=== PATIENT | female | born 2005 | race African-American/Black ===

== ENCOUNTER 2024-10-12 12:17 | Emergency (ER) | payer SELFPAY ==
--- NOTE | ~2024-10-12 | US_ITS ---
EXAMINATION: US OB <=14 wk fetus w TV, US OB <= 14 wk fetus add gest DATE: 10/12/2024 18:55 ROASTMASTER INDICATION: Bleeding, cramping. COMPARISON: 06/03/2024 TECHNIQUE: Real-time transabdominal obstetric ultrasound. FINDINGS: 2 para 0 Last menstrual period is given as 08/15/2024 Estimated date of delivery by last menstrual period is 05/22/2025 Quantitative serum beta hCG is 249,790 The uterus measures 7.7 x 4.8 x 8.5 cm. 2 gestational sacs are visualized. The first gestational sac (baby A) demonstrates a crown-rump length of 19.6 mm, corresponding to an a pproximate gestational age of 8 weeks and 4 days. cardiac activity is identified at a rate of 162 bpm. The second gestational sac (baby B) demonstrates a crown-rump length measuring 19.8 mm, corresponding to an approximate gestational age of 8 weeks and 4 days. cardiac activity is identified at a rate of 176 bpm. A rounded yolk sac is identified measuring 3.9 mm Within the second gestational sac is an additional amniotic membrane which does not demonstrate a fet al pole, but does demonstrate a rounded yolk sac. The right ovary measures 15.4 x 12.1 x 13.2 cm. Dopplerable flow is identified. The left ovary measures 3.4 x 1.3 x 2.0 cm. Dopplerable flow is identified. Estimated date of delivery by ultrasound is 05/18/2025 IMPRESSION: Twin intrauterine gestation with an approximate gestational age of 8 weeks and 4 days, with car diac activity identified. An additional gestation is identified within the second gestational sac without a pole and only an amniotic membrane and yolk sac. Reviewed, dictated and finalized at location A. [facility]MASTER IMPRESSION: Twin intrauterine gestation with an approximate gestational age of 8 weeks and 4 days, with cardiac activity identified. An additional gestation is identified within the second gestational sac without a pole and only an amniotic membrane and yolk sac.
--- OUTSIDE RECORDS SUMMARY | 2024-10-12 12:34 | XMS_ITS | Referral Summary ---
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 Name Role Phone Unavailable Primary Care Provider Unavailabl e Allergies Active Allergy Reactions Criticality Noted Date Comments Iodinated Contrast Media Shortness of breath High Medications ondansetron ODT (ZOFRAN-ODT) 4 mg disintegrating tablet Take 1 tablet (4 mg total) by mouth every 8 (eight) hours as needed for nausea or vomiting 20 tablet 2 Active albuterol HFA (PROVENTIL HFA,VENTOLIN HFA,PROAIR HFA) 90 mcg/actuation inhaler Inhale 2 puffs every 4 (four) hours as needed for wheezing 1 each 2 Active dicyclomine (BENTYL) 20 mg tablet Take 1 tablet (20 mg total) by mouth every 6 (six) hours as needed (abdominal cramps) 20 tablet 2 Active LORazepam (ATIVAN) 0.5 mg tabletIndications:P anic attack Take 1 tablet (0.5 mg total) by mouth every 6 (six) hours as needed for anxiety 10 tablet 3 Active ondansetron (ZOFRAN) 4 mg tablet Take 1 tablet (4 mg total) by mouth every 6 (six) hours 12 tablet 3 Active predniSONE (DELTASONE) 20 mg tablet Take 4 tablets (80 mg) by mouth daily 4 PO x QD x 3 days, Then 3 PO q 3 D, then 2 PO QD x 3 D, Then 1 PO QD x 3 D then 1/2 PO QD x 3 D then stop. 33 tablet 3 Active estradioL (ESTRACE) 2 mg tablet Take 0.5 tablets (1 mg total) by mouth daily 15 tablet 3 Active hydrocortisone (ANUSOL-HC) 2.5 % rectal cream Insert into the rectum 2 (two) times a day 30 g 4 Active Social History Tobacco Use Types Packs/Day Years Used Date Smoking Tobacco: Never Alcohol Use Standard Drinks/Week Comments Yes 0 (1 standard drink = 0.6 oz pur e alcohol) social Personal Safety Answer Date Recorded Have you ever been in or are you currently in a harmful physical or emotional relationship or is someone making you feel afraid or unsafe? Denies 05/26/2024 Comments No Sex and Gender Information Value Date Recorded Sex Assigned at Not on file Legal Sex Female 8:41 PM [employer] Gender Identity Not on file Sexual Orientation Not on file Last Filed Vital Signs Vital Sign Reading Time Taken Comments Blood Pressure 123/65 05/26/2024 4:09 PM CDT Pulse 74 05/26/2024 4:09 PM CDT Temperature 37 C (98.6 F) 05/26/2024 1:24 PM CDT Respiratory Rate 18 05/26/2024 4:09 PM CDT Oxygen Saturation 100% 05/26/2024 4:09 PM CDT Inhaled Oxygen Concentration - - Weight 55 kg (121 lb 4.1 oz) 05/26/2024 1:24 PM CDT Height 162.6 cm (5' 4 ) 01/20/2023 6:53 AM CDT Body Mass Index 20.81 01/20/2023 6:53 AM CDT Plan of Treatment Not on file Insurance [facility]
--- OUTSIDE RECORDS SUMMARY | 2024-10-12 12:34 | XMS_ITS | Data Portability ---
Author Organization [facility] Address [address] [place] [address] Assessment Encounter Date Assessment Date Assessment LastModified by Organization Details LastModified Time 09/04/2024 09/04/2024 Annual gynecological exam performed. Patient will come back in a year unless there are new symptoms. Not available 09/04/2024 12:33:58 Plan of Treatment Reminders Order Date Submit Date Provider Last Modified By Organization Details Last Modified Time Details Appointments None recorded. Lab urinalysis, dipstick 2023 024 [email or web address], [address], [address], [place], [address], 4 14:33:24 hbcab (hepatitis B core Ab) igm, serum 2023 024 [facility] (Lab), [address], [place], [address], 4 20:37:07 HBsAg (hepatitis B surface Ag), serum 2023 024 [facility] (Lab), [address], [place], [address], 4 20:37:05 hepatitis C virus Ab, serum 2023 024 [facility] (Lab), [address], [place], [address], 4 20:37:06 HIV 1+2 AB + HIV 1 p24 Ag, qualitative immunoassay , serum 2023 024 [facility] (Lab), [address] [facility], [place], [address], 4 20:37:05 RPR (rapid plasma reagin), serum 2023 024 [facility] (Lab), [address] [facility], [place], [address], 4 20:37:07 Referral None recorded. Procedures None recorded. Surgeries None recorded. Imaging None recorded. Medication Orders Diflucan 150 mg tablet 2023 024 [facility] [id number], [address] , [place], [place], [id number], 4 09:04:53 Xulane 150 mcg-35 mcg/24 hr transdermal patch 2023 025 [id number], [address], [place], [place], [id number], 5 12:36:03 Patient TargetsNo targets recorded. Patient InstructionsNo instructions recorded. Reason for Referral None Reported. Results Created Date Observation Date Name Description Value Unit Range Abnormal Flag Note LastModifiedBy Organization Detail LastModifiedTime 12/31/19 24 12/31/2023 CT/GC AND TRICH OMONA S VAGIN KADE (RRNA ), SWAB chlamydia trachomatis, PCR Negati ve negati ve Not Available [facility] (Lab) [address] [facility], [place], [address], 01/02/2024 07:18:42 12/31/19 24 12/31/2023 CT/GC AND TRICH OMONA S VAGIN KADE (RRNA ), SWAB neisseria gonorrhoeae, PCR Negati ve negati ve Not Available [facility] (Lab) [address] [facility], [place], [address], 01/02/2024 07:18:42 04/30/20 24 12/31/2023 CT/GC AND TRICH OMONA S VAGIN KADE (RRNA ), SWAB trichomonas vaginalis ribosomal RNA (rrna) Negati ve negati ve Not Available [facility] (Lab) [address] [facility], [place], [address], 01/02/2024 07:18:42 12/31/19 24 12/31/2023 CULTU RE: URINE result report SEE RESULT S BELOW Test: Cultu re: Urine Speci men Sourc e: Urine Voide d Speci men Type: Urine Speci men Date: 2023 4:06 PM Resul t Date: 6:12 AM Resul t Statu s: Final resul t Abnor mal: No Resul ting Lab: [facility] [address] [facility] [address] Tel: CULTU RE ----- ----- ----- --- No growt h in 1 day (dete ction level of 10,00 0 colon ies / ml.) Not Available [facility] (Lab) [address] , [place], [address], 01/02/2024 07:18:43 12/31/19 24 12/31/2023 urina lysis , dipst ick Leukocytes +++ Not Available [facility] [address], [place], [address], 12/31/2023 13:02:23 12/31/19 24 12/31/2023 urina lysis , dipst ick Nitrite + Not Available [facility] [address], [place], [address], 12/31/2023 13:02:23 12/31/19 24 12/31/2023 urina lysis , dipst ick Protein trace Not Available [facility] [address], [place], [address], 12/31/2023 13:02:23 12/31/19 24 12/31/2023 urina lysis , dipst ick pH 5 Not Available [facility] [address], [place], [address], 12/31/2023 13:02:23 12/31/19 24 12/31/2023 urina lysis , dipst ick Blood +++ Not Available [facility] [address], [place], [address], 12/31/2023 13:02:23 12/31/19 24 12/31/2023 urina lysis , dipst ick Specific [place] 1.025 Not Available [facility] [address], [place], [address], 12/31/2023 13:02:23 03/19/20 24 03/19/2024 VAGIN ITIS/ VAGIN OSIS, DNA PROBE eloy sp. detection, direct probe Negati ve negati ve Not Available [facility] (Lab) [address] [facility], [place], [address], 03/20/2024 20:36:28 03/19/20 24 03/19/2024 VAGIN ITIS/ VAGIN OSIS, DNA PROBE gardnerella vag. detection, direct probe Positi ve negati ve abnormal Not Available [facility] (Lab) [address] [facility], [place], [address], 03/20/2024 20:36:28 03/19/20 24 03/19/2024 VAGIN ITIS/ VAGIN OSIS, DNA PROBE trichomonas vag. detection, direct probe Negati ve negati ve Not Available [facility] (Lab) [address] [facility], [place], [address], 03/20/2024 20:36:28 03/19/20 24 03/19/2024 CT/GC AND TRICH OMONA S VAGIN KADE (RRNA ), SWAB chlamydia trachomatis, PCR Negati ve negati ve Not Available [facility] (Lab) [address] [facility], [place], [address], 03/20/2024 20:36:29 03/19/20 24 03/19/2024 CT/GC AND TRICH OMONA S VAGIN KADE (RRNA ), SWAB neisseria gonorrhoeae, PCR Negati ve negati ve Not Available [facility] (Lab) [address] [facility], [place], [address], 03/20/2024 20:36:29 03/19/20 24 03/19/2024 CT/GC AND TRICH OMONA S VAGIN KADE (RRNA ), SWAB trichomonas vaginalis ribosomal RNA (rrna) Negati ve negati ve Not Available [facility] (Lab) [address] [facility], [place], [address], 03/20/2024 20:36:29 03/19/20 24 03/19/2024 HIV 1/2 ANTIG EN/AN TIBOD Y, REFLE X CONFI RMATI ON HIV antigen/anti body Nonrea ctive nonrea ctive HIV-1 antig en and HIV-1 /HIV- 2 antib odies were not detec ramiro. No labor atory evide nce of HIV infec tion. Not Available [facility] (Lab) [address] [facility], [place], [address], 03/20/2024 20:37:05 03/19/20 24 03/19/2024 HEPAT ITIS B SURFA CE ANTIG EN hepatitis B surface antigen Non-re active non-re active This assay was perfo rmed using [employer] ratio n reage nts and test kits. Value s obtai justo with other assay metho ds or kits canno t be used inter cruz eably . Not Available [facility] (Lab) [address] [facility], [place], [address], 03/20/2024 20:37:05 03/19/20 24 03/19/2024 HEPAT ITIS C ANTIB JAKOB SCREE N, REFLE X TO CONFI RMATI ON hepatitis C antibody Non-re active non-re active Antib odies to HCV Not Detec ramiro, does not exclu de the possi bilit y of expos ure to HCV. Not Available [facility] (Lab) [address] [facility], [place], [address], 03/20/2024 20:37:06 03/19/20 24 03/19/2024 HEPAT ITIS B CORE, IGM hepatitis B core IgM antibody Non-re active non-re active IgM anti- HBc not detec ramiro. Does not exclu de the possi bilit y of expos ure to or infec tion with HBV. Not Available [facility] (Lab) [address] [facility], [place], [address], 03/20/2024 20:37:07 03/19/20 24 03/19/2024 RPR SCREE N, REFLE X TITER /CONF IRMAT ION RPR screen Nonrea ctive nonrea ctive Not Available [facility] (Lab) [address] [place], [address], 03/20/2024 20:37:07 09/04/19 25 09/04/2024 IMAGE GUIDE D PAP, REFLE X HPV IF ASCUS ONLY image guided Pap, reflex HPV ASCUS only SEE RESULT S BELOW CASE REPOR T: Cytol ogy Gynec ologi aki Repor t Case: [id number] Autho roseline g Provi will: Tish King, RONAL Colle cted: 09/04 1333 Order ing Locat ion: [place] [facility] Recei mert: 09/07 1027 First Scree n: Noora ni, Moham ed, CT Speci men: Scree cally Pap - Image d, Cervi x STATE MENT OF ADEQU ACY: Satis facto ry for evalu ation Trans forma tion zone compo nent prese nt ----- ----- ----- ----- ----- ----- ----- ----- ----- ----- ----- ----- ----- ----- ----- ----- ----- ---- FINAL DIAGN OSIS: Negat nicolas for Intra epith elial Lesio n or Huma blandon (NIL) . Elect adriana allan d by Ari cortez, CT on 2024 at 2248 HEAD OF LOSS PREVENTION ----- ----- ----- ----- ----- ----- ----- ----- ----- ----- ----- ----- ----- ----- ----- ----- ----- ---- COMME NT: This speci men was revie wed by a Cytot echno logis t and/o r Patho logis t (as indic ated in this repor t) after evalu ation using the Thinp rep Imagi ng Syste m. CLINI AKI INFOR MATIO N: Menst rual Statu s: LMP (if appli cable ): Clini aki Histo ry/Pr eviou s Pap: Type of Neopl ernst (if appli cable ): Signi fican t Clini aki Findi ngs: Other Histo ry: Hormo louise (if appli cable ): PAP EDUCA CRYSTAL L NOTE: The Pap Test is a scree cally test with an inher ent false negat nicolas rate. Liqui d-bas ed sampl ing may decre ase, but will not elimi ricardo, false negat nicolas resul ts. A negat nicolas resul t does not precl ude the prese nce and/o r devel opmen t of disea se, since the prese nce of abnor mal cells in the sampl e depen ds on the locat ion of the lesio n and sampl ing techn ique. Joaquín nued regul ar scree cally is the best metho d of cance r preve ntion . If repor ramiro cytol ogic findi ng do not corre late with physi aki and/o r histo rical findi ngs, furth er inves tigat ion is recom gen d, as clini janelle acevedo nted. Not Available [facility] (Lab) [address] [facility], [place], [address], 09/12/2024 23:51:16 09/04/19 25 09/04/2024 CT/GC (ELODIA) , THINP REP VIAL chlamydia trachomatis, PCR Negati ve negati ve Not Available [facility] (Lab) [address] [facility], [place], [address], 09/12/2024 23:51:17 09/04/19 25 09/04/2024 CT/GC (ELODIA) , THINP REP VIAL neisseria gonorrhoeae, PCR Negati ve negati ve Not Available [facility] (Lab) [address] [facility], [place], [address], 09/12/2024 23:51:17 09/04/19 25 09/04/2024 TRICH OMONA S VAGIN KADE (RRNA ) trichomonas vaginalis ribosomal RNA (rrna) Negati ve negati ve Not Available [facility] (Lab) [address] [facility], [place], [address], 09/12/2024 23:51:18 Result Notes None recorded. Procedures Surgical History Date Name Laterality Status Provider Name and Address Organization Details Recorded Time 3 termination of completed [facility] 12/31/2023 12:45:41 2 termination of completed [facility] 12/31/2023 12:45:37 Imaging Results None recorded. Procedure Notes None recorded. Medical Equipment None Reported. Allergies No known drug allergies Medications Name Sig Start Date Stop Date Status Note LastModified by Organization Details LastModified Time doxycycline hyclate 100 mg capsule TAKE 1 CAPSULE BY MOUTH TWICE DAILY FOR 7 DAYS 09/04 completed Not Available Not Available Not Available fluconazole 150 mg tablet Take 1 tablet every day by oral route with meal(s) for 1 day. 03/23 completed Not Available Not Available Not Available metronidazo le 0.75 % (37.5 mg/5 gram) vaginal gel INSERT 1 APPLICATO RFUL VAGINALLY AT BEDTIME FOR 5 DAYS 09/04 completed Not Available Not Available Not Available prednisone 20 mg tablet 12/30 completed Not Available Not Available Not Available metronidazo le 500 mg tablet TAKE 1 TABLET BY MOUTH EVERY 12 HOURS FOR 7 DAYS 09/04 completed Not Available Not Available Not Available sulfamethox azole 800 mg-trimetho prim 160 mg tablet TAKE 1 TABLET BY MOUTH EVERY 12 HOURS FOR 3 DAYS 09/04 completed Not Available Not Available Not Available hydrocortis one 2.5 % topical cream with perineal applicator INSERT RECTALLY TO THE AFFECTED AREA TWICE DAILY 09/04 completed Not Available Not Available Not Available Depo-Configuration Consultant a 150 mg/mL intramuscul ar suspension Inject 1 mL every 3 months by intramusc ular route. 09/04 completed 12/17 Not Available Not Available Not Available cephalexin 500 mg capsule 12/30 completed Not Available Not Available Not Available estradiol 2 mg tablet 12/30 completed Not Available Not Available Not Available doxycycline hyclate 100 mg tablet TAKE 1 TABLET BY MOUTH TWICE DAILY WITH MEALS 03/19 completed Not Available Not Available Not Available amoxicillin 875 mg-potassiu m clavulanate 125 mg tablet TAKE 1 TABLET BY MOUTH EVERY 12 HOURS FOR 10 DAYS 12/30 completed Not Available Not Available Not Available Mayelin 0.25 mg-35 mcg tablet TAKE 1 TABLET BY MOUTH EVERY DAY 12/30 completed Not Available Not Available Not Available Zafemy 150 mcg-35 mcg/24 hr transdermal patch 09/04 completed Not Available Not Available Not Available Vitals Date Recorded Body height Body mass index (BMI) Body mass index (BMI) Percentile per age and sex Body weight Systolic blood pressure Diastolic blood pressure Provider Name and Address Organization Details Last Updated DateTime 4 162.56 cm 21.5 kg/m2 47 % 45749.0 5 g 114 mm[Hg] 73 mm[Hg] Lisbet Montaño [facility] 4 12:40:09 Date Recorded Body height Body mass index (BMI) Body mass index (BMI) Percentile per age and sex Body weight Systolic blood pressure Diastolic blood pressure Provider Name and Address Organization Details Last Updated DateTime 4 162.56 cm 21.8 kg/m2 50 % 33115.2 3 g 116 mm[Hg] 70 mm[Hg] Marianna Domingo [facility] 4 17:03:17 Date Recorded Body height Body mass index (BMI) Body weight Systolic blood pressure Diastolic blood pressure Provider Name and Address Organization Details Last Updated DateTime 09/04/2024 162.56 cm 19.5 kg/m2 18672.37 g 119 mm[Hg] 75 mm[Hg] Dominga Chapa [facility] 5 12:34:59 Social History Question Answer Notes LastModified by Organizat ion Details LastModified Time Tobacco Smoking Status Never Smoker Lisbet finn, [facility] 12/31/2023 12:44:42 Do You Have An Advance Directive? No [email or web address] Information n ot available 09/04/2024 What Is Your Level Of Alcohol Consumption? Occasional [email or web address] Information not available 09/04/2024 How Many Years Have You Consumed Alcohol? 5 Information not available 12/31/2023 Are You Blind Or Do You Have Difficulty Seeing? No Information n ot available 12/31/2023 What Is Your Level Of Caffeine Consumption? None Information not available 12/31/2023 How Much Tobacco Do You Chew? None [email or web address] Information not available 09/04/2024 In The 14 Days Before Symptom Onset, Have You Had Close Contact With A Laboratory-confirm ed COVID-19 While That Case Was Ill? No Information n ot available 12/31/2023 In The 14 Days Before Symptom Onset, Have You Had Close Contact With A Person Who Is Under Investigation For COVID-19 While That Person Was Ill? No Information not available 12/31/2023 Have You Been To An Area Known To Be High Risk For COVID-19? No Information not available 12/31/2023 Are You Deaf Or Do You Have Serious Difficulty Hearing? No Information not available 12/31/2023 What Type Of Diet Are You Following? REGULAR Information n ot available 12/31/2023 Which Illicit Or Recreational Drugs Have You Used? Marijuana Information not available 12/31/2023 What Is The Highest Grade Or Level Of School You Have Completed Or The Highest Degree You Have Received? [id number] Information not available 12/31/2023 What Is Your Occupation? [employer] [email or web address] Information not available 09/04/2024 Are There Any Guns Present In Your Home? No Information not available 12/31/2023 Do You Use Protection During Sex? No Information not available 12/31/2023 Do You Use Your Seat Belt Or Car Seat Routinely? No Information not available 12/31/2023 Do You Have Smoke And Carbon Monoxide Detectors In Your Home? Yes Information not available 12/31/2023 How Much Tobacco Do You Smoke? No Information not available 12/31/2023 Do You Feel Stressed (tense, Restless, Nervous, Or Anxious, Or Unable To Sleep At Night)? [id number] Information not available 12/31/2023 Do You Use Any Illicit Or Recreational Drugs? Yes Information not available 12/31/2023 Do You Use Sunscreen Routinely? No Information not available 12/31/2023 Have You Used IV Drugs? No Information not available 12/31/2023 Sex: Unknown Functional Status Question Answer Note LastModified by Organizat ion Details LastModified Time Do you have difficulty walking or climbing stairs? No Information not available 03/19/2024 Are you able to walk? YESWOREST Information not available 12/31/2023 Are you able to care for yourself? Yes Information not available 03/19/2024 Do you have difficulty dressing or bathing? No Information not available 03/19/2024 What is your exercise level? None Information not available 12/31/2023 Mental Status None recorded. Family History Relationship Description Onset Age of this Age Resolved Age Notes LastModified by Organization Details LastModified Time Unspecified Relation Family history unknown [email or web address] Not available 2024 12:10:46 Maternal Grandmother Malignant tumor of breast Not available 2023 12:44:25 Medical History Condition Response No Past Medical History Y Gynecological History Statement/Question Response Date of LMP 08/11/2024 On BCP's at Conception? N N Was last menstrual period normal Y STIs/STDs Y HPV Vaccine N Duration of Flow (days) 5 Current Control Method None Are cycles usually normal Y Frequency of Cycle (Q days) 28 Sexually Active? Y None Menses Monthly Y Age of first menstrual cycle 9 Date of Last Pap Smear Sexual Problems? N Desired Control Method None LMP Approximate N Obstetrics History GPAL:G 2 P 0 0 2 0 Type Value Induced 2 Living 0 Total 2 Past Encounters Encounter ID Performer Location Encounter Start Date Encounter Closed Date Diagnosis/Indication Diagnosis SNOMED-CT Code Diagnosis ICD10 Code Diagnosis Note [id number] [facility] [address] [address] 12/31/2023 12:32:02 12/31/2023 13:48:13 Urinary symptoms 257475055 R39.9 Today I agreed to send abx for treatment and send testing (std, urine, vag screening) .Agreeable to plan of care. Counseled on medication R/B's, Most common side effects, & use. All questions were answered to patient satisfacti on. Health Hx was reviewed and updated as reported in chart.Ryan crossSTD sent+nitra christian on urine dip Time spent in visit is a total of 30 mins with at least 50% of visit consisting of counseling and review of plan of care. Vaginitis 75158011 N76.0 Dysuria 04505990 R30.0 Urine cx sent [id number] DANETTE Silva [facility] [address] [address] 03/19/2024 16:57:40 03/19/2024 17:34:50 Contraception care management 677613081 Z30.9 Discussed all control options in great detail. Pt would like to start xulane patch. She is aware of the risks and benefits. She does not have any medical condition that is contraindi cated with the use of estrogen containing control. Pt will place the patch then replace weekly x 2 (total of 3 patches over 3 weeks) and week 4 no patch. She is aware it is not effective for control the first month. She is also aware that she will need to check placement daily to ensure it has not come off. Encouraged use of condoms as the patch does not protect against STI's. Will return in 3 months for med check. Consent was read and signed. Pt verbalized understand ing. Venereal d isease screening 595877647 Z11.3 Sexually t ransmitted infectious disease 1992571 A64 patient collected vaginitis and STI panel sentHIV/He p B&C/Syphil is testing ordered per pt requestsaf e sexual practices discussedv ulvar care bradford discussed Time spent in visit is a total of 30 mins with at least 50% of visit consisting of counseling and review of plan of care. [id number] DANETTE Silva [facility] [address] [address] 09/04/2024 12:10:23 09/04/2024 14:01:43 Gynecologic examination 32838737 Z01.419 WWEBC - declinedPa p - done todaySTI screen - declinedRo utine labs - PCPRTC in 1 yr or sooner if needed It is strongly advised to have an annual flu shot and up can obtain at most pharmacies . If you have not had a TDap shot in the last 10 years you should obtain one as well. Discussed with patient & provided with informatio n regarding the HPV vaccine if applicable . Encourage safe sexual practices, to use condoms and limit partners if not already in a monogamous relationsh ip. Do monthly self breast exams. BRCA testing is now available for patients with strong genetic history of female cancer. If interested contact the office. Engage in regular exercise. Avoid tobacco and illicit drugs. This lifestyle behavior pattern will lead to less health conditions and longer life span. If BMI greater than 25 dietary consult advised. Questions answered. Health Concerns Section Related Observation LastModified by Organization Detai ls LastModified Time None Recorded Concern Status LastModified by Organization Details LastModified Time None Recorded Advance Directives Directive N: Payers Encounter Date Sequence Insurance Name Policy Number Policy Eli Covered Member ID Eli Member ID Guarantor Name 12/31/2023 1 [facility] ON OR AFTER 03/02/21 (MEDICAID REPLACEMENT - HMO) Tess Cortes [id number] Tess Cortes 03/19/2024 1 [facility] ON OR AFTER 03/02/21 (MEDICAID REPLACEMENT - HMO) Tess Cortes [id number] Tess Cortes 09/04/2024 1 [facility] - DOS ON OR AFTER 21 (MEDICAID REPLACEMENT - HMO) Tess Cortes [id number] Tess Cortes Notes Date Note Type Note Provider Name and Address Organization Details Recorded Time 12/31/2023 text/html Tess is a 18yo reproductive age female here today with sx's of urinary urgency, frequency, bladder pressure; some dysuria.Went to urgent care but told she didn't have anything.Still with these sx's. Neg pain of abd/pelvis/flankNe g urinary sx'sNeg GI sx'sNeg N/V/F/C/DNeg Vag d/c, odor, irritation, itching Health Hx was reviewed and updated as reported in chart (in private) DANETTE Stephens[facility] [address], [place], [address], [facility] 12/31/2023 14:33:51 03/19/2024 text/html 18yo [id number] for BC consulthas been on depo, last injection 12/18/2023wants to discuss other options, int in the patch would like STI testinghad vaginal itching a few days ago, resolved after using OTC monistat denies h/o DVT/PE, HTN, Stroke/[place], cancer, liver disease, or migraine with aura DANETTE Silva [address], [place], [address], [facility] 03/19/2024 17:34:32 09/04/2024 text/html Annual GYNReport ed bypatient.Menstrua l cycle:Normal menses Urinary symptoms:No hematuria; No incontinence Vulva:No genital lesion Vagina:Normal vaginal discharge Breast:No breast pain; No breast lump; No nipple discharge Sexual complaints:No sexual complaints; No pain during intercourse; Normal libido Menopausal Symptoms:No menopausal symptoms; Normal vaginal lubrication Psychological symptoms:No depression; No anxiety; No PMDD Preventive measures:Encourage self breast examination; Encourage regular exercise; Encourage no tobacco use; Encourage regular mammograms starting age 40 DANETTE Silva [address], [place], [address], [facility] 09/04/2024 14:00:10 OBGyn Episode Ob Episode Information Episode Created Date Number of Fetuses Patient Bloodtype Patient rh Status Prepregnancy Weight lbs Domestic Partner Domestic Partner Phone Father Name [employer] Installer Status 12/31/19 24 1 CLOSED Fetus Data First Name Last Name Admitted to NICU Weight (g) Sex Living Outcome Pediatric Complications Fetus ID Race Codes Race Delivery Type , Induced [id number] Brandan Calculation Initial Brandan Date Initial Exam Date Initial Exam Provider Initial Ultrasound Date Last Menstrual Period Date Ultra Sound Weeks Gestation 0 Eighteen To Twenty Week Brandan Update Ultra Sound Date Fundal Height At Umbil Quickening Date Ultra Sound Latest Weeks Gestation Final Brandan Confirmed By Final Brandan Confirmed Date Final Brandan Date Ultra Sound Latest Days Gestation 0 0 Menstrual History Last Menstrual Date Menses Monthly On Bcp Conception Prior Menses Frequency Hcg Plus Date Menarche Onset Age Delivery Information Delivery Date Delivery Type Labor Anesthesia Weeks Gestation Incision Type Labor Labor Length Hrs Delivered By Post Complications Tubal Sterilization Discharge Date Comments 2 Discharge Information Feeding Method Contraceptive Method Maternal HG B and HCT Levels Ob Episode Information Episode Created Date Number of Fetuses Patient Bloodtype Patient rh Status Prepregnancy Weight lbs Domestic Partner Domestic Partner Phone Father Name Cabinet And 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 Installer Status 12/31/19 24 1 CLOSED Fetus Data First Name Last Name Admitted to NICU Weight (g) Sex Living Outcome Pediatric Complications Fetus ID Race Codes Race Delivery Type , Induced [id number] Brandan Calculation Initial Brandan Date Initial Exam Date Initial Exam Provider Initial Ultrasound Date Last Menstrual Period Date Ultra Sound Weeks Gestation 0 Eighteen To Twenty Week Brandan Update Ultra Sound Date Fundal Height At Umbil Quickening Date Ultra Sound Latest Weeks Gestation Final Brandan Confirmed By Final Brandan Confirmed Date Final Brandan Date Ultra Sound Latest Days Gestation 0 0 Menstrual History Last Menstrual Date Menses Monthly On Bcp Conception Prior Menses Frequency Hcg Plus Date Menarche Onset Age Delivery Information Delivery Date Delivery Type Labor Anesthesia Weeks Gestation Incision Type Labor Labor Length Hrs Delivered By Post Complications Tubal Sterilization Discharge Date Comments 3 Discharge Information Feeding Method Contraceptive Method Maternal HG B and HCT Levels
--- OUTSIDE RECORDS SUMMARY | 2024-10-12 12:34 | XMS_ITS | Clinical Summary ---
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 Gender Identity Not on file Sexual Orientation Not on file Obstetrics History Para Term AB IAB SAB Ectopic Multiple Livin g Live Births 1 Date Outcome GA Total Labor Labor/2nd/3rd Weight Sex Type Anes PTL Flor A1 A5 Name Clin Last Filed Vital Signs Vital Sign Reading [...] 01/20/2023 6:53 AM CDT Plan of Treatment Health Maintenance Due Date Last Done Comments Cervical Cancer Screening 2003 Depression Screening 2003 Hepatitis C Screening 2003 HPV Vaccines (3 - 2-dose series) 09/30/2014 06/03/2014, 03/30/2014 Meningococcal B Vaccine (1 of 2 - Patient Seeks Protection) 2019 Regular Well Visit/Exam 18-64 2021 DTaP/Tdap/Td Vaccine (6 - Td or Tdap) 03/30/2024 03/30/2014, 03/26/2005, 02/10/2004, Additional history exists Influenza Vaccine (#1) 2024 06/03/2014, 2011 Pneumococcal vaccine <65 Aged Out 2003, 10/31 No longer eligible based on patient's age to complete this topic Varicella Vaccines Completed 03/30/2014, 03/26/2005 Meningococcal Vaccine Aged Out 06/03/2014 No chuck dominik eligible based on patient's age to complete this topic Insurance [facility]
[2024-10-12 12:47] VITALS: BP 119/72; PULSE 82; RESP 20; TEMP 37.2; O2SAT 100
--- NOTE | 2024-10-12 14:03 | ED_ITS ---
HPI - General Chief complaint: Vaginal Bleeding <Mlya Garcias PA-C - Last Filed: 10/14/24 18:47> Stated complaint: 8 weeks , bleeding x2 weeks, <Myla Garcias PA-C - Last Filed: 10/14/24 18:47> Time Seen by Provider: 10/12/24 14:03 <Myla Garcias PA-C - Last Filed: 10/14/24 18:47> Focused HPI: This is a 19 year old female that presents to the ER for vaginal bleeding. Reports she has had nausea, vomiting, diarrhea, pelvic cramping. She has had vaginal spotting/bleeding the last couple of weeks. She has not had an US yet this . She is about 8 weeks . She does not have an PATIENT TRANSITION SPECIALIST. GENERAL: Well-appearing, well-nourished, and in no acute distress. HEAD: Normocephalic, atraumatic. CHEST: Clear to auscultation. ?No respiratory distress. HEART: Regular rate and rhythm.? NEURO: ?Alert and oriented x3. Patient screened in triage and initial orders placed.? ?Additional care and disposition to be based upon?diagnostic testing and treatment. <Myla Garcias PA-C - Last Filed: 10/14/24 18:47> History of Present Illness HPI Narrative: I agree with the assessment and documentation of Dieter Lanza PA-C. < Jolanta Gilmore APRN - Last Filed: 10/12/24 20:01> Related Data Allergies/Adverse reactions: Allergies Allergy/AdvReac Type Severity Reaction Status Date / Time No Known Allergies Allergy Verified 10/12/24 19:02 <Myla Garcias PA-C - Last Filed: 10/14/24 18:47> Review of Systems 2 Review of Systems: All systems reviewed & are unremarkable except as noted in HPI and below <Jolanta Gilmore APRN - Last Filed: 10/12/24 20:01> [facility] Past Medical History Medical History: Medical History (Updated 10/14/24 @ 18:46 by Myla Garcias PA-C) No active medical problems <Myla Garcias PA-C - Last Filed: 10/14/24 18:47> Exam 2 Narrative: GENERAL: Well appearing, well-nourished, non-toxic, in no acute distress. HEAD: Normocephalic, atraumatic. NECK: Supple. No adenopathy, no masses. RESPIRATORY: Airway patent, respirations nonlabored. Clear to auscultation bilaterally, no rales, rhonchi, wheezing. CARDIOVASCULAR: Regular rate and rhythm without murmurs, rubs, or gallops. Peripheral pulses 2+ and equal bilaterally. ABDOMINAL: Soft, + suprapubic tenderness, nondistended, no hepatosplenomegaly. Normoactive BS. MUSCULOSKELETAL: Moves all extremities. Strength/ROM intact without gross deformities. SKIN: Warm, dry, normal color. No rashes. NEURO: A&O X3. Speech clear. Cranial nerves II-XII grossly intact. Steady gait. No ataxic movements. PSYCHIATRIC: Appropriate mood and affect. Normal interaction. *Pt declined a vaginal exam. <Jolanta Gilmore APRN - Last Filed: 10/12/24 20:01> Course Vital Signs Vital signs: Vital Signs Temperature 98.9 F 10/12/24 12:47 Pulse Rate 82 10/12/24 12:47 Respiratory Rate 20 10/12/24 12:47 Blood Pressure 119/72 10/12/24 12:47 Pulse Oximetry 100 10/12/24 12:47 Oxygen Delivery Room Air 10/12/24 12:47 Temperature 98.9 F 10/12/24 12:47 Pulse Rate 82 10/12/24 12:47 Respiratory Rate 20 10/12/24 12:47 Blood Pressure 119/72 10/12/24 12:47 Pulse Oximetry 100 10/12/24 12:47 Oxygen Delivery Room Air 10/12/24 12:47 <Myla Garcias PA-C - Last Filed: 10/14/24 18:47> Vital Signs Temperature 98.9 F 10/12/24 12:47 Pulse Rate 82 10/12/24 12:47 Respiratory Rate 20 10/12/24 12:47 Blood Pressure 119/72 10/12/24 12:47 Pulse Oximetry 100 10/12/24 12:47 Oxygen Delivery Room Air 10/12/24 12:47 Temperature 98.9 F 10/12/24 12:47 Pulse Rate 82 10/12/24 12:47 Respiratory Rate 20 10/12/24 12:47 Blood Pressure 119/72 10/12/24 12:47 Pulse Oximetry 100 10/12/24 12:47 Oxygen Delivery Room Air 10/12/24 12:47 <Jolanta Gilmore APRN - Last Filed: 10/12/24 20:01> MDM - OB/Uterine Contractions MDM Narrative Medical decision making narrative: Patient is a 19 year old female that presents to the ER for vaginal bleeding. Reports she has had nausea, vomiting, diarrhea, pelvic cramping. She has had vaginal spotting/bleeding the last couple of weeks. She has not had an US yet this . She is about 8 weeks . She does not have an PATIENT TRANSITION SPECIALIST. Pt also endorses bilateral conjunctivitis that started in her L eye and has moved to her R eye. She reports she was on antibiotic eye drops, but the infection isn't getting better. Labs Ordered: CMP, CBC, beta HCG, Rho D Immune Globulin Imaging Ordered: Ultrasound Ob less than 14 weeks Medications Ordered: Reglan PO (nausea) Results: Patient's ultrasound indicated Twin intrauterine gestation with an approximate gestational age of 8 weeks and 4 days, with cardiac activity identified. An additional gestation is identified within the second gestational sac without a pole and only an amniotic membrane and yolk sac. Diagnosis: Twin intrauterine gestation, abnormal vaginal bleeding during Consults: OTOLARYNGOLOGY PHYSICIAN (outpatient) Patient Education/Shared MDM: Results shared with patient. She verbalizes understanding of US results. Patient declined a vaginal exam and says she will follow-up with an OBGYN for the examination. Patient strongly advised to maintain hydration status upon discharge and follow-up with an OBGYN as soon as possible. She continues to endorse nausea, so pt will be given a dose of Reglan here in the ER. Pt will be discharged home with prescription for Reglan to help treat her nausea and erythromycin ointment to treat her eye infection. Strict return precautions provided. Patient verbalized understanding is in agreement with plan. Vital signs stable at time of discharge. All questions answered. < Jolanta Gilmore APRN - Last Filed: 10/12/24 20:01> Differential Diagnosis Differential diagnosis: Likely other (threatened , abnormal uterine bleeding during ) <Jolanta Gilmore APRN - Last Filed: 10/12/24 20:01> Lab Data Attestation: I reviewed the patient's lab results. <Jolanta Gilmore, ELKE - Last Filed: 10/12/24 20:01> Result diagrams: 10/12/24 16:18 10/12/24 16:18 <Myla Garcias PA-C - Last Filed: 10/14/24 18:47> Labs: Lab Results 10/12/24 Range/Units 16:18 WBC 6.2 (4.5-10.0) K/mm3 RBC 4.81 (4.2-5.4) M/mm3 Hgb 12.4 (12.0-15.0) g/dL Hct 37.1 (37.0-47.0) % MCV 77.1 L (80-100) fl MCH 25.8 L (26-34) pg MCHC 33.4 (32-36) g/dl RDW 15.2 H (11.5-14.5) % Plt Count 216 (150-375) k/mm3 MPV 11.9 H (7.4-10.4) fl Immature Gran % (Auto) Not Reportable Neut % (Auto) Not Reportable Lymph % (Auto) Not Reportable [place] % (Auto) Not Reportable Eos % (Auto) Not Reportable Baso % (Auto) Not Reportable Lymph # (Auto) Not Reportable [place] # (Auto) Not Reportable Eos # (Auto) Not Reportable Baso # (Auto) Not Reportable Abs Immat Gran (auto) Not Reportable Absolute Neuts (auto) Not Reportable Absolute Nucleated RBC Not Reportable Total Counted 100 Neutrophils % (Manual) 70 (46-73) % Lymphocytes % (Manual) 27.0 (18-44) % Monocytes % (Manual) 3 (3-9) % Nucleated RBC % Not Reportable Abs Lymphs (Manual) 1.67 (1.1-4.5) K/mm3 Abs Monocytes (Manual) 0.18 (0.1-0.90) K/mm3 Platelet Estimate Adequate (Adequate) Large Platelets Present Anisocytosis 2+ Microcytosis 1+ (NORMAL) Schistocytes None seen Sodium 137 (137-145) mmol/L Potassium 3.5 (3.4-5.0) mmol/L Chloride 106 (98-107) mmol/L Carbon Dioxide 16 L (22-30) mmol/L Anion Gap 15 H (4-12) mmol/L BUN 8 (7-17) mg/dL Creatinine 0.39 L (0.7-1.0) mg/dL Estim Creat Clear Calc 147 ml/min Estimated GFR > 60 (59 - ) Glucose 70 (65-110) mg/dL Calcium 9.3 (8.4-10.2) mg/dL Total Bilirubin 0.7 (0.2-1.3) mg/dL AST 19 (14-36) U/L ALT 13 (6-35) U/L Alkaline Phosphatase 50 (38-126) U/L Total Protein 7.0 (6.3-8.2) g/dL Albumin 3.9 (3.5-5.1) g/dL Beta HCG, Quant 121163.00 mIU/ML Blood Type A Positive Antibody Screen Negative Screen TNP Baby's Blood Type TNP Baby's DAVID TNP Doses of RhIg Required 0 <Myla Garcias PA-C - Last Filed: 10/14/24 18:47> Lab Results 10/12/24 Range/Units 16:18 WBC 6.2 (4.5-10.0) K/mm3 RBC 4.81 (4.2-5.4) M/mm3 Hgb 12.4 (12.0-15.0) g/dL Hct 37.1 (37.0-47.0) % MCV 77.1 L (80-100) fl MCH 25.8 L (26-34) pg MCHC 33.4 (32-36) g/dl RDW 15.2 H (11.5-14.5) % Plt Count 216 (150-375) k/mm3 MPV 11.9 H (7.4-10.4) fl Immature Gran % (Auto) Not Reportable Neut % (Auto) Not Reportable Lymph % (Auto) Not Reportable [place] % (Auto) Not Reportable Eos % (Auto) Not Reportable Baso % (Auto) Not Reportable Lymph # (Auto) Not Reportable [place] # (Auto) Not Reportable Eos # (Auto) Not Reportable Baso # (Auto) Not Reportable Abs Immat Gran (auto) Not Reportable Absolute Neuts (auto) Not Reportable Absolute Nucleated RBC Not Reportable Total Counted 100 Neutrophils % (Manual) 70 (46-73) % Lymphocytes % (Manual) 27.0 (18-44) % Monocytes % (Manual) 3 (3-9) % Nucleated RBC % Not Reportable Abs Lymphs (Manual) 1.67 (1.1-4.5) K/mm3 Abs Monocytes (Manual) 0.18 (0.1-0.90) K/mm3 Platelet Estimate Adequate (Adequate) Large Platelets Present Anisocytosis 2+ Microcytosis 1+ (NORMAL) Schistocytes None seen Sodium 137 (137-145) mmol/L Potassium 3.5 (3.4-5.0) mmol/L Chloride 106 (98-107) mmol/L Carbon Dioxide 16 L (22-30) mmol/L Anion Gap 15 H (4-12) mmol/L BUN 8 (7-17) mg/dL Creatinine 0.39 L (0.7-1.0) mg/dL Estim Creat Clear Calc 147 ml/min Estimated GFR > 60 (59 - ) Glucose 70 (65-110) mg/dL Calcium 9.3 (8.4-10.2) mg/dL Total Bilirubin 0.7 (0.2-1.3) mg/dL AST 19 (14-36) U/L ALT 13 (6-35) U/L Alkaline Phosphatase 50 (38-126) U/L Total Protein 7.0 (6.3-8.2) g/dL Albumin 3.9 (3.5-5.1) g/dL Beta HCG, Quant 830791.00 mIU/ML Blood Type A Positive Antibody Screen Negative Screen TNP Baby's Blood Type TNP Baby's DAVID TNP Doses of RhIg Required 0 <Jolanta Gilmore APRN - Last Filed: 10/12/24 20:01> Imaging Data Attestation: I personally reviewed and interpreted this imaging study as follows: < Jolanta Gilmore APRN - Last Filed: 10/12/24 20:01> Radiologist's impression: Impressions Ultrasound 10/12/24 18:54 IMPRESSION: Twin intrauterine gestation with an approximate gestational age of 8 weeks and 4 days, with cardiac activity identified. An additional gestation is identified within the second gestational sac without a pole and only an amniotic membrane and yolk sac. Obstetrics Ultrasound 10/12/24 18:54 IMPRESSION: Twin intrauterine gestation with an approximate gestational age of 8 weeks and 4 days, with cardiac activity identified. An additional gestation is identified within the second gestational sac without a pole and only an amniotic membrane and yolk sac. <Jolantasydnee Gilmore APRN - Last Filed: 10/12/24 20:01> Critical Care Time Critical Care Time Critical Care Time: No <Myla Garcias PA-C - Last Filed: 10/14/24 18:47> Discharge Plan Discharge Clinical Impression: Threatened , Dysfunctional uterine bleeding <Myla Garcias PA-C - Last Filed: 10/14/24 18:47> Patient Disposition: Home, Self-Care <Myla Garcias PA-C - Last Filed: 10/14/24 18:47> Condition: Stable <TASHA Barry Last Filed: 10/14/24 18:47> Instructions: Antibiotic Form, Threatened Miscarriage (ED), (ED) <Myla Garcias PA-C - Last Filed: 10/14/24 18:47> Additional Instructions: Please return to the ER with an worsening symptoms. Follow-up with an OBGYN as soon as possible. Take all medications as prescribed. <Myla Garcias PA-C - Last Filed: 10/14/24 18:47> Patient Language: Danish <Myla Garcias PA-C - Last Filed: 10/14/24 18:47> Prescriptions: New erythromycin 5 mg/gram (0.5 %) ointment 0.5 inch EACH EYE TID 5 Days Qty: 50 0RF metoclopramide HCl [Reglan] 10 mg tablet 10 mg PO Q6H PRN (Reason: nausea and vomiting) Qty: 20 0RF <Myla Garcias PA-C - Last Filed: 10/14/24 18:47> Follow-up/Referrals: Devin Vasquez MD [Physician] - (PATIENT TRANSITION SPECIALIST) PHYSICIAN NOT ON STAFF,NONSTAFF [Primary Care Provider] - <Myla Garcias PA-C - Last Filed: 10/14/24 18:47> Time of Disposition: 19:49 <Myla Garcias PA-C - Last Filed: 10/14/24 18:47> 19:49 <Jolanta Gilmore APRN - Last Filed: 10/12/24 20:01>
[2024-10-12 16:25] LABS: Hematocrit 37.1 % (37.0-47.0); Hemoglobin 12.4 g/dL (12.0-15.0); Mean Corpuscular HGB Conc 33.4 g/dl (32-36); Mean Corpuscular Hemoglobin 25.8 pg (26-34); Mean Corpuscular Volume 77.1 fl (80-100); Mean Platelet Volume 11.9 fl (7.4-10.4); Platelet Count Result 216 k/mm3 (150-375); Red Blood Count 4.81 M/mm3 (4.2-5.4); Red Cell Distribution Width 15.2 % (11.5-14.5); White Blood Count 6.2 K/mm3 (4.5-10.0)
[2024-10-12 16:35] LABS: Alanine Aminotransferase 13 U/L (6-35); Albumin Level 3.9 g/dL (3.5-5.1); Alkaline Phosphatase 50 U/L (38-126); Anion Gap 15 mmol/L (4-12); Aspartate Amino Transferase 19 U/L (14-36); Bilirubin,Total 0.7 mg/dL (0.2-1.3); Blood Urea Nitrogen 8 mg/dL (7-17); Calcium 9.3 mg/dL (8.4-10.2); Carbon Dioxide 16 mmol/L (22-30); Chloride 106 mmol/L (98-107); Estimated CRCL calculation 147 ml/min; Estimated Glomerular Filt Rate > 60; Glucose 70 mg/dL (65-110); Potassium 3.5 mmol/L (3.4-5.0); Sodium 137 mmol/L (137-145)
[2024-10-12 16:46] LABS: Large Platelets Present; Lymphocytes Absolute Manual 1.67 K/mm3 (1.1-4.5); Monocytes Absolute Manual 0.18 K/mm3 (0.1-0.90); Monocytes Percent Manual 3 % (3-9); Neutrophils Percent Manual 70 % (46-73); Total Cells Counted 100
[2024-10-12 16:47] LABS: Anisocytosis 2+; Microcytosis 1+ (NORMAL); Platelet Estimate Adequate (Adequate); Schistocytes None Seen
--- OUTSIDE RECORDS SUMMARY | 2024-10-12 18:58 | XMS_ITS | Referral Summary ---
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
--- OUTSIDE RECORDS SUMMARY | 2024-10-12 18:58 | XMS_ITS | Clinical Summary ---
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
[2024-10-12] MEDS: SODIUM CHLORIDE 0.9% IV 1,000 ML 999 ML IV CONT (19:04)
[2024-10-12] MEDS: METOCLOPRAMIDE HCL 10 MG TABLET PO (19:53)
== END 2024-10-12 20:59 | disposition home or self-care (01) ==
PROVIDERS: Physician Assistant; Emergency Provider Registered Nurse
DX: O20.0 Threatened abortion (principal); Z3A.08 8 weeks gestation of pregnancy
CPT/HCPCS: 36415; 76801; 76802; 76817; 80053; 84702; 85025; 85461; 86850; 86900; 86901; 96360; 99284; A9270; J7030

== ENCOUNTER 2024-11-05 08:40 | Emergency (ER) | payer OTHER, SELFPAY ==
--- NOTE | ~2024-11-05 | US_ITS ---
EXAMINATION: US OB <= 14 weeks fetus, US OB <= 14 wk fetus add gest DATE: 11/05/2024 10:11 INDICATION: Abdominal pain during first trimester of a twin TECHNIQUE: Real-time pelvic ultrasound utilizing both a transvaginal and transabdominal probe was pe rformed. The interpreting radiologist was not present for the study. COMPARISON: None. FINDINGS: The uterus measures 12.3 x 7.7 x 10.3 cm. There is a single bilobed intrauterine gestational sac with 2 living fetuses. A previously the 2 fetuses were each located in one of the components of the gesta tional sac which communicated by 2 mm anechoic isthmus on the prior study. In the current study fetus B is positioned with the vertex within the smaller component of the gestational sac located more ant eriorly at the fundus, the neck at the isthmus of the gestational sac and the thorax, abdomen a nd extremities of fetus B positioned along with fetus a within the larger component of the gestationa l sac. The isthmus measures up to 10 mm in maximal diameter on the current study. There is a thin int ervening membrane consistent with a monochorionic, diamniotic . There is a 4.1 x 1.4 x 2.9 c m ovoid hypoechoic subserosal fibroid along the anterior margin of the uterus. The crown rump length for fetus A measures 6.0 cm, which correlates with an estimated gestational age of 12 weeks and 3 days. heart motion is identified measuring 151 beats per minute (bpm) by M-m ode Doppler. The crown rump length for fetus B measures 6.1, which correlates with an estimated gestational age of 12 weeks and 4 days. heart motion is identified measuring 150 beats per minute (bpm) by M-mode Doppler. The bilateral ovaries are not visualized. There is no free fluid in the pelvis. IMPRESSION: 1. Monochorionic, diamnionic with 2 living fetuses. There is an irregular configuration to the gestational sac with bilobed appearance and shelf like extension of the gestational sac which re sults in a narrow isthmus the 2 lobes of the sac. Fetus B is currently positioned with the neck at the isthmus with the head in the smaller lobe and the remainder of the body and extrem ities positioned within the larger lobe along with the second fetus A. For reference the width of the isthmus measures approximately 1.0 cm relative to the diameter of the head of fetus B which measures approximately 2.3 cm. 2. crown-rump length measurements for both fetuses are concordant with the previously estimated gestational age by ultrasound of 12 weeks 2 day(s) chest upon the earlier ultrasound performed on 06/2025 which yielded an ultrasound estimated date of delivery (BERNADINE) of 05/18/2025. Please correlate w ith clinical information or earlier ultrasounds for most accurate BERNADINE. Reviewed, dictated and finalized at location L. ARY CLERK IMPRESSION: 1. Monochorionic, diamnionic with 2 living fetuses. There is an irre gular configuration to the gestational sac with bilobed appearance and shelf li ke extension of the gestational sac which results in a narrow isthmus separatin g the 2 lobes of the sac. Fetus B is currently positioned with the neck a t the isthmus with the head in the smaller lobe and the remainder of the body a nd extremities positioned within the larger lobe along with the second fetus A. For reference the width of the isthmus measures approximately 1.0 cm relative to the diameter of the head of fetus B which measures approximately 2.3 cm. 2. crown-rump length measurements for both fetuses are concordant with th e previously estimated gestational age by ultrasound of 12 weeks 2 day(s) chest upon the earlier ultrasound performed on 10/12/2024 which yielded an ultrasound estimated date of delivery (BERNADINE) of 05/18/2025. Please correlate with clinical information or earlier ultrasounds for most accurate BERNADINE.
[2024-11-05 08:39] VITALS: BP 135/92; PULSE 110; RESP 22; TEMP 36.9; O2SAT 100
[2024-11-05 09:03] LABS: Basophils Percent Auto 0.6 % (0.2-1.2); Eosinophils Absolute Auto 0.1 K/mm3 (0-0.3); Eosinophils Percent Auto 1.7 % (0-4.4); Hematocrit 33.6 % (37.0-47.0); Hemoglobin 11.2 g/dL (12.0-15.0); Immature Granulocyte Absolute 0.02 K/mm3 (0.00-0.031); Immature Granulocyte Percent A 0.4 % (0-0.5); Lymphocytes Percent Auto 31.5 % (18.3-44.2); Mean Corpuscular HGB Conc 33.3 g/dl (32-36); Mean Corpuscular Hemoglobin 25.9 pg (26-34); Mean Corpuscular Volume 77.8 fl (80-100); Mean Platelet Volume 11.4 fl (7.4-10.4); Monocytes Absolute Auto 0.5 K/mm3 (0.1-0.6); Monocytes Percent Auto 8.3 % (2.6-8.5); Neutrophils Absolute Auto 3.1 K/mm3 (1.3-6.7); Neutrophils Percent Auto 57.5 % (45.5-73.1); Platelet Count Result 218 k/mm3 (150-375); Red Blood Count 4.32 M/mm3 (4.2-5.4); Red Cell Distribution Width 15.6 % (11.5-14.5); White Blood Count 5.4 K/mm3 (4.5-10.0)
[2024-11-05 09:17] LABS: Alanine Aminotransferase 15 U/L (6-35); Albumin Level 3.7 g/dL (3.5-5.1); Alkaline Phosphatase 47 U/L (38-126); Anion Gap 11 mmol/L (4-12); Aspartate Amino Transferase 22 U/L (14-36); Bilirubin,Total 0.5 mg/dL (0.2-1.3); Blood Urea Nitrogen 8 mg/dL (7-17); Calcium 9.1 mg/dL (8.4-10.2); Carbon Dioxide 17 mmol/L (22-30); Chloride 109 mmol/L (98-107); Estimated CRCL calculation 159 ml/min; Estimated Glomerular Filt Rate > 60; Glucose 74 mg/dL (65-110); Potassium 3.8 mmol/L (3.4-5.0); Sodium 137 mmol/L (137-145)
[2024-11-05 09:27] LABS: INR 1.1; Prothrombin Time 14.2 Seconds (11.1-14.7)
[2024-11-05 09:28] LABS: Partial Thromboplastin Time 26.8 Seconds (22.3-36.8)
--- NOTE | 2024-11-05 10:00 | ED.ABDPAIN ---
HPI - Abdominal Pain General Chief Complaint: Abdominal Pain Stated Complaint: lower abd pain, 11 wks Time Seen by Provider: 11/05/24 09:01 Source: patient Mode of arrival: ambulatory Limitations: no limitations History of Present Illness HPI narrative: Patient is a 19 y/o female who presents to the ED with c/o abdominal pain. Patient reports having lower abdominal cramping that began last night, worsening today. Patient is currently 11 weeks gestation with twin . . Saw Maternal- Medicine at [facility] yesterday and was told 1 of the baby's has a band wrapped around its waist and may have developmental issues. Patient expresses her interest in terminating the . She denies any vaginal bleeding. Reports intermittent nausea, denies vomiting. Denies fevers. Related Data Allergies Allergy/AdvReac Type Severity Reaction Status Date / Time No Known Allergies Allergy Verified 11/05/24 11:40 Review of Systems Review of Systems: All systems reviewed & are unremarkable except as noted in HPI. All systems reviewed & are unremarkable except as noted in HPI and below PMFSH Past Medical History Medical History (Updated 11/05/24 @ 17:34 by Sasha Masters PA-C) No active medical problems Exam Narrative: GENERAL: Well appearing, thin, non-toxic, in no acute distress. HEAD: Normocephalic, atraumatic. RESPIRATORY: Airway patent, respirations nonlabored. Clear to auscultation bilaterally, no rales, rhonchi, wheezing. CARDIOVASCULAR: Regular rate and rhythm ABDOMINAL: Soft, mild TTP in LLQ, nondistended. Normoactive BS. MUSCULOSKELETAL: Moves all extremities. No gross deformities. SKIN: Warm, dry, normal color. NEURO: A&O X3. Speech clear. PSYCHIATRIC: Appropriate mood and affect. Normal interaction. Course Vital Signs Vital signs: Vital Signs Temperature 98.4 F 11/05/24 08:39 Pulse Rate 110 H 11/05/24 08:39 Respiratory Rate 22 H 11/05/24 08:39 Blood Pressure 135/92 H 11/05/24 08:39 Pulse Oximetry 100 11/05/24 08:39 Oxygen Delivery Room Air 11/05/24 08:39 Temperature 97.8 F 11/05/24 10:35 Pulse Rate 72 11/05/24 11:28 Respiratory Rate 16 11/05/24 11:28 Blood Pressure 127/76 11/05/24 11:28 Pulse Oximetry 100 11/05/24 11:28 Oxygen Delivery Room Air 11/05/24 08:39 MDM - Abdominal Pain MDM Narrative Medical decision making narrative: Patient presented to ED with lower abdominal cramping. Currently 11 weeks gestation with twins. Seeing Danette PARKER, had US yesterday and was told abnormal. Vital signs stable upon arrival. Patient in no acute distress upon my evaluation. Cbc without leukocytosis. CMP is unremarkable. Blood type is A positive. Beta-hCG today is 149787. This is decreased from previous HCG in October around 250,000. UA is clear, no signs of infection. Ultrasound today showing monochorionic, diamniotic , 2 living fetuses, but abnormal bilobed gestational sac with narrow isthmus is causing abnormal positioning of Fetus B. This is consistent with patient's report of Danette PARKER's ultrasound reading yesterday. Patient aware of these findings and abnormal gestational sac. Patient has follow-up with Danette PARKER in the next 2 weeks. Advised she will need to follow-up with them for further management of and/or termination if that is the route she decides. Recommended to continue Tylenol, hydration, heating pad for cramping. Given return precautions. Patient is in agreement with plan. Discharged in stable condition. Medical Records Attestation: I reviewed the patient's medical records. Lab Data Attestation: I reviewed the patient's lab results. 11/05/24 08:54 11/05/24 08:54 Labs: Lab Results 11/05/24 11/05/24 Range/Units 08:54 10:42 WBC 5.4 (4.5-10.0) K/mm3 RBC 4.32 (4.2-5.4) M/mm3 Hgb 11.2 L (12.0-15.0) g/dL Hct 33.6 L (37.0-47.0) % MCV 77.8 L (80-100) fl MCH 25.9 L (26-34) pg MCHC 33.3 (32-36) g/dl RDW 15.6 H (11.5-14.5) % Plt Count 218 (150-375) k/mm3 MPV 11.4 H (7.4-10.4) fl Immature Gran % (Auto) 0.4 (0-0.5) % Neut % (Auto) 57.5 (45.5-73.1) % Lymph % (Auto) 31.5 (18.3-44.2) % Pacific % (Auto) 8.3 (2.6-8.5) % Eos % (Auto) 1.7 (0-4.4) % Baso % (Auto) 0.6 (0.2-1.2) % Lymph # (Auto) 1.70 (0.9-3.2) K/mm3 Pacific # (Auto) 0.5 (0.1-0.6) K/mm3 Eos # (Auto) 0.1 (0-0.3) K/mm3 Baso # (Auto) 0.0 (0.0-0.1) K/mm3 Abs Immat Gran (auto) 0.02 (0.00-0.031) K/mm3 Absolute Neuts (auto) 3.1 (1.3-6.7) K/mm3 Absolute Nucleated RBC 0.000 (0.0-0.012) K/mm3 Nucleated RBC % 0.0 (0.0-0.2) % PT 14.2 (11.1-14.7) Seconds INR 1.1 APTT 26.8 (22.3-36.8) Seconds Sodium 137 (137-145) mmol/L Potassium 3.8 (3.4-5.0) mmol/L Chloride 109 H (98-107) mmol/L Carbon Dioxide 17 L (22-30) mmol/L Anion Gap 11 (4-12) mmol/L BUN 8 (7-17) mg/dL Creatinine 0.39 L (0.7-1.0) mg/dL Estim Creat Clear Calc 159 ml/min Estimated GFR > 60 (59 - ) Glucose 74 (65-110) mg/dL Calcium 9.1 (8.4-10.2) mg/dL Total Bilirubin 0.5 (0.2-1.3) mg/dL AST 22 (14-36) U/L ALT 15 (6-35) U/L Alkaline Phosphatase 47 (38-126) U/L Total Protein 7.0 (6.3-8.2) g/dL Albumin 3.7 (3.5-5.1) g/dL Beta HCG, Quant 732419.00 mIU/ML Urine Color Yellow (Yellow) Urine Appearance Clear (Clear) Urine pH 6.0 (5.0-9.0) Ur Specific Gervais 1.027 (1.001-1.035) Urine Protein Trace (Negative) mg/dL Urine Glucose (UA) Negative (Negative) mg/dL Urine Ketones 1+ H (Negative) mg/dL Ur Blood (Man) Negative (Negative) Urine Nitrate Negative (Negative) Urine Bilirubin Negative (Negative) Urine Urobilinogen 0.2 (<2.0) mg/dL Add Ur Microanalysis Reviewed Leukocyte Esterase Rfl Negative (Negative) YUAN/UL Urine RBC 0-2 (0-2) /hpf Urine WBC 0-5 (0-3) /hpf Ur Squamous Epith Cells Occasional (Few) /hpf Urine Bacteria None seen /hpf Urine Casts 0-2 Urine Mucus Present /lpf Blood Type A Positive Antibody Screen Negative Screen Not Reportable Baby's Blood Type Not Reportable Baby's DAVID Not Reportable Doses of RhIg Required 0 Imaging Data Attestation: I personally reviewed and interpreted this imaging study as follows: Radiologist's impression: ITS Impressions Ultrasound 11/05/24 10:11 IMPRESSION: 1. Monochorionic, diamnionic with 2 living fetuses. There is an irregular configuration to the gestational sac with bilobed appearance and shelf like extension of the gestational sac which results in a narrow isthmus the 2 lobes of the sac. Fetus B is currently positioned with the neck at the isthmus with the head in the smaller lobe and the remainder of the body and extremities positioned within the larger lobe along with the second fetus A. For reference the width of the isthmus measures approximately 1.0 cm relative to the diameter of the head of fetus B which measures approximately 2.3 cm. 2. crown-rump length measurements for both fetuses are concordant with the previously estimated gestational age by ultrasound of 12 weeks 2 day(s) chest upon the earlier ultrasound performed on 10/12/2024 which yielded an ultrasound estimated date of delivery (BERNADINE) of 05/18/2025. Please correlate with clinical information or earlier ultrasounds for most accurate BERNADINE. Ultrasound 11/05/24 10:11 IMPRESSION: 1. Monochorionic, diamnionic with 2 living fetuses. There is an irregular configuration to the gestational sac with bilobed appearance and shelf like extension of the gestational sac which results in a narrow isthmus the 2 lobes of the sac. Fetus B is currently positioned with the neck at the isthmus with the head in the smaller lobe and the remainder of the body and extremities positioned within the larger lobe along with the second fetus A. For reference the width of the isthmus measures approximately 1.0 cm relative to the diameter of the head of fetus B which measures approximately 2.3 cm. 2. crown-rump length measurements for both fetuses are concordant with the previously estimated gestational age by ultrasound of 12 weeks 2 day(s) chest upon the earlier ultrasound performed on 10/12/2024 which yielded an ultrasound estimated date of delivery (BERNADINE) of 05/18/2025. Please correlate with clinical information or earlier ultrasounds for most accurate BERNADINE. Discharge Plan Discharge Clinical Impression: 11 weeks gestation of , Abnormal ultrasound Twin gestation in first trimester Qualifiers: Multiple gestation type: monochorionic and diamniotic Qualified Code(s): O30.031 - Twin , monochorionic/diamniotic, first trimester Patient Disposition: Home, Self-Care Condition: Stable Instructions: Antibiotic Form, at 11 to 14 Weeks (ED) Additional Instructions: Continue to follow-up with Maternal Medicine for further management of twin . You may continue Tylenol as needed for pain. This is safe in . Stay well hydrated. You may also use a heating pad on your abdomen. Return to ED if you experience worsening or severe pain, unable to keep down food or drink, difficulty breathing, vaginal bleeding, or any other symptoms of concern. Patient Language: [place] Citizen Prescriptions: No Action polymyxin B sulf-trimethoprim 10,000 unit- 1 mg/mL drops 1 drp LEFT EYE Q3H 7 Days Qty: 10 0RF Rx Instructions: while awake; do not exceed 6 doses in 24 hours erythromycin 5 mg/gram (0.5 %) ointment 0.5 inch EACH EYE TID 5 Days Qty: 50 0RF metoclopramide HCl [Reglan] 10 mg tablet 10 mg PO Q6H PRN (Reason: nausea and vomiting) Qty: 20 0RF Follow-up/Referrals: Dontrell Rizo MD [Physician] - (OBGYN) UNKNOWN,DOCTOR [Primary Care Provider] - Time of Disposition: 11:13
[2024-11-05] MEDS: ACETAMINOPHEN 500 MG TABLET 1000 MG PO (10:27)
[2024-11-05] MEDS: ONDANSETRON HCL ODT 4 MG TABLET PO (10:28)
[2024-11-05 10:35] VITALS: BP 126/80; PULSE 88; RESP 16; TEMP 36.6; O2SAT 100
--- OUTSIDE RECORDS SUMMARY | 2024-11-05 10:49 | XMS_ITS | Encounter Summary ---
Author Organization [facility] Address [address] [place] [address] Care Team Providers Care Lease Purchase Driver Name Role Phone Unavailable Primary Care Provider Unavailabl e Reason for Visit * Reason Comments Ultrasound * Eval and Treat (Routine) - Closed Specialty Diagnoses / Procedures Referred By Contac t Referred To Contact Perinatology Diagnoses Abnormal ultrasonic finding on screening of mother Dichorionic diamniotic twin in first trimester Procedures ID OFFICE/OUTPATIENT ESTABLISHED MOD MDM 30 MIN ID OFFICE/OUTPATIENT NEW MODERATE MDM 45 MINUTES Dontrell Rizo MD [address] [place] [address] Phone: tel: fax: [facility]aternal and [facility] [address] [place] [address] Phone: tel: fax: Referral ID Status Reason Start Date Expiration Date Visits Re quested Visits Authorized [id number] Closed 10/30/2024 10/30/2025 1 1 Encounter Details Date Type Department Care Team (Latest Contact Info) Description 11/04/2024 3:00 PM NITRATE OPERATOR Initial [facility] Maternal and Medicine [place] [address] [place] [address] Nicci Patrick MD [address] [facility] [address] [place] [address] Twin gestation, unable to determine number of placenta and number of amniotic sacs in first trimester (Primary Dx); Abnormal ultrasound Social History Tobacco Use Types Packs/Day Years Used Date Smoking Tobacco: Never Smokeless Tobacco: Never Alcohol Use Standard Drinks/Week Comments Never 0 (1 standard drink = 0.6 oz pur e alcohol) Adolescent Education Answer Date Record ed Getting School Help Needed Not on file 04/05 Estimated Date of Delivery Comme nts Yes 05/22/2025 Based on Other B asis Sex and Gender Information Value Date Recorded Sex Assigned at Not on file Legal Sex Female 10:32 PM CDT Gender Identity Not on file Sexual Orientation Not on file documented as of this encounter Last Filed Vital Signs Vital Sign Reading Time Taken Comments Blood Pressure 123/71 11/04/2024 3:35 PM NITRATE OPERATOR Pul se: 88 Pulse - - Temperature - - Respiratory Rate - - Oxygen Saturation - - Inhaled Oxygen Concentration - - Weight 51.7 kg (114 lb) 11/04/2024 3:35 PM NITRATE OPERATOR Height 162.6 cm (5' 4 ) 11/04/2024 3:35 PM NITRATE OPERATOR Body Mass Index 19.57 11/04/2024 3:35 PM NITRATE OPERATOR documented in this encounter Progress Notes * Nicci Patrick MD - 11/05/2024 8:11 AM CST Tess Cortes [id number] 19 y.o. [facility] Consultation Finding: Twin gestation, thick band of tissue within the uterus Consult requested by: Dr. Rizo HPI: Tess Cortes is a 19 y.o. at 11w5d who underwent ultrasound at the [facility]. The patient was referred for a triplet gestation that had reduced down to a twin gestation, and a possible uterine anomaly involving entrapment of twin B. OB History Para Term AB Living 1 SAB IAB Ectopic Multiple Live Births # Outcome Date GA Lbr Cameron/2nd Weight Sex Type Anes PTL Lv 1 Current Physical Exam BP 123/71 Comment: Pulse: 88 Ht 5' 4 (1.626 m) Wt 51.7 kg (114 lb) LMP 08/05/2024 BMI 19.57 kg/m?? General: appearance: alert, in no distress Abdomen: non-distended. Gravid The remainder of the exam was deferred due to the focused nature of the visit. Imaging No results found for this or any previous visit. Counseling: Twin gestation, uncertain chronicity, with a thick band within the uterus that twin B appears to beentangled within. -Regarding the band of tissue, it is of uncertain etiology at this time (amniotic band, uterine synechiae, minor form of limb body stock anomaly, abnormal placentation). We discussed that the openingfor which twin B is partially through may grow with the gestation, allowing twin B to grow. Or it ma y stay the same size leading to amputation of whatever structure is below the band. At this time the pelvis and legs are below the band. This could also lead to . We reviewed that we will likely only be able to determine the diagnosis over time. -We discussed the importance of determining chorionicity. We reviewed that in a monochorionic gestation loss of 1 twin can lead to neurodevelopmental diagnoses and the surviving twin. We discussed the option for NIPT today. This may help us determine chorionicity. If the NIPT returns Di-Di then this would be a dichorionic . This becomes a little more difficult to interpret monozygosity regarding if this is a Di Di or mono Di gestation. Tess reports she was told she could not have an NIPT due to the loss of one of the triplets, however I believe that the thick band of tissue made thegestation appear as though it was triplet even though it was not and it is reasonable to attempt NIP T at this time. -We discussed that mitch may be a candidate for selective reduction. We discussed that this not can be under taken until at least 16 weeks of gestation, and is only available at [facility] in [place] at this time. I have recommended she goes over for a second opinion and discussion regarding her options. We have also discussed the option for termination of . Impression: 19 y.o. at 11w5d with complicated by twin gestation with band of tissue restricting movement of twin B.. Plan: -NIPT drawn today to evaluate zygosity -Referral to [facility] for second opinion, and discussion of options of selective reduction. - Follow up ultrasound in 2 weeks - testing TBD - The patient will be enrolled in care team as gestation advances - All routine care and delivery with Dr. Rizo - Delivery planning: TBD - M will continue to provide consultative assistance for this condition through the [facility]. Thank you for the opportunity to participate in the care of this patient. Complexity of medical decision making: Moderate due to with the additional complications mentioned above. On the day of the visit, I spent 60 (1 hr) minutes providing care to this patient including Preparing to see the patient, Counseling and educating the patient/family/caregiver, and Documenting clinical information in the medical record. Nicci Patrick MD [facility] Maternal Medicine ATE OPERATOR ATE OPERATOR ATE OPERATOR documented in this encounter Plan of Treatment Upcoming Encounters Date Type Department Care Team (Late st Contact Info) Description 11/18/2024 8:00 AM CDT Appointment [facility] [address] [facility] [address] [place] [phone] Nicci Patrick MD [address] [facility] [address] [place] [address] 11/18/2024 9:30 AM CDT visit [facility] and Medicine [address] [place] [address] Scheduled Referrals Name Type Priority Associated Diagnoses Order Schedule AMB REFERRAL TO PERINATOLOGY Outpatient Referral Routine Abnormal ultrasonic finding on screening of mother Dichorionic diamniotic twin in first trimester Ordered: 10/30/2024 documented as of this encounter Visit Diagnoses Diagnosis Twin gestation, unable to determine number of placenta and number of amniotic sacs in first trimester- Primary Abnormal ultrasound Abnormal findings on screening documented in this encounter
--- OUTSIDE RECORDS SUMMARY | 2024-11-05 10:50 | XMS_ITS | Encounter Summary ---
Author Organization [facility] Address [address] [place] [address] Care Team Providers Care Optomechanical Technician Name Role Phone Unavailable Primary Care Provider Unavailabl e Reason for Referral * Radiology Services (Routine) - Pending Review Specialty Diagnoses / Procedures Referred By Contac t Referred To Contact Diagnoses Abnormal ultrasonic finding on screening of mother Encounter to determine viability of , single or unspecified fetus Dichorionic diamniotic twin in first trimester Procedures US OB LESS THAN 14 WKS Dontrell Nixon MD [address] [place] [address] Phone: tel: fax: [facility] Maternal [facility] Ground Floor [address] [place] [address] Phone: tel: fax: Referral ID Status Reason Start Date Expiration Date V isits Requested Visits Authorized [id number] Pending Review 10/30/2024 11/30/2025 1 1 ESS MANAGER Reason for Visit * Radiology Services (Routine) - Pending Review Specialty Diagnoses / Procedures Referred By Contac t Referred To Contact Diagnoses Abnormal ultrasonic finding on screening of mother Encounter to determine viability of , single or unspecified fetus Dichorionic diamniotic twin in first trimester Procedures US OB LESS THAN 14 WKS Dontrell Nixon MD [address] [place] [address] Phone: tel: fax: [employer] Maternal and Ground Floor [address] [place] [address] [place] [address] Phone: tel: fax: Referral ID Status Reason Start Date Expiration Date V isits Requested Visits Authorized [id number] Pending Review 10/30/2024 11/30/2025 1 1 Encounter Details Date Type Department Care Team (Late st Contact Info) Description 11/04/2024 2:14 PM PROCESS MANAGER - 11/04/2024 11:59 PM PROCESS MANAGER Hospital Encounter [facility] Maternal and Ground Floor S [facility] [address] [place] [address] Dontrell Rizo MD [address] [place] [address] Arrived Discharge Disposition: Home or Self Care Social History Tobacco Use Types Packs/Day Years [...] on file documented as of this encounter Plan of Treatment Upcoming Encounters Date Type Department Care Team (Late st Contact Info) Description 11/18/2024 8:00 AM CDT Appointment [facility] Maternal and Ground Floor S [facility] [address] [place] [address] Nicci Patrick MD [address] [facility] [address] [place] [address] 11/18/2024 9:30 AM CDT visit [facility] Maternal and Medicine [place] [address] [facility] [address] [place] [address] documented as of this encounter Procedures Procedure Name Priority Date/Time Associated Diagnosis Comments US OB LESS THAN 14 WKS SINGLE GEST Routine 11/04/2024 3:38 PM PROCESS MANAGER Abnormal ultrasonic finding on screening of mother Encounter to determine viability of , single or unspecified fetus Dichorionic diamniotic twin in first trimester documented in this encounter Results * US OB LESS THAN 14 WKS SINGLE GEST (11/04/2024 3:38 PM PROCESS MANAGER) Anatomical Region Laterality Modality Pelvis Ultrasound 11/04/2024 2:19 PM PROCESS MANAGER Narrative 11/05/2024 8:37 AM PROCESS MANAGER STL 1ST TRIMESTER >10 ----- Pat. Name: TESS HARRIS Study Date: 11/04/2024 2:19pm Pat. NO: [id number] Referring MD: Site: [facility] Business Services Specialist Sales: Joyce Enriquez RDMS, RVT : 2005 Age: 19 ----- INDICATION ----- Twins (Chorionicity Unspecified/Undetermined) Abnormal Finding on Previous Ultrasound CODING ----- Diagnoses Z3A.11: Weeks of gestation O30.091: Twin , unable to determine number of placenta and number of amniotic sacs O28.3: Abnormal ultrasonic finding on screening of mother Procedures 88904: Ultrasound, uterus, real time with image documentation, and maternal evaluation, first trimester (< 14 weeks 0 days), transabdominal approach; single or first gestation 27278: Ultrasound, uterus, real time with image documentation, and maternal evaluation, first trimester (< 14 weeks 0 days), transabdominal approach; each additional gestation 59882: Ultrasound, uterus, real time with image documentation METHOD ----- Transabdominal and transvaginal ultrasound examination ----- Twin . Number of fetuses: 2 DATING ----- Method of dating: based on stated BERNADINE GA by prior assessment 11 w + 4 d BERNADINE by prior assessment: 05/22/2025 Ultrasound examination on: 11/04/2024 GA by U/S based upon: CRL GA by U/S 12 w + 1 d BERNADINE by U/S: 05/18/2025 GA by U/S based upon (Fetus 2): CRL GA by U/S (Fetus 2) 12 w + 2 d BERNADINE by U/S (Fetus 2): 05/17/2025 Assigned: based on stated BERNADINE, selected on 11/04/2024 Assigned GA 11 w + 4 d Assigned BERNADINE: 05/22/2025 Fetus 1: BIOMETRY ----- FHR 142 bpm CRL 55.3 mm 12w 1d [place] Fetus 2: BIOMETRY ----- FHR 155 bpm CRL 57.6 mm 12w 2d [place] Fetus 1: ANATOMY ----- GI tract: Fluid filled stomach identified. Urogenital tract: Fluid filled bladder identified. The following structures appear normal: Cranium. Neck. Abdominal wall. Arms. Legs. Fetus 2: ANATOMY ----- The following structures appear normal: Cranium. Neck. Arms. The following structures could not be adequately visualized: Thorax. GI tract. Urogenital tract. Legs. Fetus 1: GENERAL EVALUATION ----- Cardiac activity present Amniotic fluid: normal amount Fetus 2: GENERAL EVALUATION ----- Cardiac activity present Amniotic fluid: subjectively low MATERNAL STRUCTURES ----- Uterus Long 181 mm x ap 81 mm x tr 102 mm. Vol 784.8 cm Right Ovary Suboptimal Left Ovary Suboptimal COMMENT ----- Patient's name and date of were confirmed by the orthopedics nurse prior to the exam. Dr. Patrick was present for the transvaginal ultrasound and served as a crutch maker. IMPRESSION ----- Twin gestation at 11w 4d, based on stated BERNADINE, selected on 11/04/2024 with thin membrane. [place] rump length is 55.3 mm (12w 1d) for fetus A and 57.6 mm (12w 2d) for fetus B. Amniotic fluid volume is within normal limits for each twins. A thick band of tissue is seen traversing the uterus with fetus A and the hips/legs of twin B on one side, and the torso/arms/heads of fetus B above the band of tissue. Movement is seen from twin B's lower extremities, the legs remained crossed. No major anomaly is identified for either twin. Recommendation: See MFM consultation. F/u ultrasound scheduled in 2 weeks. Thank you for inviting us to participate in your patient's care. Procedure Note Nicci Patrick MD - 11/05/2024 STL 1ST TRIMESTER >10 ----- Pat. Name:Briseyda HARRIS Date:11/04/2024 2:19pm Pat. NO: [id number] MD: [facility]:Joyce Enriquez RDMS, RVT :2005Age:19 ----- INDICATION ----- Twins (Chorionicity Unspecified/Undetermined) Abnormal Finding on Previous Ultrasound CODING ----- Diagnoses Z3A.11: Weeks of gestation O30.091: Twin , unable to determinenumber of placenta and number of amniotic sacs O28.3: Abnormal ultrasonic finding on antenatalscreening of mother Procedures 60792: Ultrasound, uterus, real time withimage documentation, and maternal evaluation, first trimester (< 14 weeks 0 days),transabdominal approach; single or first gestation 47348: Ultrasound, uterus, real time withimage documentation, and maternal evaluation, first trimester (< 14 weeks 0 days),transabdominal approach; each additional gestation 20299: Ultrasound, uterus, real time withimage documentation METHOD ----- Transabdominal and transvaginal ultrasound examination ----- Twin . Number of fetuses: 2 DATING ----- Method of dating:based on stated BERNADINE GA by prior [id number] w + 4 d BERNADINE by prior assessment:05/22/2025 Ultrasound examination on:11/04/2024 GA by U/S based upon:CRL GA by U/S12 w + 1 d BERNADINE by U/S:05/18/2025 GA by U/S based upon (Fetus 2):CRL GA by U/S (Fetus 2)12 w + 2 d BERNADINE by U/S (Fetus 2):05/17/2025 Assigned:based on stated BERNADINE, selected on 11/04/2024 Assigned GA11 w + 4 d Assigned BERNADINE:05/22/2025 Fetus 1: BIOMETRY ----- FHR 142 bpm CRL 55.3 mm 12w 1d[place]lock Fetus 2: BIOMETRY ----- FHR 155 bpm CRL 57.6 mm 12w 2dHadlock Fetus 1: ANATOMY ----- GI tract: Fluid filled stomach identified. Urogenital tract: Fluid filledbladder identified. The following structures appear normal: Cranium. Neck. Abdominal wall. Arms. Legs. Fetus 2: ANATOMY ----- The following structures appear normal: Cranium. Neck. Arms. The following structures could not be adequately visualized: Thorax. GI tract. Urogenital tract. Legs. Fetus 1: GENERAL EVALUATION ----- Cardiac activity present Amniotic fluid: normal amount Fetus 2: GENERAL EVALUATION ----- Cardiac activity present Amniotic fluid: subjectively low MATERNAL STRUCTURES ----- Uterus Long 181 mm x ap 81 mm x tr 102 mm. Vol 784.8cm Right Ovary Suboptimal Left Ovary Suboptimal COMMENT ----- Patient's name and date of were confirmed by the orthopedics nurse priorto the exam. Dr. Patrick was present for the transvaginal ultrasound and served as achaperone. IMPRESSION ----- Twin gestation at 11w 4d, based on stated BERNADINE, selected on 11/04/2024 withthin membrane. [place] rump length is 55.3 mm (12w 1d) for fetus A and 57.6 mm (12w 2d) forfetus B. Amniotic fluid volume is within normal limits for each twins. A thick band of tissue is seen traversing the uterus with fetus A and thehips/legs of twin B on one side, and the torso/arms/heads of fetus B above the band of tissue. Movement is seen from twin B's lower extremities, the legs remainedcrossed. No major anomaly is identified for either twin. Recommendation: See MFM consultation. F/u ultrasound scheduled in 2 weeks. Thank you for inviting us to participate in your patient's care. us Dontrell Rizo MD ORDERABLES Final Result documented in this encounter Visit Diagnoses Diagnosis Abnormal ultrasonic finding on screening of mother Abnormal findings on screening Encounter to determine viability of , single or unspecified fetus Dichorionic diamniotic twin in first trimester Twin , antepartum documented in this encounter
--- OUTSIDE RECORDS SUMMARY | 2024-11-05 10:50 | XMS_ITS | Encounter Summary ---
Author Organization [facility] Address [address] [place] [address] Care Team Providers Care Online Advertising Director Name Role Phone Unavailable Primary Care Provider Unavailabl e Reason for Visit * Reason Onset Date Comments Advice Only 11/05/2024 Encounter Details Date Type Department Care Team (Late st Contact Info) Description 11/05/2024 Telephone [facility] Genetic Counseling [address] [facility] [address] [place] [address] Farshad Dougherty, CGC [address] [facility] [address] [place] [address] Advice Only Social History Tobacco Use Types Packs/Day Years [...] on file documented as of this encounter Miscellaneous Notes * Telephone Encounter - Farshad Dougherty CGC - 11/05/2024 10:25 AM ELECTRONIC INDUSTRIAL CONTROLS MECHANIC I met briefly with Tess Cortes in the Center to assist with NIPT screening. We discussed screening options designed to detect pregnancies with an increased chance for certain typesof defects without posing a risk for miscarriage. A screening test does not determine for certain that the baby has a syndrome or not. Discussed cell-free DNA screening (cfDNA). This screening involves a blood sample from a woman. A woman's blood contains her DNA as well as the DNA from the . This screen evaluates the chances for Trisomies 21, 31, 18 and sexchromosome abnormalities such as Zavaleta syndrome. cfDNA is a screening option, so not diagnostic. If the screen should indicate that a baby has an increase risk to have a chromosome condition, amniocentesis is recommended to confirm the results. The Lab requisition from was reviewed and signed and a blood sample was collected by a Center nurse. Results are expected in about 6-8 days andwe will call with the results. My contact information was provided to the patient and she was encouraged to call with any further questions or concerns TRONIC INDUSTRIAL CONTROLS MECHANIC documented in this encounter Plan of Treatment Upcoming Encounters Date Type Department Care Team (Late st Contact Info) Description 11/18/2024 8:00 AM CDT Appointment [facility] Maternal and [facility] Floor [id number] [place] [address] Nicci Patrick MD [address] [facility] [address] [place] [address] 11/18/2024 9:30 AM CDT visit [facility] Maternal and Medicine [address] [place] [address] documented as of this encounter Visit Diagnoses Not on filedocumented in this encounter
--- OUTSIDE RECORDS SUMMARY | 2024-11-05 10:50 | XMS_ITS | Data Portability ---
Author Organization [facility] [place] Address [address] [place] [address] [place] [address] Assessment Encounter Date Assessment Date Assessment LastModified by Organization Details LastModified Time 10/14/2024 10/14/2024 vanishing twin reviewed office precautions, education start PNV Not available 10/14/2024 17:02:05 Plan of Treatment Reminders Order Date Submit Date Provider Last Modified By Organization Details Last Modified Time Details Appointments OB ROUTINE 2024 09:30A Kristen BAKER MD Not available Not available Not available Lab CT + NG + TV, RNA, unspecifi ed specimen 2024 025 [facility] (Lab), [address], [place], [address], 10/16/2024 01:44:11 Referral None recorded. Procedures None recorded. Surgeries None recorded. Imaging US, obstetric , nuchal transluce ncy 2024 025 emily [place], [address], [place], [address], 11/03/2024 17:33:08 US, obstetric , nuchal transluce ncy, additiona l gestation 2024 025 emily [place], [address], [place], [address], 11/03/2024 17:33:08 US, obstetric , 1st trimester 2024 025 emily [place], [address], [place], [address], 10/27/2024 23:00:35 US, obstetric , transvagi nal 2024 025 [email or web address] [place], [address], [place], [address], 10/14/2024 21:43:51 Medication Orders Vitamin 28 mg iron-800 mcg tablet 2024 025 [id number], [address], [place], [place], [id number], 10/14/2024 17:03:26 Patient TargetsNo targets recorded. Patient InstructionsNo instructions recorded. Reason for Referral None Reported. Results Created Date Observation Date Name Description Value Unit Range Abnormal Flag Note LastModifiedBy Organization Detail LastModifiedTime 10/14/1910/14/2024 CT/GC AND TRICH OMONA S VAGIN KADE (RRNA ), URINE chlamydia trachomatis, PCR Negati ve negati ve Not Available [facility] (Lab) [address], [place], [address], 10/16/2024 01:44:10 10/14/19 25 10/14/2024 CT/GC AND TRICH OMONA S VAGIN KADE (RRNA ), URINE neisseria gonorrhoeae, PCR Negati ve negati ve Not Available [facility] (Lab) [address], [place], [address], 10/16/2024 01:44:10 10/14/19 25 10/14/2024 CT/GC AND TRICH OMONA S VAGIN KADE (RRNA ), URINE trichomonas vaginalis ribosomal RNA (rrna) Negati ve negati ve Not Available [facility] (Lab) [address], [place], [address], 10/16/2024 01:44:10 10/27/19 25 10/27/2024 CBC W/DIF F WBC 6.1 10'3/ uL 3.5-10 .5 Not Available [facility] (Lab) [address], [place], [address], 10/28/2024 19:11:32 10/27/19 25 10/27/2024 CBC W/DIF F RBC 4.77 10'6/ uL (based on docume nted legal sex) 3.80-5 .20 Not Available [facility] (Lab) [address], [place], [address], 10/28/2024 19:11:32 10/27/19 25 10/27/2024 CBC W/DIF F HGB 12.2 g/dL (based on docume nted legal sex) 11.6-1 5.4 Not Available [facility] (Lab) [address], [place], [address], 10/28/2024 19:11:32 10/27/19 25 10/27/2024 CBC W/DIF F HCT 38.1 % (based on docume nted legal sex) 34.0-4 5.0 Not Available [facility] (Lab) [address], [place], [address], 10/28/2024 19:11:32 10/27/19 25 10/27/2024 CBC W/DIF F MCV 79.9 fL 80.0-9 9.0 low Not Available [facility] (Lab) [address], [place], [address], 10/28/2024 19:11:32 10/27/19 25 10/27/2024 CBC W/DIF F MCH 25.6 pg 27.0-3 4.0 low Not Available [facility] (Lab) [address] [place], [address], 10/28/2024 19:11:32 10/27/19 25 10/27/2024 CBC W/DIF F MCHC 32.0 g/dL 32.0-3 5.5 Not Available [facility] (Lab) [address], [place], [address], 10/28/2024 19:11:32 10/27/19 25 10/27/2024 CBC W/DIF F RDW 16.0 % 11.0-1 5.0 high Not Available [facility] (Lab) [address], [place], [address], 10/28/2024 19:11:32 10/27/19 25 10/27/2024 CBC W/DIF F plt 282 10'3/ uL 150-40 0 Not Available [facility] (Lab) [address], [place], [address], 10/28/2024 19:11:32 10/27/19 25 10/27/2024 CBC W/DIF F MPV 12.6 fL 8.8-12 .1 high Not Available [facility] (Lab) [address], [place], [address], 10/28/2024 19:11:32 10/27/19 25 10/27/2024 CBC W/DIF F neutrophils 63.1 % 34.0-7 3.0 Not Available [facility] (Lab) [address], [place], [address], 10/28/2024 19:11:32 10/27/19 25 10/27/2024 CBC W/DIF F lymphocytes 27.3 % 15.0-5 0.0 Not Available [facility] (Lab) [address], [place], [address], 10/28/2024 19:11:32 10/27/19 25 10/27/2024 CBC W/DIF F monocytes 6.6 % 1.0-15 .0 Not Available [facility] (Lab) [address], [place], [address], 10/28/2024 19:11:32 10/27/19 25 10/27/2024 CBC W/DIF F eosinophils 2.3 % 0.0-8. 0 Not Available [facility] (Lab) [address], [place], [address], 10/28/2024 19:11:32 10/27/19 25 10/27/2024 CBC W/DIF F basophils 0.5 % 0.0-2. 0 Not Available [facility] (Lab) [address], [place], [address], 10/28/2024 19:11:32 10/27/19 25 10/27/2024 CBC W/DIF F immature granulocytes 0.2 % no define d refere nce range Immat ure Granu locyt es (IG) repre sents autom ated enume ratio n of Metam yeloc ytes, Myelo cytes and Promy elocy christian when IG is < 5%. Blast s are not inclu ded in IG and repor ramiro separ ately if prese nt. Not Available [facility] (Lab) [address], [place], [address], 10/28/2024 19:11:32 10/27/19 25 10/27/2024 CBC W/DIF F absolute neutrophils 3.8 10'3/ uL 1.5-8. 0 Not Available [facility] (Lab) [address], [place], [address], 10/28/2024 19:11:32 10/27/19 25 10/27/2024 CBC W/DIF F absolute lymphocytes 1.7 10'3/ uL 1.0-4. 0 Not Available [facility] (Lab) [address], [place], [address], 10/28/2024 19:11:32 10/27/19 25 10/27/2024 CBC W/DIF F absolute monocytes 0.4 10'3/ uL 0.2-1. 0 Not Available [facility] (Lab) [address], [place], [address], 10/28/2024 19:11:32 10/27/19 25 10/27/2024 CBC W/DIF F absolute eosinophils 0.1 10'3/ uL 0.0-0. 6 Not Available [facility] (Lab) [address], [place], [address], 10/28/2024 19:11:32 10/27/19 25 10/27/2024 CBC W/DIF F absolute basophils 0.0 10'3/ uL 0.0-0. 3 Not Available [facility] (Lab) [address], [place], [address], 10/28/2024 19:11:32 10/27/19 25 10/27/2024 CBC W/DIF F absolute immature granulocytes 0.0 10'3/ uL 0.00-0 .10 Refer ence range s for nonbi nary/ inter sex or unspe cifie d gende r patie nts have not been estab lishe d. Pleas e refer to the andrewo wing table for range s estab lishe d for cisge nder patie nts and evalu ate in the clini aki miriam xt of the indiv idual patie nt: https :[email or web address] eagle book. nm.or g/gen derx Not Available [facility] (Lab) [address], [place], [address], 10/28/2024 19:11:32 10/27/1910/27/2024 HEMOG LOBIN A1C hemoglobin A1C 4.9 % 4.0-5. 6 The Ameri can Diabe christian [employer]oc iatio n recom mends that a prima ry goal of thera py shoul d be a HBA1C of < 7% and that physi cians shoul d reeva luate the treat ment regim en in patie nts with HBA1C value s consi stent ly > 8%. <5.7% Anastasia l 5.7 - 6.4% Incre ased risk for diabe christian >=6.5 % Diagn ostic of diabe christian <7.0% Goal of thera py >8.0% Actio n sugge sted Not Available [facility] (Lab) [address], [place], [address], 10/28/2024 19:11:32 10/27/19 25 10/27/2024 TYPE/ RH/SC REEN ABO/Rh type A POS Not Available [facility] (Lab) [address], [place], [address], 10/28/2024 19:11:32 10/27/19 25 10/27/2024 TYPE/ RH/SC REEN antibody screen NEG Not Available [facility] (Lab) [address], [place], [address], 10/28/2024 19:11:32 10/27/19 25 10/27/2024 TYPE/ RH/SC REEN exp date 2024 23:59 Not Available [facility] (Lab) [address], [place], [address], 10/28/2024 19:11:32 10/27/19 25 10/27/2024 HEPAT ITIS B SURFA CE ANTIG EN hepatitis B surface antigen Non-re active non-re active This assay was perfo rmed using [employer] ratio n reage nts and test kits. Value s obtai justo with other assay metho ds or kits canno t be used inter cruz eably . Not Available [facility] (Lab) [address], [place], [address], 10/28/2024 19:11:32 10/27/1910/27/2024 HIV 1/2 ANTIG EN/AN TIBOD Y, REFLE X CONFI RMATI ON HIV antigen/anti body Nonrea ctive nonrea ctive HIV-1 antig en and HIV-1 /HIV- 2 antib odies were not detec ramior. No labor atory evide nce of HIV infec tion. Not Available [facility] (Lab) [address], [place], [address], 10/28/2024 19:11:33 10/27/19 25 10/27/2024 HEPAT ITIS C ANTIB JAKOB SCREE N, REFLE X TO CONFI RMATI ON hepatitis C antibody Non-re active non-re active Antib odies to HCV Not Detec ramiro, does not exclu de the possi bilit y of expos ure to HCV. Not Available [facility] (Lab) [address], [place], [address], 10/28/2024 19:11:33 10/27/19 25 10/27/2024 RUBEL LA IGG ANTIB JAKOB, QUANT rubella antibodies, IgG Reacti ve reacti ve Not Available [facility] (Lab) [address], [place], [address], 10/28/2024 19:11:33 10/27/19 25 10/27/2024 RUBEL LA IGG ANTIB JAKOB, QUANT rubella antibodies, IgG quant 43.5 IU/mL >=10 Non-r eacti ve (Non- Immun e) <10 IU/mL React nicolas (Immu ne) > or = 10 IU/mL Not Available [facility] (Lab) [address], [place], [address], 10/28/2024 19:11:33 10/27/19 25 10/27/2024 RPR SCREE N, REFLE X TITER /CONF IRMAT ION RPR qualitative Nonrea ctive nonrea ctive Not Available [facility] (Lab) [address], [place], [address], 10/28/2024 19:11:34 11/04/19 25 11/03/2024 drug scree n, urine Amphetamines : negati ve Not Available [place] [address], [place], [address], 11/03/2024 17:44:48 11/04/19 25 11/03/2024 drug scree n, urine Cannabinoids : positi ve Not Available [place] [address], [place], [address], 11/03/2024 17:44:48 11/04/19 25 11/03/2024 drug scree n, urine Cocaine: negati ve Not Available [place] [address], [place], [address], 11/03/2024 17:44:48 11/04/19 25 11/03/2024 drug scree n, urine Opiates: negati ve Not Available [place] [address], [place], [address], 11/03/2024 17:44:48 11/04/19 25 11/03/2024 drug scree n, urine Phenocyclidi ne: negati ve Not Available [place] [address], [place], [address], 11/03/2024 17:44:48 11/04/19 25 11/03/2024 drug scree n, urine Barbiturates : negati ve Not Available [place] [address], [place], [address], 11/03/2024 17:44:48 11/04/19 25 11/03/2024 drug scree n, urine Benzodiazepi louise: negati ve Not Available [place] [address], [place], [address], 11/03/2024 17:44:48 11/04/19 25 11/03/2024 drug scree n, urine Ethanol: negati ve Not Available [place] [address], [place], [address], 11/03/2024 17:44:48 11/04/19 25 11/03/2024 drug scree n, urine Hallucinogen s: negati ve Not Available [place] [address], [place], [address], 11/03/2024 17:44:48 11/04/19 25 11/03/2024 drug scree n, urine Inhalants: negati ve Not Available [place] [address], [place], [address], 11/03/2024 17:44:48 11/04/1911/03/2024 drug scree n, urine Anabolic Steroids: negati ve Not Available [place] [address], [place], [address], 11/03/2024 17:44:48 10/14/19 25 10/14/2024 US, obste tric, trans vagin al No observ ation record ed. [email or web address] [place] [address], [place], [address], 10/14/2024 17:42:55 10/14/19 25 10/14/2024 US, obste tric, trans vagin al No observ ation record ed. [email or web address] [address], [place], [address], 10/15/2024 13:26:39 10/27/19 25 10/27/2024 US, obste tric, 1st trime ster No observ ation record ed. [email or web address] [place] [address], [place], [address], 10/27/2024 13:48:35 10/27/19 25 10/27/2024 US, obste tric, 1st trime ster No observ ation record ed. [email or web address] [address], [place], [address], 10/29/2024 00:20:41 11/04/19 25 11/03/2024 US, obste tric, nucha l trans lucen cy No observ ation record ed. [email or web address] [place] [address], [place], [address], 11/03/2024 17:15:02 11/04/19 25 11/03/2024 US, obste tric, nucha l trans lucen cy, addit ional gesta tion No observ ation record ed. [email or web address] [place] [address], [place], [address], 11/03/2024 17:15:11 11/04/19 25 11/03/2024 US, obste tric, nucha l trans lucen cy No observ ation record ed. [email or web address] [address], [place], [address], 11/03/2024 17:48:26 Result Notes None recorded. Problems Name Problem SNOMED Code Status Onset Date Resolution Date Notes Provider Name and Address Organization Details Recorded Time 24113026 Active 025 Nicolasa finn, [facility] 17:02:16 Problem Notes None recorded. Procedures Surgical History Date Name Laterality Status Provider Name and Address Organization Details Recorded Time 09/04/19 25 Date of Last Pap Smear completed Jeanne Love [facility] 10/14/2024 15:43:28 11/01/19 23 termination of completed [facility] 12/31/2023 12:45:41 09/02/19 22 termination of completed [facility] 12/31/2023 12:45:37 Imaging Results Imaging Date Name Status LastModified by Organization Details LastModified Time 10/14/2024 US, obstetric, transvaginal completed [email or web address] [place] [address], [place], [address], 10/14/2024 17:42:55 10/14/2024 US, obstetric, transvaginal completed [email or web address] [address], [place], [address], 10/15/2024 13:26:39 10/27/2024 US, obstetric, 1st trimester completed [email or web address] [place] [address], [place], [address], 10/27/2024 13:48:35 10/27/2024 US, obstetric, 1st trimester completed [address] [facility], [place], [address], 10/29/2024 00:20:41 11/03/2024 US, obstetric, nuchal translucency completed [email or web address] [place] [address], [place], [address], 11/03/2024 17:15:02 11/03/2024 US, obstetric, nuchal translucency, additional gestation completed [email or web address] [place] [address], [place], [address], 11/03/2024 17:15:11 11/03/2024 US, obstetric, nuchal translucency active [email or web address] [address], [place], [address], 11/03/2024 17:48:26 Procedure Notes None recorded. Medical Equipment None [...] completed Not Available Not Available Not Available Depo-Terrazzo Layer Helper a 150 mg/mL intramuscul ar suspension Inject 1 mL every 3 months by intramusc ular route. 09/04 completed 12/17 Not Available Not Available Not Available cephalexin 500 mg capsule 12/30 completed Not Available Not Available Not Available polymyxin B sulfate 10,000 unit-trimet hoprim 1 mg/mL eye drops INSTILL 1 DROP IN LEFT EYE EVERY 3 HOURS WHILE AWAKE FOR 7 DAYS. DO NOT EXCEED 6 DOSES IN 24 HOURS 10/14 completed Not Available Not Available Not Available [...] completed Not Available Not Available Not Available Vitamin 28 mg iron-800 mcg tablet Take 1 tablet by oral route. 2024 active Not Available Not Available Not Avai lable Mayelin 0.25 mg-35 mcg tablet TAKE 1 TABLET BY MOUTH EVERY DAY 12/30 completed Not Available Not Available Not Available Zafemy 150 mcg-35 mcg/24 hr transdermal patch 09/04 completed Not Available Not Available Not Available Vitals Date Recorded Body height Body mass index (BMI) Body weight Systolic blood pressure Diastolic blood pressure Provider Name and Address Organization Details Last Updated DateTime 10/14/2024 162.56 cm 19.6 kg/m2 31886.53 g 113 mm[Hg] 69 mm[Hg] Jeanne Love [facility] 16:55:18 Date Recorded Body height Body mass index (BMI) Body weight Systolic blood pressure Diastolic blood pressure Provider Name and Address Organization Details Last Updated DateTime 11/03/2024 162.56 cm 19.9 kg/m2 05105.71 g 116 mm[Hg] 77 mm[Hg] Nicolasa Alanis [facility] 16:58:42 Social History Question Answer Notes LastModified by Organizat ion Details LastModified Time Tobacco Smoking Status Never Smoker Lisbet Montaño [email or web address], [facility] 12/31/2023 12:44:42 Do You Have An Advance Directive? No [email or web address] Information not available 09/04/2024 What Is Your Level Of Alcohol Consumption? None [email or web address] Information not available 10/14/2024 If You Are , What Was Your Level Of Alcohol Consumption Prior To ? Occasional [email or web address] Information not available 10/14/2024 How Many Years Have You Consumed Alcohol? 2 [email or web address] Information not available 10/14/2024 Are You Blind Or Do You Have Difficulty Seeing? No Information not available 12/31/2023 What Is Your Level Of Caffeine Consumption? None Information not available 12/31/2023 How Much Tobacco Do You Chew? None Information not available 09/04/2024 In The 14 Days Before Symptom Onset, Have You Had Close Contact With A Laboratory-confir med COVID-19 While That Case Was Ill? No Information not available 12/31/2023 In The 14 Days Before [...] Of Diet Are You Following? REGULAR Information not available 12/31/2023 Which Illicit Or Recreational Drugs Have You Used? Marijuana Information not available 12/31/2023 Do You Or Have You Ever Used E-cigarettes Or Vape? Former User Of Electronic Cigarettes [email or web address] Information not available 10/14/2024 What Is The Highest Grade Or Level Of School You Have Completed Or The Highest Degree You Have Received? 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 No Information not available 12/31/2023 Do You Use Protection During Sex? No Information not available 12/31/2023 Do You Use Your Seat Belt Or Car Seat Routinely? No Information not available 12/31/2023 Do You Have Smoke And Carbon Monoxide Detectors In Your Home? No [email or web address] Information not available 10/14/2024 How Much Tobacco Do You Smoke? No Information not available 12/31/2023 Do You Feel Stressed (tense, Restless, Nervous, Or Anxious, Or Unable To Sleep At Night)? [id number] Information not available 12/31/2023 Do You Use Any Illicit Or Recreational Drugs? No [email or web address] Information not available 10/14/2024 Do You Use Sunscreen Routinely? No Information not available 12/31/2023 Have You Used IV Drugs? No Information not available 12/31/2023 Do You Or Have You Ever Used Any Other Forms Of Tobacco Or Nicotine? Yes [email or web address] Information not available 10/14/2024 Sex: Unknown Functional Status Question Answer Note [...] available 03/19/2024 What is your exercise level? Occasional [email or web address] Information not available 10/14/2024 Mental Status None recorded. Family History Relationship Description Onset Age of this Age Resolved Age Notes LastModified by Organization Details LastModified Time Unspecified Relation Family history unknown [email or web address] Not available 10/03 15:28:13 Maternal Grandmother Malignant tumor of breast Not available 2023 12:44:25 Medical History Condition Response Other N Blood Transfusion N Dermatologic Disorders N Gestational Diabetes N Anxiety Disorder N Autoimmune disease N Arthritis N Polyps N Infertility N Acid Reflux (GERD) N Cancer N Varicosities N Stroke N Neurologic/Epilepsy N Fibromyalgia N Headaches N Kidney Disease N Heart Problems N Kidney or Bladder Problems N Eating Disorder N Art (IVF or FET) N Hepatitis/Liver Disease N No Past Medical History N Urinary Tract Infection N Asthma N Trauma/Violence N Thrombophilias N Allergies (Food, seasonal, environmental ) N Breast Cancer N Drug/Latex Allergies/Reactions N Lung Disease N Defects or Inherited Disease N Breast Problem N Hematologic disorders N Anesthesia Complications N History of STI N Deep Vein Thrombosis N Polycystic ovary syndrome N History of abnormal pap N Endometriosis N High Cholesterol N Thyroid Problems N GI Problems N Anemia N Psychiatric Illness N Ovarian Cancer N Diabetes N Pulmonary (TB, Asthma) N Eczema N Abuse/Domestic Violence N Depression/ depression N Heart Disease N Pre-Eclampsia N Hypertension N Osteoporosis N Gynecological History Statement/Question Response Date of Last Mammogram Date of LMP 08/15/2024 N On BCP's at Conception? N STIs/STDs Y Was last menstrual period normal Y HPV Vaccine N Duration of Flow (days) 5 Current Control Method Are cycles usually normal Y Date of Last Colonoscopy Frequency of Cycle (Q days) 28 Sexually Active? Y None Menses Monthly Y Date of DEXA bone scan Age of first menstrual cycle 9 Date of Last Pap Smear 09/04/2024 Sexual Problems? N LMP Approximate Desired Control Method None N Obstetrics History GPAL:G 3 P 0 0 2 0 Type Value Induced 2 Living 0 Total 3 Past Encounters Encounter ID Performer Location Encounter Start Date Encounter Closed Date Diagnosis/Indication Diagnosis SNOMED-CT Code Diagnosis ICD10 Code Diagnosis Note [id number] Mary Leal , [facility] [address] [address] 12/31/2023 12:32:02 12/31/2023 13:48:13 Urinary symptoms 452423668 R39.9 Today I agreed to send abx for treatment and send testing (std, urine, vag screening) .Agreeable to plan of care. Counseled on medication R/B's, Most common side effects, & use. All questions were answered to patient satisfacti on. Health Hx was reviewed and updated as reported in chart.Doxy sentSTD sent+nitra christian on urine dip Time spent in visit is a total of 30 mins with at least 50% of visit consisting of counseling and review of plan of care. Vaginitis 12344766 N76.0 Dysuria 96703486 R30.0 Urine cx sent [id number] DANETTE Silva [place] [address],[place] [address] 03/19/2024 16:57:40 03/19/2024 17:34:50 Contraception care management 736218311 Z30.9 Discussed all control options in great [...] verbalized understand ing. Venereal d isease screening 979184570 Z11.3 Sexually t ransmitted infectious disease 4975866 A64 patient collected vaginitis and STI panel sentHIV/He p B&C/Syphil is testing ordered per pt requestsaf e sexual practices discussedv ulvar care bradford discussed Time spent in visit is a total of 30 mins with at least 50% of visit consisting of counseling and review of plan of care. [id number] DANETTE Silva [place] [address],[place] [address] 09/04/2024 12:10:23 09/04/2024 14:01:43 Gynecologic examination 92783350 Z01.419 WWEBC - declinedPa p - done [...] than 25 dietary consult advised. Questions answered. [id number] [facility] [address],[place] [address] 10/14/2024 15:27:59 10/14/2024 16:50:49 Dichorionic diamniotic twin 598494607 O30.049 Z3A.08 [id number] Rossy Baker [facility] [address],[place] [address] 10/14/2024 15:28:37 10/14/2024 17:11:18 Venereal disease screening 017987031 Z11.3 Twin 49715551 O30.009 Dichorioni c diamniotic twin 047060124 O30.049 test positive 919414822 Z32.01 [id number] [facility] [address],[place] [address] 10/27/2024 10:49:11 10/27/2024 13:57:04 Threatened miscarriage 32855558 O20.0 O30.041 Z3A.10 [id number] [facility] [address],[place] [address] 11/03/2024 15:57:08 11/03/2024 17:11:20 screening 736136761 Z36.82 Z3A.11 [id number] XUAN Malik [place] [address],[place] [address] 11/03/2024 15:59:44 11/04/2024 10:22:08 Routine care 014276859 Z34.91 Health Concerns Section Related Observation LastModified by Organization Detai ls LastModified Time None Recorded Concern Status LastModified by Organization Details LastModified Time None Recorded Advance Directives Directive N: Payers Encounter Date Sequence Insurance Name Policy Number Policy Eli Covered Member ID Eli Member ID Guarantor Name 10/14/2024 1 [facility] - DOS ON OR AFTER 21 (MEDICAID REPLACEMENT - HMO) Tess Cortes [id number] Tessliset Cortes 10/14/2024 1 [facility] - DOS ON OR AFTER 21 (MEDICAID REPLACEMENT - HMO) Tess Cortes [id number] Tess Sebastian 10/27/2024 1 [place] DEPARTMENT OF PUBLIC AID Tessliset Cortes [id number] Tess Cortes 11/03/2024 1 [facility] - DOS ON OR AFTER 21 (MEDICAID REPLACEMENT - HMO) Tess Cortes [id number] Tessliset Cortes Notes Date Note Type Note Provider Name and Address Organization Details Recorded Time 10/14/2024 text/html amenorrhea +UPT in september, went to ED Saturday for vaginal bleeding and not feeling well. was told was triplet , but one with a vanishing twintoday on di/di twinsnot currently taking any medications, bleeding has stoppedFOB involved, excited Rossy Baker CNM [address], [place], [address], [facility] 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 11/04/19 1 116 OPEN Fetus Data First Name Last Name Admitted to NICU Weight (g) Sex Living Outcome Pediatric Complications Fetus ID Race Codes Race Delivery Type [id number] Brandan Calculation Initial Brandan Date Initial Exam Date Initial Exam Provider Initial Ultrasound Date Last Menstrual Period Date Ultra Sound Weeks Gestation 11/03/2024 10/14/2024 08/15/2024 9 Eighteen To Twenty Week Brandan Update Ultra Sound Date Fundal Height At Umbil Quickening Date Ultra Sound Latest Weeks Gestation Final Brandan Confirmed By Final Brandan Confirmed Date Final Brandan Date Ultra Sound Latest Days Gestation 0 0 Pre-richard Flowsheet Flowsheet Date 11/03/2024 Mera Score Blood Edema Fundus Height Fundus Units Glucose Ketones Leukocytes Nitrite Labor Signs Protein Cervic Dilation Cervic Effacement Cervic Station Type Weight in lbs Pre/Post Dialysis Refused BP Diastolic BP Location Tested BP Systolic BP Type Fetus Heart Rate Present Fetus Movement Comments Flowsheet Date 11/03/2024 Mera Score Blood Edema Fundus Height Fundus Units Glucose Ketones Leukocytes Nitrite Labor Signs Protein Cervic Dilation Cervic Effacement Cervic Station Type Weight in lbs Pre/Post Dialysis Refused Weight 116.012581718286 BP Diastolic BP Location Tested BP Systolic BP Type 77 L arm 116 sitting Fetus Heart Rate Present Fetus Movement Comments Menstrual History Last Menstrual Date Menses Monthly On Bcp Conception Prior Menses Frequency Hcg Plus Date Menarche Onset Age 1208/15/2024 Delivery Information Delivery Date Delivery Type Labor Anesthesia Weeks Gestation Incision Type Labor Labor Length Hrs Delivered By Post Complications Tubal Sterilization Discharge Date Comments Discharge Information Feeding Method Contraceptive Method Maternal HG B and HCT Levels Ob Episode Information Episode Created Date Number of Fetuses Patient Bloodtype Patient rh Status Prepregnancy Weight lbs Domestic Partner Domestic Partner Phone Father Name Mechanical Apprentice Status 12/31/19 24 1 CLOSED Fetus Data First Name Last Name Admitted to NICU Weight (g) Sex Living Outcome Pediatric Complications Fetus ID Race Codes Race Delivery Type , Induced [id number] Brandan Calculation Initial Brandan Date Initial Exam [...] Post Complications Tubal Sterilization Discharge Date Comments Discharge Information Feeding Method Contraceptive Method Maternal HG B and HCT Levels Ob Episode Information Episode Created Date Number of Fetuses Patient Bloodtype Patient rh Status Prepregnancy Weight lbs Domestic Partner Domestic Partner Phone Father Name Mechanical Apprentice Status 12/31/19 24 1 CLOSED Fetus Data First Name Last Name Admitted to NICU Weight (g) Sex Living Outcome Pediatric Complications Fetus ID Race Codes Race Delivery Type , Induced [id number] Brandan Calculation Initial Brandan Date Initial Exam [...]
--- OUTSIDE RECORDS SUMMARY | 2024-11-05 10:50 | XMS_ITS | Encounter Summary ---
Author Organization [facility] Address [address] [place] [address] Care Team Providers Care Ed Case Manager Name Role Phone Unavailable Primary Care Provider Unavailabl e Encounter Details Date Type Department Care Team (Late st Contact Info) Description 11/04/2024 4:30 PM ROUTING MACHINE OPERATOR Hospital Encounter [facility] Counseling [address] [place] [address] Farshad Dougherty, CGC [address] [place] [address] Arrived Social History Tobacco Use Types Packs/Day Years [...] Info) Description 11/18/2024 8:00 AM CDT Appointment [facility] and [facility] [address] [facility] [address] [place] [address] Nicci Patrick MD [address] [facility] [address] [place] [address] 11/18/2024 9:30 AM CDT visit [facility] Maternal and Medicine [place] [address] [facility] [address] [place] [address] documented as of this encounter Visit Diagnoses Not on filedocumented in this encounter
--- OUTSIDE RECORDS SUMMARY | 2024-11-05 10:50 | XMS_ITS | Clinical Summary ---
Author Organization [facility] Address [address] [place] [address] Phone Care Team Providers Care Evaporator Repairer Name Role Phone Unavailable Primary Care Provider Unavailabl e Allergies No known active allergies Medications No known medications Active Problems Problem Noted Date Diagnosed Date Twin gestation, unable to de termine number of placenta and number of amniotic sacs in first trimester 11/05/2024 Abnormal ultrasound 11/05/2024 Estimated Date of Delivery Comme nts Yes 05/22/2025 Based on Other B asis Encounters Date Type Department Care Team Description 11/05/2024 Telephone [facility] Genetic Counseling [address] [address] Farshad Dougherty CGC Advice Only 11/04/2024 4:30 PM UNEMPLOYMENT INSPECTOR Hospital Encounter [facility] Genetic Counseling [address] [address] Farshad Dougherty CGC Arrived 11/04/2024 3:00 PM UNEMPLOYMENT INSPECTOR Initial [facility] Maternal and Medicine [employer] [address] [facility] [address] [place] [address] Nicci Patrick MD Twin gestation, unable to determine number of placenta and number of amniotic sacs in first trimester (Primary Dx); Abnormal ultrasound 11/04/2024 2:14 PM UNEMPLOYMENT INSPECTOR - 11/04/2024 11:59 PM UNEMPLOYMENT INSPECTOR Hospital Encounter [facility] Maternal and Ground Floor [address] [place] [address] Dontrell Rizo MD Arrived Discharge Disposition: Home or Self Care 10/30/2024 Orders Only [facility] Maternal and Ground Floor [address] [place] [address] [place] [address] Dontrell Rizo MD Abnormal ultrasonic finding on screening of mother (Primary Dx); Dichorionic diamniotic twin in first trimester from Last 3 Months Social History Tobacco Use Types Packs/Day Years [...] Comments Blood Pressure 123/71 11/04/2024 3:35 PM UNEMPLOYMENT INSPECTOR Pul se: 88 Pulse 95 05/20/2021 10:33 PM CDT Temperature 36.9 C (98.4 F) 05/20/2021 11:25 PM CDT Respiratory Rate 16 05/20/2021 10:33 PM CDT Oxygen Saturation 98% 05/20/2021 10:33 PM CDT Inhaled Oxygen Concentration - - Weight 51.7 kg (114 lb) 11/04/2024 3:35 PM UNEMPLOYMENT INSPECTOR Height 162.6 cm (5' 4 ) 11/04/2024 3:35 PM UNEMPLOYMENT INSPECTOR Body Mass Index 19.57 11/04/2024 3:35 PM UNEMPLOYMENT INSPECTOR Plan of Treatment Upcoming Encounters Date Type Department Care Team (Late st Contact Info) Description 11/18/2024 8:00 AM CDT Appointment [facility] Maternal and Ground Floor [address] [place] [address] Nicci Patrick MD [address] [facility] [address] [place] [address] 11/18/2024 9:30 AM CDT visit [facility] Maternal and Medicine [place] [id number] [facility] [address] [place] [address] Health Maintenance Due Date Last Done Comments CHLAMYDIA SCREENING (ANNUAL) 11-24 YEARS 2014 HPV VACCINES (1 - 3-dose series) 2018 DTAP/TDAP/TD VACCINES (1 - Tdap) 2022 HEPATITIS B VACCINES (1 of 3 - 19+ 3-dose series) 04/03 INFLUENZA VACCINE (#1) 2024 Preventative Visit-Managed Medicaid 09/05/202509/04 CERVICAL CANCER SCREENING 09/04/2027 09/04/2024 RSV VACCINE (60+ or ) (No Doses Required) Comp leted Procedures Procedure Name Priority Date/Time Associated Diagnosis Comments US OB LESS THAN 14 WKS SINGLE GEST Routine 11/04/2024 3:38 PM UNEMPLOYMENT INSPECTOR Abnormal ultrasonic finding on screening of mother Encounter to determine viability of , single or unspecified fetus Dichorionic diamniotic twin in first trimester from Last 3 Months Results * US OB LESS THAN 14 WKS SINGLE GEST (11/04/2024 3:38 PM UNEMPLOYMENT INSPECTOR) Anatomical Region Laterality Modality Pelvis Ultrasound 11/04/2024 2:19 PM UNEMPLOYMENT INSPECTOR Narrative 11/05/2024 8:37 AM UNEMPLOYMENT INSPECTOR STL 1ST TRIMESTER >10 ----- Pat. Name: TESS HARRIS Study Date: 11/04/2024 2:19pm Pat. NO: [id number] Referring MD: Site: [facility] Plodder Operator: Joyce Enriquez RDMS, RVT : 2005 Age: 19 ----- INDICATION ----- Twins (Chorionicity Unspecified/Undetermined) Abnormal Finding on Previous Ultrasound CODING ----- Diagnoses Z3A.11: Weeks of gestation O30.091: Twin , unable to determine number of placenta and number of amniotic sacs O28.3: Abnormal ultrasonic finding on screening of mother Procedures 42797: Ultrasound, uterus, real time with image documentation, and maternal evaluation, first trimester (< 14 weeks 0 days), transabdominal approach; single or first gestation 41713: Ultrasound, uterus, real time with image documentation, and maternal evaluation, first trimester (< 14 weeks 0 days), transabdominal approach; each additional gestation 66728: Ultrasound, uterus, real time with image documentation [...] and date of were confirmed by the technical writing lead/mgr prior to the exam. Dr. Patrick was present for the transvaginal ultrasound and served as a basket bottom machine operator. IMPRESSION ----- Twin gestation at 11w 4d, based on stated BERNADINE, selected on 11/04/2024 with thin membrane. Bowman rump length is 55.3 mm (12w 1d) [...] Pat. Name:Briseyda HARRIS Date:11/04/2024 2:19pm Pat. NO: [id number] MD: [facility]Joyce Enriquez RDMS, RVT :2005Age:19 ----- INDICATION ----- Twins (Chorionicity Unspecified/Undetermined) Abnormal Finding on Previous Ultrasound CODING ----- Diagnoses Z3A.11: Weeks of gestation O30.091: Twin , unable to determinenumber of placenta and number of amniotic sacs O28.3: Abnormal ultrasonic finding on antenatalscreening of mother Procedures 34543: Ultrasound, uterus, real time withimage documentation, and maternal evaluation, first trimester (< 14 weeks 0 days),transabdominal approach; single or first gestation 64557: Ultrasound, uterus, real time withimage documentation, and maternal evaluation, first trimester (< 14 weeks 0 days),transabdominal approach; each additional gestation 16739: Ultrasound, uterus, real time withimage documentation METHOD ----- Transabdominal and transvaginal ultrasound examination ----- Twin . Number of fetuses: 2 DATING ----- Method of dating:based on stated BERNADINE GA by prior [id number] w + 4 d BERNADINE by prior [...] and date of were confirmed by the technical writing lead/mgr priorto the exam. Dr. Patrick was present for the transvaginal ultrasound and served as achaperone. IMPRESSION ----- Twin gestation at 11w 4d, based on stated BERNADINE, selected on 11/04/2024 withthin membrane. Bowman rump length is 55.3 mm (12w 1d) [...] your patient's care. us Dontrell Rizo MD US ORDERABLES Final Result from Last 3 Months Insurance MEDICAID [place]
--- OUTSIDE RECORDS SUMMARY | 2024-11-05 10:50 | XMS_ITS | Clinical Summary ---
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 [employer] Gender Identity Not on file Sexual Orientation [...] Meningococcal B Vaccine (1 of 2 - Standard) 2019 Regular Well Visit/Exam 18-64 2021 DTaP/Tdap/Td Vaccine (6 - Td or Tdap) 03/30/2024 03/30/2014, 03/26/2005, 02/10/2004, Additional history exists Influenza Vaccine (#1) 2024 06/03/2014, 2011 Pneumococcal vaccine <65 Aged Out 2003, 10/31 No longer eligible based on patient's age to complete this topic Hepatitis B Screening Completed 02/10/2004 , 2003, 2003 Varicella Vaccines Completed 03/30/2014, 03/26/2005 Meningococcal Vaccine Aged Out 06/03/2014 No chuck dominik eligible based on patient's age to complete this topic Insurance [facility] Care Teams Graphic Art Technician Relationship Specialty Start Date End Date No, Physician PCP - General 11/05/24 Nicci Patrick MD [address] [facility] [address] [place] [address] Referring Physician Obstetrics and Gynecology 11/05/24
--- OUTSIDE RECORDS SUMMARY | 2024-11-05 10:50 | XMS_ITS | Referral Summary ---
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
[2024-11-05 10:56] LABS: Add Urine Microscopic? YES; Appearance Urine Clear (Clear); Bacteria Urine None Seen /hpf; Bilirubin Urine Negative (Negative); Blood Urine Negative (Negative); Color Urine Yellow (Yellow); Glucose Urine UA Negative (Negative); Ketones Urine 1+ mg/dL (Negative); Leukocyte Esterase Ur Negative LEU/UL (Negative); Mucus Urine Present /lpf; Need Manual Microscopic Reviewed; Nitrate Urine Negative (Negative); Non Pathogenic Casts 0-2; Protein Urine Trace mg/dL (Negative); RBC Urine 0-2 /hpf (0-2); Specific Grav Ur 1.027 (1.001-1.035); Squamous Epithelial Cell Urine Occasional /hpf (Few); Urobilinogen Urine 0.2 mg/dL (<2.0); WBC Urine 0-5 /hpf (0-3)
[2024-11-05 11:28] VITALS: BP 127/76; PULSE 72; RESP 16; O2SAT 100
== END 2024-11-05 11:29 | disposition home or self-care (01) ==
PROVIDERS: Emergency Medicine; Emergency Provider Physician Assistant
DX: O35.8XX0 Maternal care for other (suspected) fetal abnormality and damage, not applicable or unspecified (principal); O30.031 Twin pregnancy, monochorionic/diamniotic, first trimester; Z3A.11 11 weeks gestation of pregnancy
CPT/HCPCS: 36415; 76801; 76802; 80053; 81001; 84702; 85025; 85461; 85610; 85730; 86850; 86900; 86901; 99284; A9270

== ENCOUNTER 2025-01-04 08:03 | Emergency (ER) | payer OTHER, SELFPAY ==
--- OUTSIDE RECORDS SUMMARY | 2025-01-04 08:08 | XMS_ITS | Clinical Summary ---
Author Organization [facility] Address [address] [place] [address] Phone Care Team Providers Care Tank Carpenter Name Role Phone Unavailable Primary Care Provider [...] Encounters Date Type Department Care Team Description 12/10/2024 Telephone [facility] Maternal and Medicine [place] [id number] [place] [address] Desiree Bosch RN Care Team 12/08/2024 Telephone [facility] Maternal and Ground Floor [address] [facility] [address] [place] [address] Ania De Jesus RN Question 11/25/2024 Telephone [facility] Genetic Counseling [address] [place] [address] Farshad Dougherty, CGC Results 11/18/2024 9:30 AM CDT visit [facility] Maternal and Medicine [place] [address] [place] [address] Sebastian Fletcher MD Twin gestation, unable to determine number of placenta and number of amniotic sacs in first trimester (Primary Dx); Abnormal ultrasound 11/18/2024 8:11 AM CDT - 11/18/2024 11:59 PM CDT Hospital Encounter [facility] Genetic Counseling [address] [place] [address] Nicci Patrick MD Pavalko, Porter E, CGC Discharge Disposition: Home or Self Care 11/18/2024 8:00 AM CDT - 11/18/2024 11:59 PM CDT Hospital Encounter [facility] Maternal and Ground Floor [address] [facility] [address] [place] [address] Nicci Patrick MD Discharge Disposition: Home or Self Care 11/18/2024 Telephone [facility] Genetic Counseling [address] [place] [phone] Farshad Dougherty, CGC Advice Only 11/13/2024 Telephone [facility] Genetic Counseling [address] [place] [phone] Farshad Dougherty, CGC Advice Only; Results 11/12/2024 Abstract [facility] Maternal and Medicine - Medical [place] [address] [place] [address] Abby Quiñonez 11/11/2024 External Device Data [facility] ABSTRACTION Provider, Abstract 11/10/2024 External Device Data [facility] [place] Provider, Abstract 11/09/2024 External Device Data [facility] Provider, Abstract 11/07/2024 External Device Data [facility] AB[facility] Provider, Abstract 11/06/2024 External Device Data [facility] ABSTRACTION Provider, Abstract 11/05/2024 Telephone [facility] Genetic Counseling [address] [address] Farshad Dougherty, CGC Advice Only 11/04/2024 4:30 PM CUSTOMER SUPPORT COORDINATOR - 11/04/2024 11:59 PM CUSTOMER SUPPORT COORDINATOR Hospital Encounter [facility] Genetic Counseling [address] [address] Farshad Dougherty, CGC Discharge Disposition: Home or Self Care 11/04/2024 3:00 PM CUSTOMER SUPPORT COORDINATOR Initial [facility] Maternal and Medicine [place] [address] [place] [phone] Nicci Patrick MD Twin gestation, unable to determine number of placenta and number of amniotic sacs in first trimester (Primary Dx); Abnormal ultrasound 11/04/2024 2:14 PM CUSTOMER SUPPORT COORDINATOR - 11/04/2024 11:59 PM CUSTOMER SUPPORT COORDINATOR Hospital Encounter [facility] Ground [facility] [place] [address] [place] [address] Susanne Baker MD Discharge Disposition: Home or Self Care 10/30/2024 Orders Only [facility] Ground [facility] [place] [address] [place] [address] Susanne Baker MD Abnormal ultrasonic finding on screening of [...] Sign Reading Time Taken Comments Blood Pressure 119/63 11/18/2024 9:22 AM CDT Pul se: 95 Pulse 95 05/20/2021 10:33 PM CDT Temperature 36.9 C (98.4 F) 05/20/2021 11:25 PM CDT Respiratory Rate 16 05/20/2021 10:33 PM CDT Oxygen Saturation 98% 05/20/2021 10:33 PM CDT Inhaled Oxygen Concentration - - Weight 52.6 kg (116 lb) 11/18/2024 9:22 AM CDT Height 162.6 cm (5' 4 ) 11/18/2024 9:22 AM CDT Body Mass Index 19.91 11/18/2024 9:22 AM CDT Plan of Treatment Health Maintenance Due Date Last Done Comments CHLAMYDIA SCREENING (ANNUAL) 11-24 YEARS 2014 HPV VACCINES (1 - 3-dose series) 2018 DTAP/TDAP/TD VACCINES (1 - Tdap) 2022 HEPATITIS B VACCINES (1 of 3 - 19+ 3-dose series) 04/03 INFLUENZA VACCINE (#1) 2024 HPV/Cotest (21-29) 2024 CERVICAL CANCER SCREENING 09/04/2027 PAP SMEAR 09/04/2027 09/04/2024 RSV VACCINE (60+ or ) (No Doses Required) Comp leted Procedures Procedure Name Priority Date/Time Associated Diagnosis Comments US OB LESS THAN 14 WKS SINGLE GEST Routine 11/18/2024 9:19 AM CDT Abnormal ultrasonic finding on screening of mother US OB LESS THAN 14 WKS SINGLE GEST Routine 11/04/2024 3:38 PM CUSTOMER SUPPORT COORDINATOR Abnormal ultrasonic finding on screening of mother Encounter to determine viability of , single or unspecified fetus Dichorionic diamniotic twin in first trimester from Last 3 Months Results * US OB LESS THAN 14 WKS SINGLE GEST (11/18/2024 9:19 AM CDT) Only the most recent of2 resultswithin the time period is included. Anatomical Region Laterality Modality Pelvis Ultrasound 11/18/2024 8:13 AM CDT Narrative 11/18/2024 10:19 AM CDT STL 1ST TRIMESTER >10 ----- Pat. Name: TESS HARRIS Study Date: 11/18/2024 8:13am Pat. NO: [id number] Referring MD: SUSANNE BAKER MD Site: [facility] Account Executive Sales Representative: Shanta Oro RDMS : 2005 Age: 19 ----- INDICATION ----- Twin , Monochorionic/Diamniotic (Petroleum/Di) Abnormal Finding on Previous Ultrasound CODING ----- Diagnoses Z3A.13: Weeks of gestation O30.091: Twin , unable to determine number of placenta and number of amniotic sacs O28.3: Abnormal ultrasonic finding on screening of mother Procedures [id number]: Ultrasound, uterus, real time with image documentation, and maternal evaluation, first trimester (< 14 weeks 0 days), transabdominal approach; single or first gestation 41300: Ultrasound, uterus, real time with image documentation [id number]: Ultrasound, uterus, real time with image documentation, and maternal evaluation, first trimester (< 14 weeks 0 days), transabdominal approach; each additional gestation METHOD ----- Transabdominal and transvaginal ultrasound examination ----- Twin . Number of fetuses: 2. Monochorionic-monoamniotic DATING ----- GA by prior assessment 13 w + 4 d BERNADINE by prior assessment: 05/22/2025 Method of dating: Restore dating from previous exam Assigned: based on stated BERNADINE, selected on 11/04/2024 Assigned GA 13 w + 4 d Assigned BERNADINE: 05/22/2025 Fetus 1: ANATOMY ----- The following structures appear normal: Cranium: suboptimal brain . Neck. Abdominal wall. Stomach. Kidneys. Bladder. Arms. Legs: clubbing of the left foot, right foot suboptimal . Fetus 2: ANATOMY ----- The following structures appear normal: Cranium. Neck. Abdominal wall. Stomach. Kidneys. Bladder. Arms. Legs. Fetus 1: GENERAL EVALUATION ----- Cardiac activity present Placenta: anterior Cord vessels: 3 vessel cord Amniotic fluid: normal amount Fetus 2: GENERAL EVALUATION ----- Cardiac activity present Placenta: anterior Cord vessels: 3 vessel cord Amniotic fluid: normal amount MATERNAL STRUCTURES ----- Right Ovary Suboptimal Left Ovary Suboptimal COMMENT ----- Patient's name and date of were confirmed by the final inspector paper prior to the exam. Bekah Erazo was present for the transvaginal ultrasound and served as a composition molder. IMPRESSION ----- Follow-up ultrasound and care consult scheduled to address abnormal ultrasound findings. Patient had NIPT drawn 2 weeks ago. No results were obtained from the NIPT. Please note: The entrapped twin is now labeled as twin A. Previously this was labeled as twin B. Today's ultrasound is consistent with monochorionic/diamniotic twin . There is a single anterior placenta. There is a thin intervening membrane. There is a uterine synechiae in the anterior fundal region of the uterine cavity. Placenta is partially implanted on the uterine synechiae. Twin A head is entrapped in a relatively smaller space created by the uterine synechiae. The synechiae does not appear to be connected to the fetus. The opening in the synechiae is at the level of the neck. Umbilical cord also passes through this opening. The placental cord insertion is marginal and is located on a portion of the placenta within the small space created by the synechiae where the head is. 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 Please see separate consult note. We address potential problems that are typically associated with monochorionic/diamniotic twin including twin to twin transfusion syndrome, selective growth restriction due to unequal placental share and structural abnormalities. We also addressed that the head of twin A is entrapped in a small space created by a uterine synechiae or sheet. This could cause developmental abnormalities due to compression of the developing head, or due to restriction of blood flow through neck vessels or umbilical cord. Given the uniqueness of the situation, it is not possible to quantify the risk. We also discussed that when a placenta is partially implanted on the synechia, there is an increased risk of premature rupture of membranes, abruption and . We also discussed the presence of clubfoot affecting twin A. Clubfoot is typically an isolated finding associated with a good prognosis. However, clubfoot can be found in association with chromosomal or genetic syndromes which can impact prognosis. We addressed that the initial NIPT did not provide any results. If twin A is affected by genetic or chromosomal abnormality, twin B would also be affected even though there are no ultrasound findings. Limitations of NIPT was discussed. The option of genetic amniocentesis was discussed. Patient was previously counseled regarding these findings at [facility] care center. Options of total termination or selective termination of twin A was offered. Given the confirmation of findings today, patient is likely to proceed with selective termination of twin A. I spoke with Dr. Cross at [facility]. Staff from their center will reach out to the patient to schedule procedure after 16 weeks gestation. Patient did express a desire to follow-up with an ultrasound here at 20 weeks. We scheduled a detailed anatomic survey at 20 weeks gestation. I informed the patient that because she has [place] Medicaid, she will not be able to deliver at [facility]. Procedure Note Sebastian Fletcher MD - 11/18/2024 STL 1ST TRIMESTER >10 ----- Pat. Name:Briseyda HARRIS Date:11/18/2024 8:13am Pat. NO: [id number] MD:SUSANNE BAKER [facility]Sh[facility] RDMS :2005Age:19 ----- INDICATION ----- Twin , Monochorionic/Diamniotic (Petroleum/Di) Abnormal Finding on Previous Ultrasound CODING ----- Diagnoses Z3A.13: Weeks of gestation O30.091: Twin , unable to determinenumber of placenta and number of amniotic sacs O28.3: Abnormal ultrasonic finding on antenatalscreening of mother Procedures [id number]: Ultrasound, uterus, real time withimage documentation, and maternal evaluation, first trimester (< 14 weeks 0 days),transabdominal approach; single or first gestation 49915: Ultrasound, uterus, real time withimage documentation [id number]: Ultrasound, uterus, real time withimage documentation, and maternal evaluation, first trimester (< 14 weeks 0 days),transabdominal approach; each additional gestation METHOD ----- Transabdominal and transvaginal ultrasound examination ----- Twin . Number of fetuses: 2. Monochorionic-monoamniotic DATING ----- GA by prior [id number] w + 4 d BERNADINE by prior assessment:05/22/2025 Method of dating:Restore dating from previous exam Assigned:based on stated BERNADINE, selected on 11/04/2024 Assigned GA13 w + 4 d Assigned BERNADINE:05/22/2025 Fetus 1: ANATOMY ----- The following structures appear normal: Cranium: suboptimal brain . Neck. Abdominal wall. Stomach. Kidneys.Bladder. Arms. Legs: clubbing of the left foot, right foot suboptimal . Fetus 2: ANATOMY ----- The following structures appear normal: Cranium. Neck. Abdominal wall. Stomach. Kidneys. Bladder. Arms. Legs. Fetus 1: GENERAL EVALUATION ----- Cardiac activity present Placenta: anterior Cord vessels: 3 vessel cord Amniotic fluid: normal amount Fetus 2: GENERAL EVALUATION ----- Cardiac activity present Placenta: anterior Cord vessels: 3 vessel cord Amniotic fluid: normal amount MATERNAL STRUCTURES ----- Right Ovary Suboptimal Left Ovary Suboptimal COMMENT ----- Patient's name and date of were confirmed by the final inspector paper priorto the exam. Bekah Erazo was present for the transvaginal ultrasound and served as achaperone. IMPRESSION ----- Follow-up ultrasound and care consult scheduled to address abnormalultrasound findings. Patient had NIPT drawn 2 weeks ago. No results were obtained from the NIPT. Please note: The entrapped twin is now labeled as twin A. Previously thiswas labeled as twin B. Today's ultrasound is consistent with monochorionic/diamniotic twinpregnancy. There is a single anterior placenta. There is a thin intervening membrane. There is a uterine synechiae in the anteriorfundal region of the uterine cavity. Placenta is partially implanted on the uterine synechiae. Twin A head is entrapped in a relatively smaller space created by theuterine synechiae. The synechiae does not appear to be connected to the fetus. The opening in the synechiae is at the level ofthe neck. Umbilical cord also passes through this opening. The placental cord insertion is marginal and is located on aportion of the placenta within the small space created by the synechiae where the head is. 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 Please see separateconsult note. We address potential problems that are typically associated with monochorionic/diamniotic twin pregnancyincluding twin to twin transfusion syndrome, selective growth restriction due to unequal placental share and structuralabnormalities. We also addressed that the head of twin A is entrapped in a small space created by a uterine synechiae or sheet. Thiscould cause developmental abnormalities due to compression of the developing head, or due to restriction of blood flowthrough neck vessels or umbilical cord. Given the uniqueness of the situation, it is not possible to quantify the risk. Wealso discussed that when a placenta is partially implanted on the synechia, there is an increased risk of premature ruptureof membranes, abruption and . We also discussed the presence of clubfoot affecting twin A. Clubfoot istypically an isolated finding associated with a good prognosis. However, clubfoot can be found in association with chromosomalor genetic syndromes which can impact prognosis. We addressed that the initial NIPT did not provide any results. If twin A isaffected by genetic or chromosomal abnormality, twin B would also be affected even though there are no ultrasound findings.Limitations of NIPT was discussed. The option of genetic amniocentesis was discussed. Patient was previously counseled regarding these findings at [facility]. Options of total termination or selective termination of twin A was offered. Given theconfirmation of findings today, patient is likely to proceed with selective termination of twin A. [facility] Staff [facility] their [facility] will reach out to the patient to schedule procedure after 16 weeks gestation. Patient did express a desire to follow-up with an ultrasound here at 20weeks. We scheduled a detailed anatomic survey at 20 weeks gestation. I [place] the [place] not be able to deliver at [facility]. us Nicci Patrick MD ORDERABLES Final Resul t from Last 3 Months Insurance [facility] MEDICAID
--- OUTSIDE RECORDS SUMMARY | 2025-01-04 08:08 | XMS_ITS | Referral Summary ---
Author Organization [place] [id number] [facility] Address [address] [place] [address] Care Team Providers Care [employer] Field Technician Name Role Phone No, Physician Primary Care Provider [phone] Nicci Patrick MD Unavailable Dontrell Rizo MD Unavailable [phone] Encounters Date Type Department Care Team Description 12/22/2024 11:00 AM CDT Office Visit [facility] Maternal- Medicine [address] [facility] 7th [address] [place] [address] Club foot, , affecting care of mother, antepartum, fetus 1 (Primary Dx); Monochorionic diamniotic twin in second trimester; Supervision of high-risk , second trimester; Uterine synechiae 12/22/2024 9:57 AM CDT - 12/22/2024 11:59 PM CDT Hospital Encounter [facility] - Ultrasound [address] [facility], 7th Floor, [address] [facility] [place] [address] Monochorionic diamniotic twin in second trimester; Uterine synechiae Discharge Disposition: Discharge to home or self care 12/10/2024 3:30 PM CDT Office Visit [facility] Obstetrics and Gynecology [facility] 7th [address] [place] [address] Uterine synechiae (Primary Dx); Club foot, , affecting care of mother, antepartum, fetus 1; Monochorionic diamniotic twin in second trimester; Supervision of high-risk , second trimester 12/10/2024 2:00 PM CDT - 12/10/2024 11:59 PM CDT Hospital Encounter [facility] - Ultrasound [facility], 7th Floor, [address] [place] [address] Monochorionic diamniotic twin gestation in second trimester; abnormality affecting management of mother, antepartum, single or unspecified fetus; Uterine synechiae Discharge Disposition: Discharge to home or self care 12/03/2024 Telephone [facility] Maternal- Medicine [address] [place] [address] 7th Floor [address] [place] [address] Emy Horn RN Ultrasound report 11/19/2024 Orders Only [facility] Obstetrics and Gynecology [address] [place] [address] 7th Floor [address] [place] [address] Rossy Pinedo, FELIZ Supervision of high-risk , second trimester (Primary Dx) 11/12/2024 1:30 PM CDT Office Visit [facility] Obstetrics and Gynecology [address] [place] [address] 7th Floor [address] [place] [address] Monochorionic diamniotic twin gestation in second trimester (Primary Dx); Supervision of high-risk , second trimester; Uterine synechiae; Screening for depression [Z13.31] 11/12/2024 11:54 AM CDT - 11/12/2024 11:59 PM CDT Hospital Encounter [facility] - Ultrasound [address] [place] [address], 7th Floor, [address] [place] [address] Twin , antepartum, unspecified multiple gestation type Discharge Disposition: Discharge to home or self care from Last 3 Months Allergies Active Allergy Reactions Criticality Noted Date Comments Iodinated Contrast Media Shortness of breath High Medications ondansetron ODT (ZOFRAN-ODT) 4 mg disintegrating tablet Take 1 tablet (4 mg total) by mouth every 8 (eight) hours as needed for nausea or vomiting 20 tablet 12/11/19 Active Additional Information Patient not taking.Reported on 12/22/2024 albuterol HFA (PROVENTIL HFA,VENTOLIN HFA,PROAIR HFA) 90 mcg/actuation inhaler Inhale 2 puffs every 4 (four) hours as needed for wheezing 1 each 02/19/20 Active dicyclomine (BENTYL) 20 mg tablet Take 1 tablet (20 mg total) by mouth every 6 (six) hours as needed (abdominal cramps) 20 tablet 02/19/20 22 Active Additional Information Patient not taking.Reported on 12/22/2024 LORazepam (ATIVAN) 0.5 mg tabletIndications: Panic attack Take 1 tablet (0.5 mg total) by mouth every 6 (six) hours as needed for anxiety 10 tablet 10/13/19 Active Additional Information Patient not taking.Reported on 12/22/2024 ondansetron (ZOFRAN) 4 mg tablet Take 1 tablet (4 mg total) by mouth every 6 (six) hours 12 tablet 11/03/19 23 Active Additional Information Patient not taking.Reported on 12/22/2024 predniSONE (DELTASONE) 20 mg tablet Take 4 tablets (80 mg) by mouth daily 4 PO x QD x 3 days, Then 3 PO q 3 D, then 2 PO QD x 3 D, Then 1 PO QD x 3 D then 1/2 PO QD x 3 D then stop. 33 tablet 01/21/20 23 Active Additional Information Patient not taking.Reported on 12/22/2024 hydrocortisone (ANUSOL-HC) 2.5 % rectal cream Insert into the rectum 2 (two) times a day 30 g 05/26/20 24 Active aspirin 81 mg chewable tablet Take 1 tablet (81 mg total) by mouth daily 30 tablet 11 12/12/19 25 026 Active estradioL (ESTRACE) 2 mg tablet Take 0.5 tablets (1 mg total) by mouth daily 15 tablet 08/13/20 23 025 Discontin ued(Thera py completed ) Active Problems Problem Noted Date Diagnosed Date Urinary tract infection in m other during second trimester of 12/22/2024 Overview (12/22/2024): Currently on macrobid [] FELIPE Club foot, , affecting care of mother, antepartum, fetus 1 12/11/2024 Overview (12/22/2024): Previous US was concerning for clubfeet of twin 1 Repeat US normals [] Specialized anatomy- scheduled Uterine synechiae 11/15/2024 Overview (12/11/2024): She is aware that presence of a synechia does increase risk of PPROM. No therapy is recommended. 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 At first assessment, MCDA with twin 1 trapped in a uterine synechiae at level of neck. On repeat assessment both twins free of synechia. Previously counseled Plan: [x] ASA 81 mg at 12 weeks [] Consider baseline PIH labs - CBC, CMP, UPC [] TTTS/TAPS screening 16-36 weeks every 2 weeks- ongoing [] Specialized anatomy 20 weeks- scheduled [] echocardiogram 20-22 weeks- scheduled [] Serial growth ultrasounds every 4 weeks [] Weekly testing at 32 weeks [] Delivery by [id number] (prefer [id number]) Supervision of high-risk , second trime ster 11/09/2024 Overview (12/22/2024): [x] Full MFM Care- as of 12/22/2024 per pts request [x] Blue Team Referring Provider: Nicci Patrick [phone] Primary OB: Devin Vasquez [phone] [] or Medicare Insurance [x] Dating Criteria: LMP 08/15/24 with BERNADINE 05/22/25 [x] Labs: Rh [A+], Ab [negative], Rubella [immune], HIV [non-reactive], HepBSAg [non-reactive], HepBSAb [not done], HepBCAb [not done], RPR [non- reactive], Hep C [non-reactive], Varicella [not done], GC/CT [negative/negative] [x] Aneuploidy Screening: normal per OB notes [] Carrier Screening: [] Hgb electrophoresis: [x] CBC/Hgb: 12.2/38.1/plt 282 [x] Hgb A1c 10/27/24: 4.9 [x] UCx: 11/03/24: no growth [x] Pap: 09/04/24: NILM [x] LD ASA (if indicated): recommended 12/10 [] EPDS [ ]; PNBHS referral (if indicated): 2nd Trimester [] Anatomy ultrasound: scheduled [] CBC/1hr gtt at 24-28wks: [] Rhogam at 28 wks (if Rh neg): 3rd Trimester [] CBC/HIV/RPR/T&S: [] GBS: [] GC/CT (if indicated): [] testing: Counseling [] MOD: pt currently hoping for C/S [x] Place of delivery: [facility] [] Epidural: [] Accepts Blood Products: [] Stop ASA: [] MOC: [] Method of feeding: [] Nylon Winder (specifically which provider): [] PP Depression Discussed: [] PP visits scheduled: Vaccines [] Flu Shot (May-Aug): [] COVID vaccine: [] Tdap (27-36wks): [] RSV vaccine (32-36wks): [] PP HPV vaccine counseling (<=26 yo): Estimated Date of Delivery Comme nts Yes 05/22/2025 Based on last me nstrual period of 08/15/2024 Resolved Problems Problem Noted Date Diagnosed Date Resolved Date abnormality affecting management of mother, antepartum condition or complication, fetus 1 11/19/2024 12/11/2024 Twin gestation in second trimester 11/09/2024 12/11/2024 Social History Tobacco Use Types Packs/Day Years Used Date Smoking Tobacco: Never Tobacco Cessation:Counseling Given: Not Answered Alcohol Use Standard Drinks/Week Comments Yes 0 (1 standard drink = 0.6 oz pur e alcohol) social Personal Safety Answer Date Recorded Have you ever been in or are you currently in a harmful physical or emotional relationship or is someone making you feel afraid or unsafe? 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 Gender Identity Not on file Sexual Orientation Not on file Last Filed Vital Signs Vital Sign Reading Time Taken Comments Blood Pressure 113/73 12/22/2024 11:31 AM CDT Pulse 87 12/22/2024 11:31 AM CDT Temperature 37 C (98.6 F) 05/26/2024 1:24 PM CDT Respiratory Rate 18 05/26/2024 4:09 PM CDT Oxygen Saturation 100% 12/22/2024 11:31 AM CDT Inhaled Oxygen Concentration - - Weight 59.9 kg (132 lb) 12/22/2024 11:31 AM CDT Height 162.6 cm (5' 4 ) 12/22/2024 11:31 AM CDT Body Mass Index 22.66 12/22/2024 11:31 AM CDT Plan of Treatment Not on file Procedures Procedure Name Priority Date/Time Associated Diagnosis Comments US OB LIMITED Schedule Routine, Read Routine (OP Routine) 12/22/2024 9:57 AM CDT Monochorionic diamniotic twin in second trimester Uterine synechiae US OB FOLLOW UP Schedule Routine, Read Routine (OP Routine) 12/10/2024 2:14 PM CDT Monochorionic diamniotic twin gestation in second trimester abnormality affecting management of mother, antepartum, single or unspecified fetus Uterine synechiae US OB DETAIL ANATOMY SINGLE OR FIRST GESTATION Schedule Routine, Read Routine (OP Routine) 11/12/2024 11:54 AM CDT Twin , antepartum, unspecified multiple gestation type URINE CULTURE Routine 11/03/2024 HEMOGLOBIN A1C Routine 10/27/2024 ABO/RH Routine 10/27/2024 CBC WITHOUT DIFFERENTIAL Routine 10/27/2024 ANTIBODY SCREEN Routine 10/27/2024 RUBELLA IGG Routine 10/27/2024 RPR Routine 10/27/2024 HEPATITIS B SURFACE ANTIGEN Routine 10/27/2024 HEPATITIS C ANTIBODY Routine 10/27/2024 HIV 1/2 ANTIBODY PLUS P24 ANTIGEN Routine 10/27/2024 CHLAMYDIA TRACHOMATIS CULTURE Routine 10/14/2024 N. GONORRHOEAE CULTURE Routine 10/14/2024 from Last 3 Months Results * US Ob Limited (12/22/2024 9:57 AM CDT) Fetus# Fetus1 VIEWPOINT Placenta Details anterior VIEWPOINT Presentation Vertex; Maternal right- low VIEWPOINT Fetus# Fetus2 VIEWPOINT Placenta Details anterior VIEWPOINT Presentation Breech; Maternal left- high VIEWPOINT Anatomical Region Laterality Modality Abdomen N/A Ultrasound 12/22/2024 10:0 8 AM CDT Impressions 12/22/2024 1:05 PM CDT MCDA TIUP at 18w3d who presents for f/u US. There is a single placental mass, a thin dividing membrane and concordant sexes consistent with monochorionicity. Twin 1 (right/low): 1. Vertex presentation. 2. This fetus remains no longer restricted by the uterine synechia in the right lower uterus. The synechia is still present but the fetus is below this. Notably, the umbilical cord insertion site for this twin is velamentous and on the other side of the synechia but it is not restricted by the synechia. 3. The fluid and bladder are normal. 5. The UA and MCA Dopplers are normal. 6. The bilateral lower extremities are visualized and appear normal. In one view the positioning of the lower right lower limb suggests clubbing; however, in multiple other views the positioning is normal and thus it is positional and does not suggest clubbing. Twin 2 (left/high): 1. Breech presentation. 2. Marginal cord insertion. 3. The fluid and bladder are normal. 4. The UA and MCA Dopplers are normal. Previously visualized fibroid is not seen today. Narrative Procedure Note Shruthi Cross MD - 12/22/2024 IMPRESSION: IVANIA LEDBETTER at 18w3d who presents for f/u US. There is a single placental mass, a thin dividing membrane and concordantfetal sexes consistent with monochorionicity. Twin 1 (right/low): 1. Vertex presentation. 2. This fetus remains no longer restricted by the uterine synechia in theright lower uterus. The synechia is still present but the fetus is belowthis. Notably, the umbilical cord insertion site for this twin isvelamentous and on the other side of the synechia but it is not restrictedby the synechia. 3. The fluid and bladder are normal. 5. The UA and MCA Dopplers are normal. 6. The bilateral lower extremities are visualized and appear normal. Inone view the positioning of the lower right lower limb suggests clubbing;however, in multiple other views the positioning is normal and thus it ispositional and does not suggest clubbing. Twin 2 (left/high): 1. Breech presentation. 2. Marginal cord insertion. 3. The fluid and bladder are normal. 4. The UA and MCA Dopplers are normal. Previously visualized fibroid is not seen today. us Devin Vasquez MD IMG OB US PROCEDURES Final Re sult * US Ob Follow Up (12/10/2024 2:14 PM CDT) Fetus# Fetus1 VIEWPOINT Estimated Weight 194 g&grams VIEWPOINT Placenta Details anterior VIEWPOINT Presentation Breech; Maternal right- low VIEWPOINT Fetus# Fetus2 VIEWPOINT Estimated Weight 186 g&grams VIEWPOINT Placenta Details anterior VIEWPOINT Presentation Breech; Maternal left- high VIEWPOINT Anatomical Region Laterality Modality Abdomen N/A Ultrasound 12/10/2024 2:16 PM CDT Impressions 12/10/2024 4:25 PM CDT MCDIsai TINICHOLAS at 16w5d who presents for f/u US. There is a single placental mass, a thin dividing membrane and concordant sexes consistent with monochorionicity. There is a maternal fibroid seen. Twin 1 (right/low): 1. Breech presentation. 2. This fetus is no longer restricted by the uterine synechia in the right lower uterus. The synechia is still present but the fetus is below this. Notably, the umbilical cord insertion site for this twin is velamentous and on the other side of the synechia but it is not restricted by the synechia. 3. Interval growth is normal. 4. The fluid and bladder are normal. 5. The UA, MCA, and DV Dopplers are normal. 6. The feet were difficult to assess (previous concern about club feet). Twin 2 (left/high): 1. Breech presentation. 2. Interval growth is normal. 3. Marginal cord insertion. 4. The fluid and bladder are normal. 5. The UA, MCA, and DV Dopplers are normal. Patient declines RFA at this time given twin 1 is now free of the synechiae. Recommend q2w TTTS screens. Narrative Procedure Note Shruthi Cross MD - 12/10/2024 IMPRESSION: IVANIA LEDBETTER at 16w5d who presents for f/u US. There is a single placental mass, a thin dividing membrane and concordantfetal sexes consistent with monochorionicity. There is a maternal fibroidseen. Twin 1 (right/low): 1. Breech presentation. 2. This fetus is no longer restricted by the uterine synechia in the rightlower uterus. The synechia is still present but the fetus is below this.Notably, the umbilical cord insertion site for this twin is velamentousand on the other side of the synechia but it is not restricted by thesynechia. 3. Interval growth is normal. 4. The fluid and bladder are normal. 5. The UA, MCA, and DV Dopplers are normal. 6. The feet were difficult to assess (previous concern about club feet). Twin 2 (left/high): 1. Breech presentation. 2. Interval growth is normal. 3. Marginal cord insertion. 4. The fluid and bladder are normal. 5. The UA, MCA, and DV Dopplers are normal. Patient declines RFA at this time given twin 1 is now free of thesynechiae. Recommend q2w TTTS screens. us Nicci Patrick MD IMG OB US PROCEDURES Final Result * US Ob Detail Anatomy Single Or First Gestation (11/12/2024 11:54 AM CDT) Fetus# Fetus1 VIEWPOINT Placenta Details anterior VIEWPOINT Fetus# Fetus2 VIEWPOINT Placenta Details anterior VIEWPOINT Anatomical Region Laterality Modality Body N/A Ultrasound 11/12/2024 12:1 1 PM CDT Impressions 11/12/2024 4:40 PM CDT Twin gestation at 12w5d with cardiac activity x2. There is one placenta with a T-sign and a thin dividing membrane between the twins, consistent with a mo-di twin . The placenta is anterior and implants partially onto a synechia that travels in a transverse direction from the left lower uterus. Twin B is free above this synechia. Twin A has head to the left side of the synechia and body to the right of the synechia: it currently appears fixed within these boundaries however there is no apparent compression from the synechia. There is one arm above synechia, the remainder of the fetus is below. Twin A: The CRL corresponded to reported dating criteria. The nuchal translucency measured within normal limits. A nasal bone was visualized. There is concern for bilateral club feet. The remainder of the limited anatomy is within normal limits. There is a grossly normal amniotic fluid volume. Twin B: The CRL corresponded to reported dating criteria. The nuchal translucency measured within normal limits. A nasal bone was visualized. The remainder of the limited anatomy is within normal limits. There is a grossly normal amniotic fluid volume. There is a small anterior intramural myoma, measured as above. Patient seen separately in consultation in the Care Center, please see consult note for details. Narrative Procedure Note Shruthi Cross MD - 11/12/2024 IMPRESSION: Twin gestation at 12w5d with cardiac activity x2. There is one placenta with a T-sign and a thin dividing membrane betweenthe twins, consistent with a mo-di twin . The placenta isanterior and implants partially onto a synechia that travels in atransverse direction from the left lower uterus. Twin B is free above thissynechia. Twin A has head to the left side of the synechia and body to theright of the synechia: it currently appears fixed within these boundarieshowever there is no apparent compression from the synechia. There isone arm above synechia, the remainder of the fetus is below. Twin A: The CRL corresponded to reported dating criteria. The nuchaltranslucency measured within normal limits. A nasal bone wasvisualized. There is concern for bilateral club feet. The remainder of thelimited anatomy is within normal limits. There is a grossly normalamniotic fluid volume. Twin B: The CRL corresponded to reported dating criteria. The nuchaltranslucency measured within normal limits. A nasal bone wasvisualized. The remainder of the limited anatomy is within normal limits.There is a grossly normal amniotic fluid volume. There is a small anterior intramural myoma, measured as above. Patient seen separately in consultation in the Care Center, pleasesee consult note for details. Nicci Patrick MD IMG OB US PROCEDURES Final Result * Urine culture (11/03/2024) SCRIBED Urine culture no growth Devin Vasquez MD LAB MICROBIOLOGY - GENERAL OR DERABLES Final Result * HIV 1/2 Antibody plus p24 Antigen Blood (10/27/2024) SCRIBED HIV P24 Nonreactive Nonreactive , Invalid Blood Devin Vasquez MD LAB MICROBIOLOGY - GENERAL OR DERABLES Final Result * Hepatitis C antibody Blood (10/27/2024) SCRIBED HCV ab non-reacti ve Blood Devin Vasquez MD LAB MICROBIOLOGY - GENERAL OR DERABLES Final Result * ABO/Rh (10/27/2024) SCRIBED ABO/Rh A+ Blood us Devin Vasquez MD LAB BLOOD BANK TEST ORDERABLE S Final Result * Rubella IgG antibody Blood (10/27/2024) [facility] Rubella IgG Scribed Immune Blood us Devin Vasquez MD LAB MICROBIOLOGY - GENERAL OR DERABLES Final Result * RPR Blood (10/27/2024) [facility] SCRIBED RPR Non-Reacti ve Non-Reacti ve Blood us Devin Vasquez MD LAB MICROBIOLOGY - GENERAL OR DERABLES Final Result * Hepatitis B Surface Antigen Blood (10/27/2024) [facility] SCRIBED HBsAg Nonreactive Nonreactive , Invalid Blood us Devin Vasquez MD LAB MICROBIOLOGY - GENERAL OR DERABLES Final Result * CBC without differential (10/27/2024) [facility] Hct 38.1 Hgb 12.2 Plt 282 Blood us Devin Vasquez MD LAB BLOOD ORDERABLES Final Re sult * Antibody screen (10/27/2024) [facility] SCRIBED Indirect Antiglobulin negative Blood us Devin Vasquez MD LAB BLOOD BANK TEST ORDERABLE S Final Result * Hemoglobin A1c (10/27/2024) [facility] SCRIBED Hemoglobin A1c 4.9 % Blood us Devin Vasquez MD LAB BLOOD ORDERABLES Final Re sult * Chlamydia trachomatis culture (10/14/2024) SCRIBED Chlamydia culture negative Devin Vasquez MD LAB MICROBIOLOGY - GENERAL OR DERABLES Final Result * N. gonorrhoeae culture (10/14/2024) SCRIBED Gonorrhea culture negative Devin Vasquez MD LAB MICROBIOLOGY - GENERAL OR DERABLES Final Result from Last 3 Months Insurance [id number] [place] [address] Member Subscriber Plan / Payer (Ef fective 2021-Present) Name:Tess Cortes Relation to Subscriber:Self Name:Tess Cortes Payer ID:[id number] (NAIC) Group ID:Not on file Type:MEDICAID RISK OTHER Address: ATTN: CLAIMS DEPT [address] [place] [id number] [facility] Member Subscriber Plan / Payer (Ef fective 2021-Present) Name:Malcolm Cortesliset Malik Relation to Subscriber:Self Name:SebastianMalcolmliset Malik Payer ID:[id number] (NAIC) Group ID:Not on file Type:MEDICAID RISK OTHER Address: ATTN: CLAIMS DEPT [address] [facility] [place] [id number] [facility] Member Subscriber Plan / Payer (Ef fective 2021-Present) Name:Sebastian Tess R Relation to Subscriber:Self Name:Tess Cortes [place] Payer ID:[id number] (NAIC) Group ID:Not on file Type:MEDICAID RISK OTHER Address: ATTN: CLAIMS DEPT [address] [facility] [place] [id number] [facility] Care Teams [employer] Field Technician Relationship Specialty Start Date End Date No, Physician PCP - General 11/05/24 Nicci Patrick MD [address] [facility] [address] [place] [id number] Referring Physician Obstetrics and Gynecology 11/05/24 Dontrell Rizo MD [address] [place], [place] [id number] Obstetrics and Gynecology 11/06/24
--- OUTSIDE RECORDS SUMMARY | 2025-01-04 08:08 | XMS_ITS | Clinical Summary ---
Author Organization [place] [id number] [facility] Address [address] [place] [address] Care Team Providers Care Roofing Sales Representative Name Role Phone No, Physician Primary Care Provider [phone] Nicci Patrick MD Unavailable [phone] Dontrell Rizo MD Unavailable Allergies Active Allergy Reactions Criticality [...] as needed for anxiety 10 tablet 10/13/19 23 Active Additional Information Patient not taking.Reported [...] testing at 32 weeks [] Delivery by [id number] (prefer [id number]) Supervision of high-risk , second trime ster 11/09/2024 Overview (12/22/2024): [x] Full MFM Care- as of 12/22/2024 per pts request [x] Blue Team Referring Provider: Nicci Patrick [phone] Primary OB: Devin Vasquez [phone] [] or Medicare Insurance [x] Dating Criteria: [...] [] MOC: [] Method of feeding: [] Surgery Attendant (specifically which provider): [] PP Depression Discussed: [...] Twin gestation in second trimester 11/09/2024 12/11/2024 Encounters Date Type Department Care Team Description 12/22/2024 11:00 AM CDT Office Visit [facility] Maternal- Medicine [facility] 7th Floor [address] [place] [address] Club foot, , affecting care of mother, antepartum, fetus 1 (Primary Dx); Monochorionic diamniotic twin in second trimester; Supervision of high-risk , second trimester; Uterine synechiae 12/22/2024 9:57 AM CDT - 12/22/2024 11:59 PM CDT Hospital Encounter [facility] - Ultrasound [address] [facility], 7th Floor, [address] [facility] [place] [address] Monochorionic diamniotic twin in second trimester; Uterine synechiae Discharge Disposition: Discharge to home or self care 12/10/2024 3:30 PM CDT Office Visit [facility] Obstetrics and Gynecology [facility] 7th Floor [address] [place] [address] Uterine synechiae (Primary Dx); Club foot, , affecting care of mother, antepartum, fetus 1; Monochorionic diamniotic twin in second trimester; Supervision of high-risk , second trimester 12/10/2024 2:00 PM CDT - 12/10/2024 11:59 PM CDT Hospital Encounter [facility] - Ultrasound [address], 7th Floor, [address] [place] [address] Monochorionic diamniotic twin gestation in second trimester; abnormality affecting management of mother, antepartum, single or unspecified fetus; Uterine synechiae Discharge Disposition: Discharge to home or self care 12/03/2024 Telephone [facility] Maternal- Medicine [address] [facility] 7th Floor [address] [place] [id number] Emy Horn, RN Ultrasound report 11/19/2024 Orders Only [facility] Obstetrics and Gynecology [address] [place] [address] 7th Floor [address] [place] [address] Rossy Pinedo, FELIZ Supervision of high-risk , second trimester (Primary Dx) 11/12/2024 1:30 PM CDT Office Visit [facility] Obstetrics and Gynecology [address] [place] [address] 7th Floor [address] [place] [address] Monochorionic diamniotic twin gestation in second trimester (Primary Dx); Supervision of high-risk , second trimester; Uterine synechiae; Screening for depression [Z13.31] 11/12/2024 11:54 AM CDT - 11/12/2024 11:59 PM CDT Hospital Encounter [facility] - Ultrasound [address] [place] [address], 7th Floor, [address] [place] [address] Twin , antepartum, unspecified multiple gestation type Discharge Disposition: Discharge to home or self care from Last 3 Months Surgical History Surgery Date Site/Laterality Comments NO [...] on file 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 Gender Identity Not on file Sexual Orientation Not on file Obstetrics History Para Term AB IAB SAB Ectopic Multiple Livin g Live Births 3 2 2 Date Outcome GA Total Labor Labor/2nd/3rd Weight Sex Type Anes PTL Flor A1 A5 Name Clin IAB med IAB med Current Summary Episode Dates Number of Fetuses Estimated Date of Delivery 11/09/2024 - Present (01/04/2025) 05/22/2025 (set by Beba Green MD on 11/13/2024 based on Last Menstrual Period on 08/15/2024) Dating Summary Based On BERNADINE GA Diff Last Menstrual Period on 08/15/2024 05/22/2025 Working Vitals Pregravid Weight Height TWG (As of 01/04/2025) Pregrav id BMI 162.6 cm (5' 4 ) Date GA Fund Present FHR Mvmt BP Weight Edema Alb Glu Ket Dil/ Eff/Sta 5 12w5d Inpatient data not displayed here. See encounter summary. 5 16w5d Inpatient data not displayed here. See encounter summary. 5 18w3d Inpatient data not displayed here. See encounter summary. Notes Progress Notes - Office Visi t - 12/22/2024 - GA:18w3d 12/22/2024 - 18w3d - Karey Siddiqi, RONAL Dear Dr. Vasquez, It was a pleasure meeting again with our mutual patient in continued consultation. MF Return Visit 12/22/2024 Tess Cortes is a 19 y.o. at 18w3d who is here for a return OB visit. Her is complicated by Harleen twins previously complicated by trapped twin that is now resolved. Subjective: Feels well today. She denies cramping, loss of fluid, or vaginal bleeding. Currently being treated with Macrobid for a UTI. Desires full FELIPE to [facility] to help limited appts. Objective: BP 113/73 Pulse 87 Ht 162.6 cm (5' 4 ) Wt 132 lb (59.9 kg) LMP 08/15/2024 SpO2 100% BMI 22.66 kg/m General: NAD Abdomen: Soft, gravid, NT, FHR +x2 Ultrasound: normal dopplers/normal fluid- see finalized US report Assessment/Plan: Tess Cortes is a 19 y.o. at 18w3d with a complicated by the following: Problem List BERNADINE 05/22/25 Club foot, , affecting care of mother, antepartum, fetus 1 - Primary Overview Previous US was concerning for clubfeet of twin 1 Repeat US normals [] Specialized anatomy- scheduled Monochorionic diamniotic twin in second trimester Overview History: Spontaneous triplet that spontaneous reduced to [...] testing at 32 weeks [] Delivery by [id number] (prefer [id number]) Supervision of high-risk , second trimester Overview [x] Full MFM Care- as of 12/22/2024 per pts request [x] Blue Team Referring Provider: Nicci Patrick [phone] Primary OB: Devin Vasquez [phone] [] [employer] [place] or Medicare Insurance [x] Dating Criteria: LMP [...] [] MOC: [] Method of feeding: [] Surgery Attendant (specifically which provider): [] PP Depression Discussed: [] PP visits scheduled: Vaccines [] Flu Shot (May-Aug): [] COVID vaccine: [] Tdap (27-36wks): [] RSV vaccine (32-36wks): [] PP HPV vaccine counseling (<=26 yo): Uterine synechiae Overview She is aware that presence of a synechia does increase risk of PPROM. No therapy is recommended. Hospital precautions reviewed. PVT information and FCC information reviewed. Thank you for allowing me to participate in the care of this anastasiya patient. If you have any questions or concerns do not hesitate to contact our office. Sincerely, DAENTTE Hernández Cosigned by Kenia Sanchez MD at 12/23/2024 4:52 PM CDT Progress Notes - Office Visi t - 12/10/2024 - GA:16w5d 12/10/2024 - 16w5d - Shruthi Cross MD MFM Return Visit 12/10/2024 Tess Cortes is a 19 y.o. at 16w5d by LMP consistent with 1st trimester Ultrasound who is here for a return OB visit. Her is complicated by MCDA TIUP and uterine synechia. Subjective: She reports no complaints. She was last seen 4 weeks ago with a plan for assessing for need of selective reduction given twin 1 previously trapped in the uterine synechia. However, with her primary OB and again today that twin is no longer trapped and appears normal. Objective: LMP 08/15/2024 General: NAD Abdomen: Soft, gravid, NT Extremities: WWP, no edema Ultrasound: MCDA TIUP at 16w5d who presents for f/u US. [...] of the synechiae. Recommend q2w TTTS screens. Assessment/Plan: Tess Cortes is a 19 y.o. at 16w5d with a complicated by below. Problem List Monochorionic diamniotic twin in second trimester Overview History: Spontaneous triplet that spontaneous reduced to twins. At first assessment, MCDA with twin 1 trapped in a uterine synechiae at level of neck. On repeat assessment both twins free of synechia. We reviewed risks of MCDA twins including TTTS, TAPS, and sFGR, defects, and risk of preE, GDM, and . She understands these risks. We discussed starting a baby ASA which I sent to her pharmacy. Due to insurance issues she will need to transfer her MFM care from [facility] to us so we will plan to see her every 2 weeks for TTTS screen and q4w for growths. She will also need echo at 20-22 weeks. At 32w she will need weekly testing. She asked about delivery location and mode. We discussed that all MCDA twin pregnancies should be delivered by 36-37 weeks but may deliver sooner for spontaneous or iatrogenic reasons. She is hoping to deliver at [place] which may be possible depending the course of her . We discussed that delivery mode will be dependent on presentations and sizes of fetuses. With vertex presentation x2, a VD should be offered. VD can also be accomplished if the presenting twin is vertex and the second baby is not significantly larger than the first but this requires provider and patient comfort with breech extraction. We will continue this discussion as progresses. Plan: [x] ASA 81 mg at 12 weeks [] Consider baseline PIH labs - CBC, CMP, UPC [] TTTS/TAPS screening 16-36 weeks every 2 weeks [] Specialized anatomy 20 weeks [] echocardiogram 20-22 weeks [] Serial growth ultrasounds every 4 weeks [] Weekly testing at 32 weeks [] Delivery by [id number] (prefer [id number]) Supervision of high-risk , second trimester Overview [] OB consult only, [x] Co-management vs. [] Full [facility] Care; [] Red Team [x] Blue Team Referring Provider: Nicci Patrick [phone] Primary OB: Devin Vasquez [phone] [] or Medicare Insurance [x] Dating Criteria: [...] 11/03/24: no growth [x] Pap: 09/04/24: NILM [] LD ASA (if indicated): recommended 12/10 [] EPDS [ ]; PNBHS referral (if indicated): 2nd Trimester [] Anatomy ultrasound: [] CBC/1hr gtt at 24-28wks: [] Rhogam at 28 wks (if Rh neg): 3rd Trimester [] CBC/HIV/RPR/T&S: [] GBS: [] GC/CT (if indicated): [] testing: Counseling [] MOD: [] Place of delivery: [] Epidural: [] Accepts Blood Products: [] Stop ASA: [] MOC: [] Method of feeding: [] Surgery Attendant (specifically which provider): [] PP Depression Discussed: [] PP visits scheduled: Vaccines [] Flu Shot (May-Aug): [] COVID vaccine: [] Tdap (27-36wks): [] RSV vaccine (32-36wks): [] PP HPV vaccine counseling (<=26 yo): Uterine synechiae - Primary Overview She is aware that presence of a synechia does increase risk of PPROM. No therapy is recommended. Club foot, , affecting care of mother, antepartum, fetus 1 Overview Previous US was concerning for clubfeet of twin 1. The feet appears more normal today. We will reassess at anatomy US in 4 weeks. Thank you for involving MFM in the care of this anastasiya patient. We will see her back in 2 weeks for TTTS US and 4 weeks for a visit and an anatomy US. In the meantime, she should continue her care with you. Please do not hesitate to reach out with any questions. I spent 25 minutes in consultation with this patient which includes pre-charting and documentation. This does not include time for separately billable services. Reina Cross MA MD Clinical Science Liaison Division of Maternal- Medicine and Ultrasound Department of Obstetrics and Gynecology [facility] 12/11/2024 Progress Notes - Office Visi t - 11/12/2024 - GA:12w5d 11/12/2024 - wd - Evelin Green MD [facility] Consult Note Reason for Consult: Monochorionic diamniotic twins with a synechia Requesting Provider: Devin Vasquez MD, Nicci Patrick MD Dear Drs. Vasquez and Celina, We had the pleasure of seeing your patient Tess Cortes in our office today. As you know, she is a 19 y.o. at 12w5d here today for a consult regarding the above. Patient's history was reviewed from outside records and in detail with her during the consultation and is detailed within the respective problems listed below. Today she is doing well, she feels well. Denies contractions, bleeding, loss of fluid. She has been worried about the uterus and about being a single mother for twins. Her EPDS today is 15 without SI or HI. Past Medical History: Diagnosis Date No pertinent past medical history Past Surgical History: Procedure Laterality Date NO PAST SURGERIES Past Gynecologic History: Prior STIs: denies History of abnormal pap: denies Last pap smear: 09/2024 Patient's last menstrual period was 08/15/2024. Denies history of uterine anomalies or fibroids OB History Para Term AB Living 3 2 SAB IAB Ectopic Multiple Live Births # Outcome Date GA Lbr Cameron/2nd Weight Sex Type Anes PTL Lv 3 Current 2 IAB med 1 IAB med Medications: No current medications No current facility-administered medications for this visit. 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 [employer] Lives with mother Smoke cigarettes, cigars, E-cigs: No Beer, wine, or liquor: No Street drugs/marijuana: No Dating: BERNADINE of Estimated Date of Delivery: 05/22/25 based on LMP c/w first trimester US Review of Systems All review of systems are negative except for as above Physical Exam Vitals LMP 08/15/2024 General: NAD Cardiac: regular rate Pulm: breathing comfortably Abdomen: gravid, non-tender Extremities: trace edema Ultrasound 11/12/2024: Twin gestation at 12w5d with cardiac activity [...] small anterior intramural myoma, measured as above. Please see the separate report for full details Assessment: Ms. Tess Cortes is a anastasiya 19 y.o. at 12w5d here today for a consult regarding: Recommendations: Problem Uterine Synechiae Abnormality Affecting Management of Mother, Antepartum History: Spontaneous triplet that spontaneous reduced to twins.There are now monochorionic diamniotic twins with a uterine synechia entrapping the head/neck of twin A. Counseling: We began by discussing the findings on ultrasound in detail using drawings and models. Discussed the finding of a synechiae, or a muscular scar through the uterus. We discussed that overall we suspect that as progresses, the uterus will expand around the synechae, allowing space for the fetus to move more freely. There are rare cases where a fetus becomes stuck in a certain position, which can causes challenges in development. Additionally, the synechiae itself does increase the risk of / PPROM independently. We then discussed types of twining and her monochorionic, diamniotic twins. Discussed with patients that multifetal gestations are associated with an increased risk of and mortality, primarily due to complications of prematurity. Twins deliver at an average gestational age of 35 weeks, with 20% less than 34 weeks gestation. Rates of maternal complications are also increased including hyperemesis, gestational diabetes, hypertensive disorders of , anemia, hemorrhage, delivery, and depression. Due to the increased risk of hypertensive disorders of , we recommend aspirin for prevention of preeclampsia. Also reviewed that this patient has monochorionic twins, which has a higher risk of complications including twin twin transfusion syndrome (TTTS), which happens in 10-15% of monochorionic diamniotic twin pregnancies . As such we recommend additional screening/surveillance. This includes serial ultrasounds for TTTS every 2 weeks starting at 16 weeks. We also recommend specialized anatomic screening at 18-20 weeks followed by serial growth scans every 4 weeks. surveillance is recommended weekly starting at 32 weeks in uncomplicated monochorionic diamniotic pregnancies. echocardiogram is also recommended at 20-22 weeks. Delivery is recommended [id number] in uncomplicated pregnancies, our practice is usually 36-37 weeks to avoid complications of prematurity and NICU admission. Vaginal is acceptable as long as the presenting twin is vertex, and candidacy for breech extraction should be assessed at the time of delivery if experienced provider is available. We discussed the option of a selective reduction to minimize the risks of twins/given the entrapment of twin A. Discussed that given shared placenta, this cannot be performed through a KCl injection. We would recommend an RFA or laser coagulation, which could not be performed prior to 16 weeks given need for fusion of membranes. Therefore, would consider repeat scan in 2-4 weeks to assess twin involvement in synechia and proceed from there. At the conclusion of our conversation about risks of twins, Tess expressed a desire to discuss termination of . We discussed the basics of a D+C/D+E procedure. Discussed that this care is not available in the state of [place] but can be accessed in other states like [place] or [place]. The [place] Informed Consent booklet was offered, which she accepted. Thank you for the opportunity to be involved in the care of your patient. Should you have any further questions or concerns, please do not hesitate to call us. We have not scheduled Tess for any further follow-up but would recommend a repeat ultrasound in 2 weeks if she is continuing . Patient seen and counseled with care center attending Dr. Cross. Beba Green MD Fellow Division of Maternal- Medicine Department of Obstetrics and Gynecology [facility] 11/13/2024 Cosigned by Shruthi Cross MD at 11/15/2024 9:46 PM CDT Associated attestation - Shruthi Cross MD - 11/15/2024 9:46 PM CDT MFM Attending Attestation I have seen and examined the patient, Tess Cortes, on 11/12/2024 and I am in agreement with the plan as documented in the resident/fellow/JOSE FRANCISCO's note. I spent 50 minutes in consultation with this patient which includes pre-charting and documentation. This does not include time for separately billable services. I communicated these findings to Dr. Patrick, her referring MFM. We will plan to reach back out to Tess early next week to see how we can best help her with this . She is not a a candidate for selective reduction until 16w given monochorionicity so serial US between now and then may help evaluate how impactful this uterine synechia will be to twin A if she decides to continue the . Her EPDS was 15 with no to Q10. She states this is situational with a twin that is complicated by monochorionicity as well as the uterine synechia. Regardless of her plans for this , I strongly recommend an SIS to evaluate her cavity prior to another as hysteroscopy with adhesiolysis may be beneficial to prevent further complications from her uterine scarring. Shruthi Cross MD 11/15/2024 Progress Notes - Abstract - 11/09/2024 - GA:12w2d 11/09/2024 - 12w2d - [place], [place] Current OB records are under media tab and Care Everywhere. Last Filed Vital Signs Vital Sign Reading [...] 12/22/2024 11:31 AM CDT Plan of Treatment Health Maintenance Due Date Last Done Comments Cervical Cancer Screening 2003 Depression Screening 2003 HPV Vaccines (3 - 2-dose series) 09/30/2014 06/03/2014, 03/30/2014 Meningococcal B Vaccine (1 of 2 - Standard) 2019 Regular Well Visit/Exam 18-64 2021 DTaP/Tdap/Td Vaccine (6 - Td or Tdap) 03/30/2024 03/30/2014, 03/26/2005, 02/10/2004, Additional history exists Influenza Vaccine (Season Ended) 2025 06/03/2014, 07/21/2012 Pneumococcal vaccine <65 Aged Out 2003, 10/31 No longer eligible based on patient's age to complete this topic Hepatitis B Screening Completed 02/10/2004 , 2003, 2003 Varicella Vaccines Completed 03/30/2014, 03/26/2005 Meningococcal Vaccine Aged Out 06/03/2014 No chuck dominik eligible based on patient's age to complete this topic Hepatitis C Screening Completed 10/27/2024 Procedures Procedure Name Priority Date/Time Associated Diagnosis [...] PM CDT Impressions 12/10/2024 4:25 PM CDT MCDA TIUP at 16w5d who presents for f/u US. [...] Note Shruthi Cross MD - 12/10/2024 IMPRESSION: MCDA TIUP at 16w5d who presents for f/u US. [...] Care Center, pleasesee consult note for details. us Nicci Patrick MD IMG OB US PROCEDURES Final Result * Urine culture (11/03/2024) SCRIBED Urine culture no growth us Devin Vasquez MD LAB MICROBIOLOGY - GENERAL OR DERABLES Final Result * HIV 1/2 Antibody plus p24 Antigen Blood (10/27/2024) SCRIBED HIV P24 Nonreactive Nonreactive , Invalid Blood us Devin Vasquez MD LAB MICROBIOLOGY - GENERAL OR DERABLES Final Result * Hepatitis C antibody Blood (10/27/2024) SCRIBED HCV ab non-reacti ve Blood us Devin Vasquez MD LAB MICROBIOLOGY - GENERAL OR DERABLES Final Result * ABO/Rh (10/27/2024) SCRIBED ABO/Rh A+ Blood us Devin Vasquez MD LAB BLOOD BANK TEST ORDERABLE S Final Result * Rubella IgG antibody Blood (10/27/2024) Rubella IgG Scribed Immune Blood us Devin Vasquez MD LAB MICROBIOLOGY - GENERAL OR DERABLES Final Result * RPR Blood (10/27/2024) SCRIBED RPR Non-Reacti ve Non-Reacti ve Blood us Devin Vasquez MD LAB MICROBIOLOGY - GENERAL OR DERABLES Final Result * Hepatitis B Surface Antigen Blood (10/27/2024) SCRIBED HBsAg Nonreactive Nonreactive , Invalid Blood us Devin Vasquez MD LAB MICROBIOLOGY - GENERAL OR DERABLES Final Result * CBC without differential (10/27/2024) Hct 38.1 Hgb 12.2 Plt 282 Blood Devin Vasquez MD LAB BLOOD ORDERABLES Final Re sult * Antibody screen (10/27/2024) SCRIBED Indirect Antiglobulin negative Blood Devin Vasquez MD LAB BLOOD BANK TEST ORDERABLE S Final Result * Hemoglobin A1c (10/27/2024) SCRIBED Hemoglobin A1c 4.9 % Blood Devin Vasquez MD LAB BLOOD ORDERABLES Final Re sult * Chlamydia trachomatis culture (10/14/2024) SCRIBED Chlamydia culture negative Devin Vasquez MD LAB MICROBIOLOGY - GENERAL OR DERABLES Final Result * N. gonorrhoeae culture (10/14/2024) SCRIBED Gonorrhea culture negative us Devin Vasquez MD LAB MICROBIOLOGY - GENERAL OR DERABLES Final Result from Last [address] [place] [address] [facility] [place] [address] [facility] [place] [address] [facility] Care Teams Roofing Sales Representative Relationship Specialty Start Date End Date No, Physician PCP - General 11/05/24 Nicci Patrick MD [address] [facility] [address] [place] [id number] Referring Physician Obstetrics and Gynecology 11/05/24 Dontrell Rizo MD [address] [place] [address] Obstetrics and Gynecology 11/06/24
--- OUTSIDE RECORDS SUMMARY | 2025-01-04 08:08 | XMS_ITS | Data Portability ---
Author Organization [facility] Robert Lee Address [address] [place] [address] Assessment Encounter Date Assessment Date Assessment LastModified by Organization Details LastModified Time 12/30/2024 12/30/2024 Patient is _19__weeks . Discussed plan. Not available 12/30/2024 11:33:40 Plan of Treatment Reminders Order Date Submit Date Provider Last Modified By Organization Details Last Modified Time Details Appointments OB ROUTINE 2024 01:00P Kristen Baker CNM Not available Not available Not available Lab urinalysi s, dipstick 2024 025 [email or web address] Robert Lee[address], [address], [place], [address], 12/30/2024 11:12:45 urinalysi s, dipstick 2024 025 [email or web address] Robert Lee[address], [address], [place], [address], 12/15/2024 12:04:41 Referral None recorded. Procedures None recorded. Surgeries None recorded. Imaging US, obstetric , limited 2024 025 ESTHER Robert Lee[address], [address], [place], [address], 12/01/2024 14:15:48 US, obstetric , nuchal transluce ncy 2024 025 [email or web address] Robert Lee[address], [address], [place], [address], 11/03/2024 17:33:08 US, obstetric , nuchal transluce ncy, additiona l gestation 2024 025 [email or web address] Robert Lee[address], [address], [place], [address], 11/03/2024 17:33:08 Medication Orders None recorded. Patient TargetsNo targets recorded. Patient InstructionsNo instructions recorded. Reason for Referral None Reported. Results Created Date Observation Date Name Description Value Unit Range Abnormal Flag Note LastModifiedBy Organization Detail LastModifiedTime 10/14/1910/14/2024 CT/GC AND TRICH OMONA S VAGIN KADE (RRNA ), URINE chlamydia trachomatis, PCR Negati ve negati ve Not Available [facility] (Lab) [address], [place], [address], 10/16/2024 01:44:10 10/14/1910/14/2024 CT/GC AND TRICH OMONA S VAGIN KADE (RRNA ), URINE neisseria gonorrhoeae, PCR Negati ve negati ve Not Available [facility] (Lab) [address], [place], [address], 10/16/2024 01:44:10 10/14/19 25 10/14/2024 CT/GC AND TRICH OMONA S VAGIN KADE (RRNA ), URINE trichomonas vaginalis ribosomal RNA (rrna) Negati ve negati ve Not Available [facility] (Lab) [address], [place], [address], 10/16/2024 01:44:10 10/27/19 25 10/27/2024 CBC W/DIF F WBC 6.1 10'3/ uL 3.5-10 .5 Not Available [facility] (Lab) [address], [place], [address], 10/28/2024 19:11:32 10/27/19 25 10/27/2024 CBC W/DIF F RBC 4.77 10'6/ uL (based on docume nted legal sex) 3.80-5 .20 Not Available [facility] (Lab) [address], [place], [address], 10/28/2024 19:11:32 10/27/19 25 10/27/2024 CBC W/DIF F HGB 12.2 g/dL (based on docume nted legal sex) 11.6-1 5.4 Not Available [facility] (Lab) [address], [place], [address], 10/28/2024 19:11:32 10/27/19 25 10/27/2024 CBC W/DIF F HCT 38.1 % (based on docume nted legal sex) 34.0-4 5.0 Not Available [facility] (Lab) [address], [place], [address], 10/28/2024 19:11:32 10/27/19 25 10/27/2024 CBC W/DIF F MCV 79.9 fL 80.0-9 9.0 low Not Available [facility] (Lab) [address], [place], [address], 10/28/2024 19:11:32 10/27/19 25 10/27/2024 CBC W/DIF F MCH 25.6 pg 27.0-3 4.0 low Not Available [facility] (Lab) [address], [place], [address], 10/28/2024 19:11:32 10/27/19 25 10/27/2024 CBC W/DIF F MCHC 32.0 g/dL 32.0-3 5.5 Not Available [facility] (Lab) [address], [place], [address], 10/28/2024 19:11:32 10/27/19 25 10/27/2024 CBC W/DIF F RDW 16.0 % 11.0-1 5.0 high Not Available [facility] (Lab) [address] [facility], [place], [address], 10/28/2024 19:11:32 10/27/19 25 10/27/2024 CBC W/DIF F plt 282 10'3/ uL 150-40 0 Not Available [facility] (Lab) [address] [facility], [place], [address], 10/28/2024 19:11:32 10/27/19 25 10/27/2024 CBC W/DIF F MPV 12.6 fL 8.8-12 .1 high Not Available [facility] (Lab) [address] [facility], [place], [address], 10/28/2024 19:11:32 10/27/19 25 10/27/2024 CBC W/DIF F neutrophils 63.1 % 34.0-7 3.0 Not Available [facility] (Lab) [address] [facility], [place], [address], 10/28/2024 19:11:32 10/27/19 25 10/27/2024 CBC W/DIF F lymphocytes 27.3 % 15.0-5 0.0 Not Available [facility] (Lab) [address] [facility], [place], [address], 10/28/2024 19:11:32 10/27/1910/27/2024 CBC W/DIF F monocytes 6.6 % 1.0-15 .0 Not Available [facility] (Lab) [address] [facility], [place], [address], 10/28/2024 19:11:32 10/27/19 25 10/27/2024 CBC W/DIF F eosinophils 2.3 % 0.0-8. 0 Not Available [facility] (Lab) [address] [facility], [place], [address], 10/28/2024 19:11:32 10/27/19 25 10/27/2024 CBC W/DIF F basophils 0.5 % 0.0-2. 0 Not Available [facility] (Lab) [address] [facility], [place], [address], 10/28/2024 19:11:32 10/27/19 25 10/27/2024 CBC W/DIF [...] separ ately if prese nt. Not Available [facility] (Lab) [address] [facility], [place], [address], 10/28/2024 19:11:32 10/27/19 25 10/27/2024 CBC W/DIF F absolute neutrophils 3.8 10'3/ uL 1.5-8. 0 Not Available [facility] (Lab) [address] [facility], [place], [address], 10/28/2024 19:11:32 10/27/19 25 10/27/2024 CBC W/DIF F absolute lymphocytes 1.7 10'3/ uL 1.0-4. 0 Not Available [facility] (Lab) [address] [facility], [place], [address], 10/28/2024 19:11:32 10/27/19 25 10/27/2024 CBC W/DIF F absolute monocytes 0.4 10'3/ uL 0.2-1. 0 Not Available [facility] (Lab) [address] [facility], [place], [address], 10/28/2024 19:11:32 10/27/19 25 10/27/2024 CBC W/DIF F absolute eosinophils 0.1 10'3/ uL 0.0-0. 6 Not Available [facility] (Lab) [address] [place], [address], 10/28/2024 19:11:32 02/25/20 25 10/27/2024 CBC W/DIF F absolute basophils 0.0 10'3/ uL 0.0-0. 3 Not Available [facility] (Lab) [address], [place], [address], 10/28/2024 19:11:32 10/27/19 25 10/27/2024 CBC W/DIF [...] the indiv idual patie nt: https :[email or web address] g/gen derx Not Available [facility] (Lab) [address], [place], [address], 10/28/2024 19:11:32 10/27/1910/27/2024 HEMOG LOBIN A1C hemoglobin [...] >8.0% Actio n sugge sted Not Available [facility] (Lab) [address], [place], [address], 10/28/2024 19:11:32 10/27/19 25 10/27/2024 TYPE/ RH/SC REEN ABO/Rh type A POS Not Available [facility] (Lab) [address], [place], [address], 10/28/2024 19:11:32 10/27/19 25 10/27/2024 TYPE/ RH/SC REEN antibody screen NEG Not Available [facility] (Lab) [address] [facility], [place], [address], 10/28/2024 19:11:32 10/27/19 25 10/27/2024 TYPE/ RH/SC REEN exp date 2024 23:59 Not Available [facility] (Lab) [address], [place], [address], 10/28/2024 19:11:32 10/27/1910/27/2024 HEPAT ITIS B SURFA CE ANTIG EN hepatitis B surface antigen Non-re active non-re active This assay was perfo rmed using [employer] ratio n reage nts and test kits. Value s obtai justo with other assay metho ds or kits canno t be used inter cruz eably . Not Available [facility] (Lab) [address] [facility], [place], [address], 10/28/2024 19:11:32 10/27/1910/27/2024 HIV 1/2 ANTIG EN/AN TIBOD Y, REFLE X CONFI RMATI ON HIV antigen/anti body Nonrea ctive nonrea ctive HIV-1 antig en and HIV-1 /HIV- 2 antib odies were not detec ramiro. No labor atory evide nce of HIV infec tion. Not Available [facility] (Lab) [address], [place], [address], 10/28/2024 19:11:33 10/27/1910/27/2024 HEPAT ITIS C ANTIB JAKOB SCREE N, REFLE X TO CONFI RMATI ON hepatitis C antibody Non-re active non-re active Antib odies to HCV Not Detec ramiro, does not exclu de the possi bilit y of expos ure to HCV. Not Available [facility] (Lab) [address] [place], [address], 10/28/2024 19:11:33 10/27/1910/27/2024 RUBEL LA IGG ANTIB JAKOB, QUANT rubella antibodies, IgG Reacti ve reacti ve Not Available [facility] (Lab) [address] [place], [address], 10/28/2024 19:11:33 10/27/19 25 10/27/2024 RUBEL LA IGG ANTIB JAKOB, QUANT rubella antibodies, IgG quant 43.5 IU/mL >=10 Non-r eacti ve (Non- Immun e) <10 IU/mL React nicolas (Immu ne) > or = 10 IU/mL Not Available [facility] (Lab) [address] [place], [address], 10/28/2024 19:11:33 10/27/1910/27/2024 RPR SCREE N, REFLE X TITER /CONF IRMAT ION RPR qualitative Nonrea ctive nonrea ctive Not Available [facility] (Lab) [address] [place], [address], 10/28/2024 19:11:34 11/04/1911/03/2024 CULTU RE: URINE result report SEE RESULT S BELOW Test: Cultu re: Urine Speci men Sourc e: Urine - Clean Catch Speci men Type: Urine Speci men Date: 1635 Resul t Date: 1430 Resul t Statu s: Final resul t Abnor mal: No Resul ting Lab: [facility] [address] [facility] [address] Tel: [phone] CULTU RE ----- ----- ----- --- No growt h in 1 day (dete ction level of 10,00 0 colon ies / ml.) Not Available [facility] (Lab) [address] [place], [address], 11/04/2024 15:34:47 03/04/20 25 11/03/2024 drug scree n, urine Amphetamines : negati ve Not Available Robert Lee [address], [place], [address], 11/03/2024 17:44:48 11/04/19 25 11/03/2024 drug scree n, urine Cannabinoids : positi ve Not Available Robert Lee [address], [place], [address], 11/03/2024 17:44:48 11/04/19 25 11/03/2024 drug scree n, urine Cocaine: negati ve Not Available Robert Lee [address], [place], [address], 11/03/2024 17:44:48 11/04/19 25 11/03/2024 drug scree n, urine Opiates: negati ve Not Available Robert Lee [address], [place], [address], 11/03/2024 17:44:48 11/04/19 25 11/03/2024 drug scree n, urine Phenocyclidi ne: negati ve Not Available Robert Lee [address], [place], [address], 11/03/2024 17:44:48 11/04/19 25 11/03/2024 drug scree n, urine Barbiturates : negati ve Not Available Robert Lee [address], [place], [address], 11/03/2024 17:44:48 11/04/19 25 11/03/2024 drug scree n, urine Benzodiazepi louise: negati ve Not Available Robert Lee [address], [place], [address], 11/03/2024 17:44:48 11/04/19 25 11/03/2024 drug scree n, urine Ethanol: negati ve Not Available Robert Lee [address], [place], [address], 11/03/2024 17:44:48 11/04/19 25 11/03/2024 drug scree n, urine Hallucinogen s: negati ve Not Available Robert Lee [address], [place], [address], 11/03/2024 17:44:48 11/04/19 25 11/03/2024 drug scree n, urine Inhalants: negati ve Not Available Robert Lee [address], [place], [address], 11/03/2024 17:44:48 11/04/19 25 11/03/2024 drug scree n, urine Anabolic Steroids: negati ve Not Available Robert Lee [address], [place], [address], 11/03/2024 17:44:48 12/16/19 25 12/15/2024 urina lysis , dipst ick Leukocytes TRACE Not Available [facility] jania [address], [place], [address], 12/15/2024 12:03:15 12/16/19 25 12/15/2024 urina lysis , dipst ick Nitrite NEG Not Available Robert Lee [address], [place], [address], 12/15/2024 12:03:15 12/16/19 25 12/15/2024 urina lysis , dipst ick Urobilinogen NEG Not Available [facility] marcial [address], [place], [address], 12/15/2024 12:03:15 12/16/19 25 12/15/2024 urina lysis , dipst ick Protein POS Not Available Robert Lee [address], [place], [address], 12/15/2024 12:03:15 12/16/19 25 12/15/2024 urina lysis , dipst ick pH 6 Not Available Robert Lee [address], [place], [address], 12/15/2024 12:03:15 12/16/19 25 12/15/2024 urina lysis , dipst ick Specific [place] 1.010 [facility] Available [facility] [address], [place], [address], 12/15/2024 12:03:15 12/16/1912/15/2024 urina lysis , dipst ick Ketone POS Not Available Robert Lee [address], [place], [address], 12/15/2024 12:03:15 12/16/19 25 12/15/2024 urina lysis , dipst ick Bilirubin NEG Not Available [facility] [address], [place], [address], 12/15/2024 12:03:15 12/16/19 25 12/15/2024 urina lysis , dipst ick Glucose NEG Not Available Robert Lee [address], [place], [address], 12/15/2024 12:03:15 12/16/19 25 12/15/2024 urina lysis , dipst ick Appearance DARK Not Available [facility] [address], [place], [address], 12/15/2024 12:03:15 12/16/19 25 12/15/2024 urina lysis , dipst ick Color YELLOW Not Available Robert Lee [address], [place], [address], 12/15/2024 12:03:15 12/31/19 25 12/30/2024 CULTU RE: URINE result report SEE RESULT S BELOW Test: Cultu re: Urine Speci men Sourc e: Urine - Clean Catch Speci men Type: Urine Speci men Date: 2024 1329 Resul t Date: 025 2053 Resul t Statu s: Final resul t Abnor mal: No Resul ting Lab: [facility] [address] [facility] [address] Tel: CULTU RE ----- ----- ----- --- No growt h in 1 day (dete ction level of 10,00 0 colon ies / ml.) Not Available [facility] (Lab) [address], [place], [address], 12/31/2024 21:57:24 12/31/19 25 12/30/2024 urina lysis , dipst ick Leukocytes negati ve Not Available Robert Lee [address], [place], [address], 12/30/2024 11:11:15 12/31/19 25 12/30/2024 urina lysis , dipst ick Nitrite normal Not Available Robert Lee [address], [place], [address], 12/30/2024 11:11:15 12/31/19 25 12/30/2024 urina lysis , dipst ick Urobilinogen normal Not Available [facility] [address], [place], [address], 12/30/2024 11:11:15 12/31/19 25 12/30/2024 urina lysis , dipst ick Protein trace Not Available Robert Lee [address], [place], [address], 12/30/2024 11:11:15 12/31/19 25 12/30/2024 urina lysis , dipst ick pH 7 Not Available Robert Lee [address], [place], [address], 12/30/2024 11:11:15 12/31/19 25 12/30/2024 urina lysis , dipst ick Specific [place] 1.015 Not Available [facility] [address], [place], [address], 12/30/2024 11:11:15 12/31/19 25 12/30/2024 urina lysis , dipst ick Ketone normal Not Available Robert Lee [address], [place], [address], 12/30/2024 11:11:15 12/31/19 25 12/30/2024 urina lysis , dipst ick Bilirubin normal Not Available [facility] [address], [place], [address], 12/30/2024 11:11:15 12/31/19 25 12/30/2024 urina lysis , dipst ick Glucose normal Not Available Robert Lee [address], [place], [address], 12/30/2024 11:11:15 12/31/19 25 12/30/2024 urina lysis , dipst ick Appearance normal Not Available [facility] jania [address], [place], [address], 12/30/2024 11:11:15 12/31/19 25 12/30/2024 urina lysis , dipst ick Color normal Not Available Robert Lee [address], [place], [address], 12/30/2024 11:11:15 10/14/19 25 10/14/2024 US, obste tric, trans vagin al No observ ation record ed. [email or web address] Robert Lee [address], [place], [address], 10/14/2024 17:42:55 10/14/19 25 10/14/2024 US, obste tric, trans vagin al No observ ation record ed. [email or web address] Kristyn [address], [place], [address], 10/15/2024 13:26:39 10/27/19 25 10/27/2024 US, obste tric, 1st trime ster No observ ation record ed. [email or web address] Robert Lee [address], [place], [address], 10/27/2024 13:48:35 10/27/1910/27/2024 US, obste tric, 1st trime ster No observ ation record ed. Kristyn [address], [place], [address], 10/29/2024 00:20:41 11/04/19 25 11/03/2024 US, obste tric, nucha l trans lucen cy No observ ation record ed. [email or web address] Robert Lee [address], [place], [address], 11/03/2024 17:15:02 11/04/19 25 11/03/2024 US, obste tric, nucha l trans lucen cy, addit ional gesta tion No observ ation record ed. [email or web address] Robert Lee [address], [place], [address], 11/03/2024 17:15:11 11/04/19 25 11/03/2024 US, obste tric, nucha l trans lucen cy No observ ation record ed. [email or web address] Kristyn [address], [place], [address], 11/05/2024 00:19:15 11/07/19 25 11/04/2024 US, obste tric, follo w-up No observ ation record ed. [email or web address] [facility] [address] [facility], [place], [address], 11/09/2024 23:16:46 11/19/19 25 11/18/2024 US, obste tric, follo w-up No observ ation record ed. [email or web address] [facility] [address] [facility], [place], [address], 11/24/2024 18:26:10 12/02/19 25 12/01/2024 US, obste tric, limit ed No observ ation record ed. [facility] [address], [place], [address], 12/01/2024 14:15:15 12/02/19 25 12/01/2024 US, obste tric, limit ed No observ ation record ed. [email or web address] [address] [facility], [place], [address], 12/02/2024 00:22:40 12/23/19 25 12/22/2024 US, obste tric, follo w-up No observ ation record ed. [email or web address] [facility] (Psychiatry Department) [address] [facility] [address], [place], [address], 12/24/2024 14:37:34 12/23/19 25 12/22/2024 US, obste tric, follo w-up No observ ation record ed. [email or web address] [facility] [address] [facility] [address], [place], [address], 12/24/2024 14:59:45 Result Notes None recorded. Problems Name Problem SNOMED Code Status Onset Date Resolution Date Notes Provider Name and Address Organization Details Recorded Time 78563580 Active 2024 Nicolasa finn, [place] - [facility] 17:02:16 Twin 67842479 Active [facility] referral Tracy finn [facility] 15:28:23 Twin 26340749 Active [facility] referral Tracy finn, [facility] 15:28:23 Problem Notes None recorded. Procedures Surgical History Date Name Laterality Status Provider Name and Address Organization Details Recorded Time 09/04/19 25 Date of Last Pap Smear completed Jeanne Love [facility] 10/14/2024 15:43:28 11/01/19 23 termination of completed Lisbet Montaño [facility] 12/31/2023 12:45:41 09/02/19 22 termination of completed Lisbet Montaño [facility] 12/31/2023 12:45:37 Imaging Results Imaging Date Name Status LastModified by Organization Details LastModified Time 10/14/2024 US, obstetric, transvaginal completed [email or web address] Robert Lee [address], [place], [address], 10/14/2024 17:42:55 10/14/2024 US, obstetric, transvaginal completed [email or web address] Kristyn [address], [place], [address], 10/15/2024 13:26:39 10/27/2024 US, obstetric, 1st trimester completed [email or web address] Robert Lee [address], [place], [address], 10/27/2024 13:48:35 10/27/2024 US, obstetric, 1st trimester completed [email or web address] Kristyn [address], [place], [address], 10/29/2024 00:20:41 11/03/2024 US, obstetric, nuchal translucency completed [email or web address] Robert Lee [address], [place], [address], 11/03/2024 17:15:02 11/03/2024 US, obstetric, nuchal translucency, additional gestation completed [email or web address] Robert Lee [address], [place], [address], 11/03/2024 17:15:11 11/03/2024 US, obstetric, nuchal translucency completed [email or web address] Kristyn [address], [place], [address], 11/05/2024 00:19:15 11/04/2024 US, obstetric, follow-up completed [address] [place], [address], 11/09/2024 23:16:46 11/18/2024 US, obstetric, follow-up completed [email or web address] [facility] [place] [place] [address] [place], [address], 11/24/2024 18:26:10 12/01/2024 US, obstetric, limited [email or web address] [address], [place], [address], 12/01/2024 14:15:15 12/01/2024 US, obstetric, limited completed [email or web address] Kristyn [address], [place], [address], 12/02/2024 00:22:40 12/22/2024 US, obstetric, follow-up completed [email or web address] [facility] (Psychiatry Department) [address] [email or web address] [address], [place], [address], 12/24/2024 14:37:34 12/22/2024 US, obstetric, follow-up completed [email or web address] [facility] [address] [facility] [facility] [address], [place], [address], 12/24/2024 14:59:45 Procedure Notes None recorded. Medical Equipment None [...] completed Not Available Not Available Not Available [employer] a 150 mg/mL intramuscul ar suspension [...] completed Not Available Not Available Not Available aspirin 81 mg chewable tablet active Not Available Not Available Not Available estradiol [...] completed Not Available Not Available Not Available nitrofurant oin monohydrate /macrocryst als 100 mg capsule TAKE 1 CAPSULE BY MOUTH EVERY 12 HOURS FOR 7 DAYS 12/30 completed Not Available Not Available Not Available CORRECTIONAL COOK-PNV-DHA 28 mg iron-1 mg-200 mg capsule Take 1 capsule every day by oral route as directed. 12/30 completed Not Available Not Available Not Available C-Carl DHA 28 mg iron-1 mg-200 mg capsule TAKE 1 CAPSULE BY MOUTH EVERY DAY DIRECTED active Not Available Not Available No t Available Vitamin 28 mg iron-800 mcg tablet Take 1 tablet by oral route. 12/30 completed Not Available Not Available Not Available Mayelin 0.25 mg-0.035 mg tablet TAKE 1 TABLET BY MOUTH EVERY DAY 12/30 completed Not Available Not Available Not Available Zafemy 150 mcg-35 mcg/24 hr transdermal patch 09/04 completed Not Available Not Available Not Available Vitals Date Recorded Body height Body mass index (BMI) Body weight Systolic blood pressure Diastolic blood pressure Provider Name and Address Organization Details Last Updated DateTime 11/03/2024 162.56 cm 19.9 kg/m2 67389.71 g 116 mm[Hg] 77 mm[Hg] Nicolasa Alanis [facility] 16:58:42 Date Recorded Body weight Body mass index (BMI) Body height Systolic blood pressure Diastolic blood pressure Provider Name and Address Organization Details Last Updated DateTime 12/01/2024 71121.67 677 g 20.8 kg/m2 162.56 cm 98 mm[Hg] 68 mm[Hg] [facility] 5 10:47:20 Date Recorded Body height Body mass index (BMI) Body weight Systolic blood pressure Diastolic blood pressure Provider Name and Address Organization Details Last Updated DateTime 12/15/2024 162.56 cm 21.6 kg/m2 78349.64 g 107 mm[Hg] 69 mm[Hg] [facility] 5 12:05:40 Date Recorded Body height Body mass index (BMI) Body weight Systolic blood pressure Diastolic blood pressure Provider Name and Address Organization Details Last Updated DateTime 12/30/2024 162.56 cm 22.8 kg/m2 06172.79 g 117 mm[Hg] 76 mm[Hg] Jeanne Love [facility] 10:50:56 Social History Question Answer Notes LastModified by Organizat ion Details LastModified Time Tobacco Smoking Status Never Smoker Lisbet Danyel finn, [facility] 12/31/2023 12:44:42 Do You Have An Advance Directive? No [email or web address] Information not available 09/04/2024 What Is Your Level Of Alcohol Consumption? None [email or web address] Information not available 10/14/2024 If You Are , What Was Your Level Of Alcohol Consumption Prior To ? Occasional [email or web address] Information not available 10/14/2024 How Many Years Have You Consumed Alcohol? 2 [email or web address] Information not available 10/14/2024 Are You Blind Or Do You Have Difficulty Seeing? No Information not available 12/31/2023 What Is Your Level Of Caffeine Consumption? None Information not available 12/31/2023 How Much Tobacco Do You Chew? None [email or web address] Information not available 09/04/2024 In The 14 [...] Or Vape? Former User Of Electronic Cigarettes [email or web address] Information not available 10/14/2024 What Is The Highest Grade Or Level Of School You Have Completed Or The Highest Degree You Have Received? 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 No Information not available 12/31/2023 Do You Use Protection During Sex? No Information not available 12/31/2023 Do You Use Your Seat Belt Or Car Seat Routinely? No Information not available 12/31/2023 Do You Have Smoke And Carbon Monoxide Detectors In Your Home? No [email or web address] Information not available 10/14/2024 How Much Tobacco Do You Smoke? No Information not available 12/31/2023 Do You Feel Stressed (tense, Restless, Nervous, Or Anxious, Or Unable To Sleep At Night)? [id number] Information not available 12/31/2023 Do You Use Any Illicit Or Recreational Drugs? No [email or web address] Information not available 10/14/2024 Do You Use Sunscreen Routinely? No Information not available 12/31/2023 Have You Used IV Drugs? No Information not available 12/31/2023 Do You Or Have You Ever Used Any Other Forms Of Tobacco Or Nicotine? Yes [email or web address] Information not available 10/14/2024 Sex: Unknown Functional [...] 03/19/2024 What is your exercise level? Occasional Information not available 10/14/2024 Mental Status None recorded. Family History Relationship Description Onset Age of this Age Resolved Age Notes LastModified by Organization Details LastModified Time Unspecified Relation Family history unknown [email or web address] Not available 10/03 15:28:13 Maternal Grandmother Malignant tumor of breast Not available 2023 12:44:25 Medical History Condition Response Allergies (Food, seasonal, environmental ) N Other N Breast Cancer N Drug/Latex Allergies/Reactions N Blood Transfusion N Dermatologic Disorders N Lung Disease N Defects or Inherited Disease N Breast Problem N Gestational Diabetes N Hematologic disorders N Anesthesia Complications N History of STI N Deep Vein Thrombosis N Polycystic ovary syndrome N Anxiety Disorder N Autoimmune disease N Arthritis N Infertility N Polyps N Acid Reflux (GERD) N History of abnormal pap N Cancer N Stroke N Varicosities N Neurologic/Epilepsy N Endometriosis N High Cholesterol N Headaches N Fibromyalgia N Kidney Disease N Heart Problems N Kidney or Bladder Problems N Thyroid Problems N GI Problems N Eating Disorder N Anemia N Art (IVF or FET) N Psychiatric Illness N Ovarian Cancer N Diabetes N Pulmonary (TB, Asthma) N Hepatitis/Liver Disease N No Past Medical History N Eczema N Urinary Tract Infection N Abuse/Domestic Violence N Asthma N Trauma/Violence N Depression/ depression N Heart Disease N Pre-Eclampsia N Hypertension N Osteoporosis N Thrombophilias N Gynecological History Statement/Question Response Date of [...] SNOMED-CT Code Diagnosis ICD10 Code Diagnosis Note [id number] [facility] [address] [address] 12/31/2023 12:32:02 12/31/2023 13:48:13 Urinary symptoms [id number] R39.9 Today I agreed to send abx for treatment and send testing (std, urine, vag screening) .Agreeable to plan of care. Counseled on medication R/B's, Most common side effects, & use. All questions were answered to patient satisfacti on. Health Hx was reviewed and updated as reported in chart.Ryan sentSTD sent+nitra christian on urine dip Time spent in visit is a total of 30 mins with at least 50% of visit consisting of counseling and review of plan of care. Vaginitis 73627413 N76.0 Dysuria 98617532 R30.0 Urine cx sent [id number] Tish Sal RONAL Robert Lee [address] [address] 03/19/2024 16:57:40 03/19/2024 17:34:50 Contraception care management 047849030 Z30.9 Discussed all control options in great [...] verbalized understand ing. Venereal d isease screening 532343199 Z11.3 Sexually t ransmitted infectious disease 6915228 A64 patient collected vaginitis and STI panel sentHIV/He p B&C/Syphil is testing ordered per pt requestsaf e sexual practices discussedv ulvar care bradford discussed Time spent in visit is a total of 30 mins with at least 50% of visit consisting of counseling and review of plan of care. [id number] Tish Sal RONAL Robert Lee [address] [address] 09/04/2024 12:10:23 09/04/2024 14:01:43 Gynecologic examination 79681951 Z01.419 WWEBC - declinedPa p - done [...] than 25 dietary consult advised. Questions answered. [id number] Devin Vasquez MD Robert Lee [address],[place] [address] 10/14/2024 15:27:59 10/14/2024 16:50:49 Dichorionic diamniotic twin 538116506 O30.049 Z3A.08 [id number] Rossy Baker [facility] [address],[place] [address] 10/14/2024 15:28:37 10/14/2024 17:11:18 Venereal disease screening 110416362 Z11.3 Twin 71150938 O30.009 Dichorioni c diamniotic twin 344559986 O30.049 test positive 440506654 Z32.01 [id number] Dvein Vasquez MD Robert Lee [address],[place] [address] 10/27/2024 10:49:11 10/27/2024 13:57:04 Threatened miscarriage 35964948 O20.0 O30.041 Z3A.10 [id number] Devin Vasquez MD Robert Lee [address],[place] [address] 11/03/2024 15:57:08 11/03/2024 17:11:20 screening 001803488 Z36.82 Z3A.11 [id number] SUSANNE BAKER MD Robert Lee [address],[place] [address] 11/03/2024 15:59:44 11/04/2024 10:22:08 Routine care 502543800 Z34.91 Twin 02692293 O30.009 - early outside US showed triplet with one vanishing triplet- US today demonstrat es thick dividing membrane between remaining two fetuses, however fetus B appears stuck within the membrane. Both fetuses have normal FHR, normal NT/NB. Concern for viability of fetus B given positive between two sacs- patient counseled on uncertaint y of significan ce of this finding and whether fetus B will continue to survive.- appointmen t with Danette [facility] 11/04 for further evaluation - pending MFM appointmen t will schedule follow up OB appointmen ts [id number] SUSANNE BAKER MD Robert Lee [address],[place] [address] 12/01/2024 10:29:55 12/01/2024 11:07:38 Monochorionic diamniotic twin 296215719 O30.009 - early outside US showed triplet with one vanishing triplet; now confirmed to by mono di twin from multiple MFM US- most recent US with Danette on 11/19 demonstrat es entrapped head of fetus A within uterine synechiae, unsure of possibilit y of spontaneou s resolution - scheduled for selective reduction of fetus A with [facility] on 12/11- continue routine care with MWC with [facility] for [facility] consultati on at this time- rtc 4 weeks Gestation period, 15 weeks [id number] Z3A.15 - continue pNV [id number] SUSANNE BAKER MD Robert Lee [address],[place] [address] 12/01/2024 11:08:45 12/01/2024 13:47:36 Diamniotic-monochorio rich twins 04803173 O30.032 Z3A.15 [id number] Devin Vasquez MD Robert Lee [address],[place] [address] 12/15/2024 11:47:35 12/15/2024 12:32:50 Urinary tract infectious disease 75551996 N39.0 [id number] Rossy Baker, [facility] [address],[place] [address] 12/30/2024 10:29:27 12/30/2024 11:41:15 History of urinary tract infection 7477594173 107 Z87.440 Gestation period, 19 weeks 52676780 Z3A.19 Health Concerns Section Related Observation LastModified by Organization Detai ls LastModified Time None Recorded Concern Status LastModified by Organization Details LastModified Time None Recorded Advance Directives Directive N: Payers Encounter Date Sequence Insurance Name Policy Number Policy Eli Covered Member ID Eli Member ID Guarantor Name 11/03/2024 1 [facility] ON OR AFTER 03/02/21 (MEDICAID REPLACEMENT - HMO) Tess Cortes [id number] Tess Cortes 12/01/2024 1 [facility] ON OR AFTER 03/02/21 (MEDICAID REPLACEMENT - HMO) Tess Cortes [id number] Tess Cortes 12/01/2024 1 [facility] ON OR AFTER 03/02/21 (MEDICAID REPLACEMENT - HMO) Tess Cortes [id number] Tess oCrtes 12/15/2024 1 [facility] ON OR AFTER 03/02/21 (MEDICAID REPLACEMENT - HMO) Tess Cortes [id number] Tess Cortes 12/30/2024 1 [facility] ON OR AFTER 03/02/21 (MEDICAID REPLACEMENT - HMO) Tess Cortes [id number] Tess Cortes OBGyn Episode Ob Episode Information Episode Created Date Number of Fetuses Patient Bloodtype Patient rh Status Prepregnancy Weight lbs Domestic Partner Domestic Partner Phone Father Name Dairy Farm Manager Status 11/04/19 25 2 A Positive 116 OPEN Fetus Data First Name Last Name Admitted to NICU Weight (g) Sex Living Outcome Pediatric Complications Fetus ID Race Codes Race Delivery Type [id number] Problems Problem Notes Problem Name Start Date End Date Resolution Snomed Code Not e Twin [id number] Kristen r dannielle Molina Brandan Calculation Initial Brandan Date Initial Exam Date Initial Exam Provider Initial Ultrasound Date Last Menstrual Period Date Ultra Sound Weeks Gestation 05/22/2025 11/03/2024 10/14/2024 08/15/2024 9 Eighteen To Twenty Week Brandan Update Ultra Sound Date Fundal Height At Umbil Quickening Date Ultra Sound Latest Weeks Gestation Final Brandan Confirmed By Final Brandan Confirmed Date Final Brandan Date Ultra Sound Latest Days Gestation 0 [email or web address] 11/05/2024 05/22/20 25 0 Pre- Flowsheet Flowsheet Date 11/03/2024 Mera Score Blood [...] Weight in lbs Pre/Post Dialysis Refused Weight 116.295401913058 BP Diastolic BP Location Tested BP Systolic BP Type 77 L arm 116 sitting Fetus Heart Rate Present Fetus Movement Comments Patient presents for new OB visit. Patient was seen previously at an outside clinic in early 1st trimester and was told she had a spontaneous triplet , however had a loss of one of the triplets. She has been followed closely by ultrasound. On US 1 week ago, a possible defect in the membrane between the two remaining fetuses was noted. Today on US, it appears as though fetus B is entrapped between the two sacs, with independent movement of the fetus's arms and legs. However, the fetus is not able to move further between the two sacs. Discussed this rare finding with patient. Currently both fetuses have +FHT and movement. NT/NB wnl x2. Patient has an appointment tomorrow with Danette [facility] for further evaluation of . Flowsheet Date 12/01/2024 Mera Score Blood Edema Fundus Height Fundus Units Glucose Ketones Leukocytes Nitrite Labor Signs Protein Cervic Dilation Cervic Effacement Cervic Station none Type Weight in lbs Pre/Post Dialysis Refused 121.198483364226 BP Diastolic BP Location Tested BP Systolic BP Type 68 98 Fetus Heart Rate Present Fetus Movement Comments Doing well, no bleeding or c ramping. LR female NIPT x2. Has been seen by Danette and [facility], plan for selective reduction of twin A due to entrapment in uterine synechiae. Procedure scheduled with [facility] for 12/11. Anatomy US scheduled with [facility] for 01/04. Continue routine care here, with high risk consultation with [facility]. Mood stable, coping well. US to follow for HR and reevaluation of synechiae. RTC 4 weeks. Flowsheet Date 12/01/2024 Mera Score Blood Edema Fundus Height Fundus Units Glucose Ketones Leukocytes Nitrite Labor Signs Protein Cervic Dilation Cervic Effacement Cervic Station Type Weight in lbs Pre/Post Dialysis Refused BP Diastolic BP Location Tested BP Systolic BP Type Fetus Heart Rate Present Fetus Movement Comments Flowsheet Date 12/15/2024 Mera Score Blood Edema Fundus Height Fundus Units Glucose Ketones Leukocytes Nitrite Labor Signs Protein Cervic Dilation Cervic Effacement Cervic Station Type Weight in lbs Pre/Post Dialysis Refused Weight 126.466053852749 BP Diastolic BP Location Tested BP Systolic BP Type 69 L arm 107 sitting Fetus Heart Rate Present Fetus Movement Comments Flowsheet Date 12/30/2024 Mera Score Blood Edema Fundus Height Fundus Units Glucose Ketones Leukocytes Nitrite Labor Signs Protein Cervic Dilation Cervic Effacement Cervic Station neg trace Type Weight in lbs Pre/Post Dialysis Refused Weight 133.080241361930 BP Diastolic BP Location Tested BP Systolic BP Type 76 117 Fetus Heart Rate Present A 145 Present B 136 Present Fetus Movement A No B No Comments Patient is having some swell ing. discussed pt for back pain, tens unit, unsure if feeling movement, has f/u at [facility] plan 4 week f/u here in office, precautions and education Menstrual History Last Menstrual Date Menses Monthly [...] Domestic Partner Domestic Partner Phone Father Name Dairy Farm Manager Status 12/31/19 24 1 CLOSED Fetus Data First Name Last Name Admitted to NICU Weight (g) Sex Living Outcome Pediatric Complications Fetus ID Race Codes Race Delivery Type , Induced 12254 Brandan Calculation Initial Brandan Date Initial Exam [...] Domestic Partner Domestic Partner Phone Father Name Dairy Farm Manager Status 12/31/19 24 1 CLOSED Fetus Data First Name Last Name Admitted to NICU Weight (g) Sex Living Outcome Pediatric Complications Fetus ID Race Codes Race Delivery Type , Induced 37458 Brandan Calculation Initial Brandan Date Initial Exam [...]
[2025-01-04 08:12] VITALS: BP 125/83; PULSE 84; RESP 18; TEMP 36.7; O2SAT 100
[2025-01-04 08:53] LABS: Add Urine Microscopic? NO; Appearance Urine Clear (Clear); Bilirubin Urine Negative (Negative); Blood Urine Negative (Negative); Color Urine Yellow (Yellow); Glucose Urine UA Negative (Negative); Ketones Urine Negative (Negative); Leukocyte Esterase Ur Negative LEU/UL (Negative); Nitrate Urine Negative (Negative); Protein Urine Negative (Negative); Specific Grav Ur 1.018 (1.001-1.035); Urobilinogen Urine 0.2 mg/dL (<2.0)
--- OUTSIDE RECORDS SUMMARY | 2025-01-04 09:03 | XMS_ITS | Referral Summary ---
Author Organization [place] [id number] [facility] Address [address] [place] [address] Care Team Providers Care Certified Orthotic Fitter Name Role Phone No, Physician Primary Care Provider [phone] Nicci Patrick MD Unavailable Dontrell Rizo MD Unavailable [phone] Encounters Date Type Department Care Team Description 12/22/2024 11:00 AM CDT Office Visit [facility] Maternal- Medicine [address] [facility] 7th Floor [address] [place] [address] Club foot, , affecting care of mother, antepartum, fetus 1 (Primary Dx); Monochorionic diamniotic twin in second trimester; Supervision of high-risk , second trimester; Uterine synechiae 12/22/2024 9:57 AM CDT - 12/22/2024 11:59 PM CDT Hospital Encounter [facility] - Ultrasound [address] [facility], 7th Floor, [address] [facility] [place] [address] Monochorionic diamniotic twin in second trimester; Uterine synechiae Discharge Disposition: Discharge to home or self care 12/10/2024 3:30 PM CDT Office Visit [facility] Obstetrics and Gynecology [facility] [facility] 7th Floor [address] [place] [address] Uterine synechiae (Primary Dx); Club foot, , affecting care of mother, antepartum, fetus 1; Monochorionic diamniotic twin in second trimester; Supervision of high-risk , second trimester 12/10/2024 2:00 PM CDT - 12/10/2024 11:59 PM CDT Hospital Encounter [facility] - Ultrasound [facility], 7th Floor, [address] [place] [address] Monochorionic diamniotic twin gestation in second trimester; abnormality affecting management of mother, antepartum, single or unspecified fetus; Uterine synechiae Discharge Disposition: Discharge to home or self care 12/03/2024 Telephone [facility] M[facility]- Medicine [address] [place] [address] 7th Floor [address] [place] [address] Emy Horn RN Ultrasound report 11/19/2024 Orders Only [facility] Obstetrics and Gynecology [address] [place] [address] 7th Floor [address] [place] [address] Rossy Pinedo, FELIZ Supervision of high-risk , second trimester (Primary Dx) 11/12/2024 1:30 PM CDT Office Visit [facility] Obstetrics and Gynecology [address] [place] [address] 7th Floor [address] [place] [address] Monochorionic diamniotic twin gestation in second trimester (Primary Dx); Supervision of high-risk , second trimester; Uterine synechiae; Screening for depression [Z13.31] 11/12/2024 11:54 AM CDT - 11/12/2024 11:59 PM CDT Hospital Encounter [facility] - Ultrasound [address] [place] [address], 7th Floor, [address] [place] [address] Twin , antepartum, unspecified multiple gestation type [...] testing at 32 weeks [] Delivery by [id number] (prefer [id number]) Supervision of high-risk , second trime ster 11/09/2024 Overview (12/22/2024): [x] Full MFM Care- as of 12/22/2024 per pts request [x] Blue Team Referring Provider: Nicci Patrick [phone] Primary OB: Devin Vasquez [phone] [] or Medicare Insurance [x] Dating Criteria: [...] [] MOC: [] Method of feeding: [] Asbestos Siding Installer (specifically which provider): [] PP Depression Discussed: [...] on file Legal Sex Female 8:41 PM CLINICAL CARE COORDINATOR Gender Identity Not on file Sexual Orientation [...] Final Result from Last 3 Months Insurance [id number] [place] [address] Member Subscriber Plan / Payer (Ef fective 2021-Present) Name:Tess Cortes Relation to Subscriber:Self Name:Tess Cortes Payer ID:[id number] (NAIC) Group ID:Not on file Type:MEDICAID RISK OTHER Address: ATTN: CLAIMS DEPT [address] [place] [phone] [facility] Member Subscriber Plan / Payer (Ef fective 2021-Present) Name:Malcolm Cortesliset Malik Relation to Subscriber:Self Name:SebastianMalcolmliset Malik Payer ID:[id number] (NAIC) Group ID:Not on file Type:MEDICAID RISK OTHER Address: ATTN: CLAIMS DEPT [address] [facility] [place] [phone] [facility] Member Subscriber Plan / Payer (Ef fective 2021-Present) Name:Sebastian Tess R Relation to Subscriber:Self Name:Tess Cortes [place] Payer ID:[id number] (NAIC) Group ID:Not on file Type:MEDICAID RISK OTHER Address: ATTN: CLAIMS DEPT [address] [facility] [place] [phone] [facility] Care Teams Certified Orthotic Fitter Relationship Specialty Start Date End Date No, Physician PCP - General 11/05/24 Nicci Patrick MD [address] [facility] [address] [place] [id number] Referring Physician Obstetrics and Gynecology 11/05/24 Dontrell Rizo MD [address] [place], [place] [id number] Obstetrics and Gynecology 11/06/24
--- OUTSIDE RECORDS SUMMARY | 2025-01-04 09:03 | XMS_ITS | Clinical Summary ---
Author Organization [facility] Address [address] [place] [address] Phone Care Team Providers Care Drum Handler Name Role Phone Unavailable Primary Care Provider [...] Type Department Care Team Description 12/10/[address] [facility] Maternal and Medicine [place] [address] [place] [address] Desiree Bosch RN Care Team 12/08/2024 Telephone [facility] Maternal and Ground Floor [facility] [address] [place] [address] Ania De Jesus RN Question 11/25/2024 Telephone [facility] Genetic Counseling [address] [place] [address] Farshad Dougherty, CGC Results 11/18/2024 9:[address] [facility] Maternal and Medicine [place] [address] [place] [address] Sebastian Fletcher MD Twin gestation, unable to determine number of placenta and number of amniotic sacs in first trimester (Primary Dx); Abnormal ultrasound 11/18/2024 8:11 AM CDT - 11/18/2024 11:59 PM CDT Hospital Encounter [facility] Genetic Counseling [address] [place] [address] Nicci Patrick MD Pavalko, Porter E, CGC Discharge Disposition: Home or Self Care 11/18/2024 8:00 AM CDT - 11/18/2024 11:59 PM CDT Hospital Encounter [facility] Maternal and Ground Floor [facility] [address] [facility] [place] [address] Nicci Patrick MD Discharge Disposition: Home or Self Care 11/18/2024 Telephone [facility] Genetic Counseling [address] [place] [address] Farshad Dougherty, CGC Advice Only 11/13/2024 Telephone [facility] Genetic Counseling [address] [place] [address] Farshad Dougherty, CGC Advice Only; Results 11/12/[address] [facility] Maternal and Medicine - Medical [place] [address] [place] [address] Abby Quiñonez 11/11/2024 External Device Data STL ABSTRACTION Provider, Abstract 11/10/2024 External Device Data ST[place] ABSTRACTION Provider, Abstract 11/09/2024 External Device Data [place] ABSTRACTION Provider, Abstract 11/07/2024 External Device Data ST[place] ABSTRACTION Provider, Abstract 11/06/2024 External Device Data STL ABSTRACTION Provider, Abstract 11/05/2024 Telephone [facility] Genetic Counseling [address] [address] Farshad Dougherty, CGC Advice Only 11/04/2024 4:30 PM POLICE RADIO DISPATCHER - 11/04/2024 11:59 PM POLICE RADIO DISPATCHER Hospital Encounter [facility] Genetic Counseling [address] [address] Farshad Dougherty, CGC Discharge Disposition: Home or Self Care 11/04/2024 3:00 PM POLICE RADIO DISPATCHER Initial [facility] Maternal and Medicine [place] [address] [place] [address] Nicci Patrick MD Twin gestation, unable to determine number of placenta and number of amniotic sacs in first trimester (Primary Dx); Abnormal ultrasound 11/04/2024 2:14 PM POLICE RADIO DISPATCHER - 11/04/2024 11:59 PM POLICE RADIO DISPATCHER Hospital Encounter [facility] Maternal and Ground Floor [place] [address] [place] [address] Susanne Baker MD Discharge Disposition: Home or Self Care 10/30/2024 Orders Only [facility] Maternal and Ground Floor [place] [address] [place] [address] Susanne Baker MD Abnormal ultrasonic [...] WKS SINGLE GEST Routine 11/04/2024 3:38 PM POLICE RADIO DISPATCHER Abnormal ultrasonic finding on screening of mother [...] HARRIS Study Date: 11/18/2024 8:13am Pat. NO: [id number] Referring MD: SUSANNE BAKER MD Site: [facility] Centrifugal Wax Molder: Shanta Oro RDMS : 2005 Age: 19 ----- INDICATION ----- Twin , Monochorionic/Diamniotic (Beckham/Di) Abnormal Finding on Previous Ultrasound CODING ----- Diagnoses Z3A.13: Weeks of gestation O30.091: Twin , unable to determine number of placenta and number of amniotic sacs O28.3: Abnormal ultrasonic finding on screening of mother Procedures 61782: Ultrasound, uterus, real time with image documentation, and maternal evaluation, first trimester (< 14 weeks 0 days), transabdominal approach; single or first gestation 60802: Ultrasound, uterus, real time with image documentation 99241: Ultrasound, uterus, real time with image documentation, [...] and date of were confirmed by the loop tender prior to the exam. Bekah Erazo was present for the transvaginal ultrasound and served as a swatch clerk. IMPRESSION ----- Follow-up ultrasound and care consult [...] was previously counseled regarding these findings at [facility] care center. Options of total termination or selective termination of twin A was offered. Given the confirmation of findings today, patient is likely to proceed with selective termination of twin A. I spoke with Dr. Cross at [facility]. Staff from their center will reach out to the patient to schedule procedure after 16 weeks gestation. Patient did express a desire to follow-up with an ultrasound here at 20 weeks. We scheduled a detailed anatomic survey at 20 weeks gestation. I informed the patient that because she has [place] Medicaid, she will not be able to deliver at [facility]. Procedure Note Sebastian Fletcher MD - 11/18/2024 STL 1ST TRIMESTER >10 ----- Pat. Name:Briseyda HARRIS Date:11/18/2024 8:13am Pat. NO: [id number] MD:SUSANNE BAKER MD [facility]:Shanta Oro RDMS :2005Age:19 ----- INDICATION ----- Twin , Monochorionic/Diamniotic (Beckham/Di) Abnormal Finding on Previous Ultrasound CODING ----- Diagnoses Z3A.13: Weeks of gestation O30.091: Twin , unable to determinenumber of placenta and number of amniotic sacs O28.3: Abnormal ultrasonic finding on antenatalscreening of mother Procedures 48273: Ultrasound, uterus, real time withimage documentation, and maternal evaluation, first trimester (< 14 weeks 0 days),transabdominal approach; single or first gestation 28257: Ultrasound, uterus, real time withimage documentation 42808: Ultrasound, uterus, real time withimage documentation, and maternal evaluation, first trimester (< 14 weeks 0 days),transabdominal approach; each additional gestation METHOD ----- Transabdominal and transvaginal ultrasound examination ----- Twin . Number of fetuses: 2. Monochorionic-monoamniotic DATING ----- GA by prior [id number] w + 4 d BERNADINE by prior [...] and date of were confirmed by the loop tender priorto the exam. Bekah Erazo was present [...] was previously counseled regarding these findings at [facility]. Options of total termination or selective termination of twin A was offered. Given theconfirmation of findings today, patient is likely to proceed with selective termination of twin A. [facility] their [facility] will reach out to the patient to schedule procedure after 16 weeks gestation. Patient did express a desire to follow-up with an ultrasound here at 20weeks. We scheduled a detailed anatomic survey at 20 weeks gestation. I informed the [place] that [place], she will not be able to deliver at [facility]. us Nicci Patrick MD ORDERABLES Final Resul t from Last 3 Months Insurance [id number] MEDICAID
--- OUTSIDE RECORDS SUMMARY | 2025-01-04 09:03 | XMS_ITS | Clinical Summary ---
Author Organization [id number] [facility] Address [address] [place] [address] Care Team Providers Care Microsoft Solutions Architect Name Role Phone No, Physician Primary Care Provider [phone] Nicci Patrick MD Unavailable Dontrell Rizo MD Unavailable [phone] Allergies Active Allergy Reactions Criticality Noted Date [...] testing at 32 weeks [] Delivery by [id number] (prefer [id number]) Supervision of high-risk , second trime ster 11/09/2024 Overview (12/22/2024): [x] Full MFM Care- as of 12/22/2024 per pts request [x] Blue Team Referring Provider: Nicci Patrick [phone] Primary OB: Devin Vasquez [phone] [] or Medicare Insurance [x] Dating Criteria: [...] [] MOC: [] Method of feeding: [] Partition Notcher (specifically which provider): [] PP Depression Discussed: [...] Description 12/22/2024 11:00 AM CDT Office Visit [facility] Maternal- Medicine [facility] [facility] 7th [address] [place] [address] Club foot, , affecting care of mother, antepartum, fetus 1 (Primary Dx); Monochorionic diamniotic twin in second trimester; Supervision of high-risk , second trimester; Uterine synechiae 12/22/2024 9:57 AM CDT - 12/22/2024 11:59 PM CDT Hospital Encounter [facility] - Ultrasound [address], 7th [address], [address] [facility] [place] [address] Monochorionic diamniotic twin in second trimester; Uterine synechiae Discharge Disposition: Discharge to home or self care 12/10/2024 3:30 PM CDT Office Visit [facility] Obstetrics and Gynecology [facility] [facility] 7[address] [place] [address] Uterine synechiae (Primary Dx); Club foot, , affecting care of mother, antepartum, fetus 1; Monochorionic diamniotic twin in second trimester; Supervision of high-risk , second trimester 12/10/2024 2:00 PM CDT - 12/10/2024 11:59 PM CDT Hospital Encounter [facility] - Ultrasound [address], 7th Floor, [address] [place] [address] Monochorionic diamniotic twin gestation in second trimester; abnormality affecting management of mother, antepartum, single or unspecified fetus; Uterine synechiae Discharge Disposition: Discharge to home or self care 12/03/2024 Telephone [facility] Maternal- Medicine [address] [facility] 7th [address] [place] [address] Emy Horn, RN Ultrasound report 11/19/2024 Orders Only [facility] Obstetrics and Gynecology [address] [place] [address] 7th Floor [address] [place] [address] Rossy Pinedo, FELIZ Supervision of high-risk , second trimester (Primary Dx) 11/12/2024 1:30 PM CDT Office Visit [facility] Obstetrics and Gynecology [address] [place] [address] 7th Floor [address] [place] [address] Monochorionic diamniotic twin gestation in second trimester (Primary Dx); Supervision of high-risk , second trimester; Uterine synechiae; Screening for depression [Z13.31] 11/12/2024 11:54 AM CDT - 11/12/2024 11:59 PM CDT Hospital Encounter [facility] - Ultrasound [address] [place] [address], 7th Floor, [address] [place] [address] Twin , antepartum, unspecified multiple gestation type [...] on file 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 Desires full FELIPE to [facility] to help limited appts. Objective: BP 113/73 Pulse 87 Ht 162.6 cm (5' 4 ) Wt 132 lb (59.9 kg) LMP 08/15/2024 SpO2 100% BMI 22.66 kg/m General: NAD Abdomen: Soft, gravid, NT, FHR +x2 Ultrasound: normal dopplers/normal fluid- see finalized US report Assessment/Plan: Tess oCrtes is a 19 y.o. at 18w3d with [...] testing at 32 weeks [] Delivery by [id number] (prefer [id number]) Supervision of high-risk , second trimester Overview [x] Full MFM Care- as of 12/22/2024 per pts request [x] Blue Team Referring Provider: Nicci Patrick [phone] Primary OB: Devin Vasquez [phone] [] Lyst or Medicare Insurance [x] Dating Criteria: LMP [...] [] MOC: [] Method of feeding: [] Partition Notcher (specifically which provider): [] PP Depression Discussed: [...] not hesitate to contact our office. Sincerely, DANETTE Hernández Cosigned by Kenia Sanchez MD at [...] need to transfer her MFM care from [facility] to us so we will plan [...] reasons. She is hoping to deliver at [place] which may be possible depending the course [...] testing at 32 weeks [] Delivery by [id number] (prefer [id number]) Supervision of high-risk , second trimester Overview [] OB consult only, [x] Co-management vs. [] Full [facility] Care; [] Red Team [x] Blue Team Referring Provider: Nicci Patrick [phone] Primary OB: Devin Vasquez [phone] [] or Medicare Insurance [x] Dating Criteria: [...] [] MOC: [] Method of feeding: [] Partition Notcher (specifically which provider): [] PP Depression Discussed: [...] separately billable services. 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 Delivery is recommended [id number] in uncomplicated pregnancies, our practice is usually [...] can be accessed in other states like [place] or [place]. The [place] Informed Consent booklet was offered, [...] Maternal- Medicine Department of Obstetrics and Gynecology [facility] 11/13/2024 Cosigned by Shruthi Cross MD at [...] Final Result from Last 3 [place] [address] [facility] [phone] [facility] [place] [place] [address] [facility] [place] [address] [facility] Care Teams Microsoft Solutions Architect Relationship Specialty Start Date End Date No, Physician PCP - General 11/05/24 Nicci Patrick MD [address] [address] [place] [address] Referring Physician Obstetrics and Gynecology 11/05/24 Dontrell Rizo MD [address] [place] [address] Obstetrics and Gynecology 11/06/24
--- NOTE | 2025-01-04 09:20 | ED.BACK ---
HPI - Back Pain/Injury General Chief Complaint: Back Pain/Injury Stated Complaint: back pain recent UTI, 20 wks Time Seen by Provider: 01/04/25 08:22 History of Present Illness HPI Narrative: 19-year-old female at approximately 20 weeks gestation with twin presenting with back pain. States she woke up in the middle of the night with some left lower back pain that then shoots down her leg. Certain movements and positions seem to make it worse. She was recently treated for a UTI wants to make sure that this has resolved. Denies fevers, saddle anesthesia, numbness or weakness, bladder or bowel incontinence. Denies recent trauma. Follows at [place] for her . Related Data Allergies Allergy/AdvReac Type Severity Reaction Status Date / Time No Known Allergies Allergy Verified 01/04/25 08:23 Review of Systems Review of Systems: All systems reviewed & are unremarkable except as noted in HPI and below PMFSH Past Medical History Medical History No active medical problems Exam Narrative: GENERAL: Well-appearing, well-nourished, and in no acute distress. HEAD: Normocephalic, atraumatic. EYES: PERRLA and EOMI. ENT: Mucous membranes moist. NECK: Supple. CHEST: No respiratory distress. HEART: Regular rate and rhythm ABDOMEN: Soft, appropriately gravid EXTREMITIES: Normal range of motion. No edema. BACK: mild paraspinal tenderness left lumbar spine; no midline tenderness SKIN: Warm, dry, no rash. NEURO: No focal deficits. Alert and oriented x3. 5/5 strength in all extremities, normal gait PSYCH: Normal mood and affect. Course Vital Signs Vital signs: Vital Signs Temperature 98.0 F 01/04/25 08:12 Pulse Rate 84 01/04/25 08:12 Respiratory Rate 18 01/04/25 08:12 Blood Pressure 125/83 01/04/25 08:12 Pulse Oximetry 100 01/04/25 08:12 Oxygen Delivery Room Air 01/04/25 08:12 Temperature 98.0 F 01/04/25 08:12 Pulse Rate 84 01/04/25 08:12 Respiratory Rate 18 01/04/25 08:12 Blood Pressure 125/83 01/04/25 08:12 Pulse Oximetry 100 01/04/25 08:12 Oxygen Delivery Room Air 01/04/25 08:12 MDM - Back Pain/Injury MDM Narrative Medical decision making narrative: 19-year-old female presenting with lower back pain that shoots down her leg. Exam remarkable for the above. She is neurologically intact. UA is unremarkable. No evidence of infection. Exam and history are lower back pain with radicular symptoms. No red flag symptoms. Recommend tylenol q6 hours and will do a short prednisone burst. Pt has already reached out to her OB - advised she f/u closely with them. She's agreeable with this plan. Discharged in stable condition. Differential Diagnosis Differential diagnosis: Likely lumbar radiculopathy, sciatica and strain of lumbar region Medical Records Attestation: I reviewed the patient's medical records. Lab Data Labs: Lab Results 01/04/25 Range/Units 08:44 Urine Color Yellow (Yellow) Urine Appearance Clear (Clear) Urine pH 7.0 (5.0-9.0) Ur Specific [place] 1.018 (1.001-1.035) Urine Protein Negative (Negative) mg/dL Urine Glucose (UA) Negative (Negative) mg/dL Urine Ketones Negative (Negative) mg/dL Ur Blood (Man) Negative (Negative) Urine Nitrate Negative (Negative) Urine Bilirubin Negative (Negative) Urine Urobilinogen 0.2 (<2.0) mg/dL Leukocyte Esterase Rfl Negative (Negative) YUAN/UL Critical Care Time Critical Care Time Critical Care Time: No Discharge Plan Discharge Clinical Impression: Sciatica Patient Disposition: Home Condition: Stable Instructions: Antibiotic Form, Sciatica (ED) Additional Instructions: Please take 650mg of tylenol every 6 hours for pain control. Please complete the steroids as prescribed and follow-up closely with your OB. If your symptoms worsen or other concerning symptoms arise, please return to the ER. Patient Language: Moldovan Prescriptions: New prednisone 10 mg tablet 10 mg PO DAILY Qty: 5 0RF No Action polymyxin B sulf-trimethoprim 10,000 unit- 1 mg/mL drops 1 drp LEFT EYE Q3H 7 Days Qty: 10 0RF Rx Instructions: while awake; do not exceed 6 doses in 24 hours erythromycin 5 mg/gram (0.5 %) ointment 0.5 inch EACH EYE TID 5 Days Qty: 50 0RF metoclopramide HCl [Reglan] 10 mg tablet 10 mg PO Q6H PRN (Reason: nausea and vomiting) Qty: 20 0RF Follow-up/Referrals: PHYSICIAN,OUTSIDE MACHINIST HELPER [Primary Care Provider] -
== END 2025-01-04 09:41 | disposition home or self-care (01) ==
PROVIDERS: Emergency Provider Emergency Medicine; Referring Provider Obstetrics & Gynecology
DX: O26.892 Other specified pregnancy related conditions, second trimester (principal); M54.30 Sciatica, unspecified side; O30.002 Twin pregnancy, unspecified number of placenta and unspecified number of amniotic sacs, second trimester; Z3A.20 20 weeks gestation of pregnancy
CPT/HCPCS: 81003; 99283

== ENCOUNTER 2025-03-20 08:18 | Emergency (ER) | payer OTHER, SELFPAY ==
[2025-03-20 08:25] VITALS: BP 138/87; PULSE 88; RESP 16; TEMP 37.1; O2SAT 100
--- NOTE | 2025-03-20 09:05 | ED.SKABFB ---
HPI - Skin/Abscess/Foreign Bdy General Chief complaint: Skin/Abscess/Foreign Body Stated complaint: personal Time Seen by Provider: 03/20/25 08:45 Source: patient and RN notes reviewed Mode of arrival: ambulatory Limitations: no limitations History of Present Illness HPI narrative: 19-year-old female presents Express Care complaining of rectal pain. Patient says she has a hemorrhoid that is been there for a while states over the last 2 days she has notice a worsening lump and pain to her anus. Patient is unsure if it is the hemorrhoid or something else going on. Patient recently had a miscarriage. Patient takes MiraLax daily to help with constipation. Patient denies any changes in her bowel habits, bloody stools, abdominal pain, nausea diarrhea, or any other symptoms. Patient has been trying hydrocortisone cream without any relief. Patient denies any concerns for STDs. Related Data Home Medications ?Medication ?Instructions ?Recorded ?Confirmed ?Last Taken ?Type No Home Medications 03/20/25 03/20/25 Unknown History Allergies Allergy/AdvReac Type Severity Reaction Status Date / Time No Known Allergies Allergy Verified 01/04/25 08:23 Review of Systems Review of Systems: CONSTITUTIONAL: Denies fever, chills, or sweats. EYES: Denies visual changes, redness, or discharge. ENT: Denies rhinorrhea, congestion, sore throat, or otalgia. CARDIOVASCULAR: Denies chest pain, palpitations, or edema. RESPIRATORY: Denies cough or dyspnea. GASTROINTESTINAL: Denies abdominal pain, nausea, bloody stools, vomiting blood, vomiting, or diarrhea. Positive for rectal pain. GENITOURINARY: Denies dysuria or hematuria. SKIN: Denies rash or itching. MUSCULOSKELETAL: Denies back pain, joint pain, or myalgia. NEUROLOGIC: Denies headache, numbness, or weakness. PSYCHIATRIC: Denies anxiety or depression. All other systems reviewed are negative, except as documented in HPI. PMFSH Past Medical History Medical History No active medical problems Comments At the time of my signature, I reviewed and agree with the nursing past medical, surgical, social, and family history. There is no relevant family history pertinent to the patient complaint. Exam Narrative: GENERAL: This is a well-nourished, well-developed adult, in no apparent distress. They are non ill-appearing, nontoxic appearing. HEAD: normocephalic, atraumatic. EYES: Sclera clear/white. Conjunctiva normal. Vision is grossly intact. Extraocular movements intact EARS: External ears normal, NOSE: External nose normal THROAT: Mucous membranes moist, NECK: Neck supple, CARDIOVASCULAR: Regular rate and rhythm RESPIRATORY: Respiratory rate normal, respiratory effort nonlabored, no respiratory distress PERINEUM: Anus: Large External hemorrhoid present. No area of fluctuance, no induration, no redness or swelling. No discharge. SKIN: warm, Dry, intact with no suspicious lesions or rash, good texture and turgor. NEURO: awake, alert, and oriented to person, place and time. There were no obvious focal neurologic abnormalities. EXTREMITIES: No joint tenderness, effusion, or edema noted. Course Course Emergency Course: Portions of this record may have been created with voice recognition software Level of Care: Express Care Visit Vital Signs Vital signs: Vital Signs Temperature 98.7 F 03/20/25 08:25 Pulse Rate 88 03/20/25 08:25 Respiratory Rate 16 03/20/25 08:25 Blood Pressure 138/87 03/20/25 08:25 Pulse Oximetry 100 03/20/25 08:25 Oxygen Delivery Room Air 03/20/25 08:25 Temperature 98.7 F 03/20/25 08:25 Pulse Rate 88 03/20/25 08:25 Respiratory Rate 16 03/20/25 08:25 Blood Pressure 138/87 03/20/25 08:25 Pulse Oximetry 100 03/20/25 08:25 Oxygen Delivery Room Air 03/20/25 08:25 Reviewed MDM - Skin/Abscess/Foreign Bdy MDM Narrative Medical decision making narrative: Pallavi PIPER pest control service technician in room during physical exam. Patient likely hemorrhoid that is prolapsed. Will refer patient to GI for further evaluation and management. Recommend patient use an [id number] preparation H in the meantime to help with swelling and discomfort. No evidence of infection or abscess formation. Discussed physical exam findings. Advised supportive measures and signs/symptoms to go to the ER. Pt is appropriate for outpt treatment and f/u. Differential Diagnosis Differential diagnosis: Likely other (Hemorrhoid, perirectal abscess, STD, anal fissure, anal fistula) Critical Care Time Critical Care Time Critical Care Time: No Discharge Plan Discharge Clinical Impression: Acute hemorrhoid Patient Disposition: Home Condition: Stable Instructions: Antibiotic Form, Hemorrhoids (ED) Additional Instructions: You may apply preparation H to the hemorrhoid 4 times a day for up to 2 weeks. Preparation H contains phenylephrine which helps shrink the hemorrhoid. If you have issues with constipation, take MiraLax or other stool softeners to help avoid straining during a bowel movement. Drink plenty of fluids increase her fiber intake. Follow-up with your PCP in 3-5 days. Me see GI specialist for further evaluation management of your hemorrhage. Please go to the ER if you develops any black tarry stools, abdominal pain, fevers, and nausea, vomiting, any other concerns. Patient Language: German Prescriptions: No Action No Home Medications Follow-up/Referrals: PHYSICIAN,RADIO INSTALLER [employer]LE [Primary Care Provider] - Cuba Talbert MD [Physician] - Time of Disposition: 09:01
== END 2025-03-20 09:12 | disposition home or self-care (01) ==
DX: K64.9 Unspecified hemorrhoids (principal)
CPT/HCPCS: 99211; G0463

== ENCOUNTER 2025-05-30 10:54 | Emergency (ER) | payer OTHER, SELFPAY ==
[2025-05-30 11:04] VITALS: BP 123/76; PULSE 84; RESP 16; TEMP 36.6; O2SAT 100
--- NOTE | 2025-05-30 11:23 | ED_ITS ---
HPI - Female Genitourinary General Chief complaint: Urogenital-Female Stated complaint: STD Time Seen by Provider: 05/30/25 11:15 Source: patient, RN notes reviewed and old records reviewed Mode of arrival: ambulatory Limitations: no limitations History of Present Illness HPI Narrative: 20 year old female who presents to express care with complaints of malodorous white vaginal discharge and urinary hesitancy with some lower abdominal cramping for the past week. Patient reports that last menses was May 17- is not on any control. Patient reports that she did have sexual intercourse yesterday and it was painful.Patient had twins at 22 weeks in December that did not survive states she had cervical insufficiency Patient reports that she follows with provider at [facility]. Patient reports no fevers or chills MD elicited complaint: other (white odorous discharge, urinary hesitancy pain with intercourse and lower abdominal cramping) Onset (ago): week(s) (1) Severity: mild Quality of pain: cramping Vaginal discharge: white and other (odorous) Vaginal bleeding: none Related Data Allergies Allergy/AdvReac Type Severity Reaction Status Date / Time No Known Allergies Allergy Verified 05/30/25 11:13 Review of Systems Review of Systems: CONSTITUTIONAL: Denies fever, chills, or sweats. CARDIOVASCULAR: Denies chest pain, palpitations, or edema. RESPIRATORY: Denies cough or dyspnea. GASTROINTESTINAL: reports lower abdomen cramping intermittent, no nausea, vomiting, or diarrhea. GENITOURINARY: Reports no dysuria, frequency, urgency, states hesitancy. Denies flank pain or hematuria.report white odorous discharge and painful intercourse yesterday SKIN: Denies rash or itching. MUSCULOSKELETAL: Denies back pain or myalgia. Denies CVA tenderness NEUROLOGIC: Denies headache All systems reviewed & are unremarkable except as noted in HPI and below PMFSH Past Medical History Medical History Acute hemorrhoid Uterine cervical insufficiency during delivered twins at 22 weeks babies did not survive No active medical problems Social History Social History Smoking status: Current every day smoker Tobacco type: cigarettes Alcohol intake: unknown Substance use: unknown Gender identity (if verbalized by the patient): Female Comments At time of signature, agree with nursing past medical, surgical, social and family history. There is no relevant family history pertinent to the presenting complaint Exam Narrative: GENERAL: Well-appearing, well-nourished, and in no acute distress. HEAD: Normocephalic, atraumatic. NECK: Supple. no lymphadenopathy CHEST: Clear to auscultation. No respiratory distress.SAO2 100% on room air HEART: Regular rate and rhythm. No murmur heard. Normal peripheral pulses. ABDOMEN: Soft, nontender to palpation, no McBurney point tenderness or pain over bladder, nondistended, normal active bowel sounds. No CVA tenderness, reports odorous vaginal discharge and some urinary hesitancy EXTREMITIES: Normal range of motion. No edema. SKIN: Warm, dry, no rash. NEURO: No focal deficits. Alert and oriented x3. Course Course Emergency Course: Patient is aware of diagnosis, understands and agrees to treatment plan.? Anticipatory guidance given.? Patient agrees to follow-up as directed and is aware of reasons to seek care at the emergency department. Portions of this record may have been created with voice recognition software Level of Care: Express Care Visit Vital Signs Vital signs: Vital Signs Temperature 36.6 C 05/30/25 11:04 Pulse Rate 84 05/30/25 11:04 Respiratory Rate 16 05/30/25 11:04 Blood Pressure 123/76 05/30/25 11:04 Pulse Oximetry 100 05/30/25 11:04 Oxygen Delivery Room Air 05/30/25 11:04 Temperature 36.6 C 05/30/25 11:04 Pulse Rate 84 05/30/25 11:04 Respiratory Rate 16 05/30/25 11:04 Blood Pressure 123/76 05/30/25 11:04 Pulse Oximetry 100 05/30/25 11:04 Oxygen Delivery Room Air 05/30/25 11:04 MDM - Female Genitourinary MDM Narrative Medical decision making narrative: Exam findings and UA show no acute concerns or changes; patient is non-toxic appearing and is in no distress.? Patient is appropriate for outpatient treatment and follow-up. Differential Diagnosis Differential diagnosis: Likely urinary tract infection, bacterial vaginosis, cystitis and other (concern for STD exposure,) Medical Records Attestation: I reviewed the patient's medical records. Lab Data Attestation: I reviewed the patient's lab results. Lab results narrative: urine dip see report, STD urine sent and also BV swab Labs: Lab Results 05/30/25 05/30/25 Range/Units 11:24 11:28 POC Urine Color Dark POC Urine Clarity Clear POC Urine pH 6.0 POC Ur Specif [place] 1.030 POC Urine Protein 1+ (Negative) POC Ur Glucose (UA) Negative (Negative) POC Urine Ketones 4+ (Negative) POC Urine Blood Negative (Negative) POC Urine Nitrite Negative (Negative) POC Urine Bilirubin 1+ (Negative) POC Urine Urobilinogen 1.0 POC U Leukocyte Esteras Negative (Negative) POC Urine HCG, Qual Negative (Negative) C. trachomatis (PCR) Not detected (NOT DETECTE) N. gonorrhoeae (PCR) Not detected (NOT DETECTE) T. vaginalis (PCR) Detected A (NOT DETECTE) reviewed Critical Care Time Critical Care Time Critical Care Time: No Discharge Plan Discharge Clinical Impression: Concern about STD in female without diagnosis, BV (bacterial vaginosis) Patient Disposition: Home Condition: Stable Instructions: Bacterial Vaginosis (ED), Sexually Transmitted Diseases (ED) Additional Instructions: Urine for GC and chlamydia and Trichomonas sent also BV swaB You will be notified with test results as soon as available Flagyl as prescribed absolutely no alcohol while taking this medication Please follow-up with OBGYN for further evaluation Increase your oral fluids Abstain from sexual intercourse until test results have been obtained and if positive readings abstain for 2 weeks after medication completed If your symptoms persist, change or worsen significantly before you can contact your personal physician then please, without delay, go to the emergency department for further evaluation. Follow-up with PCP in 7-10 days or sooner if needed Follow up with PCP soon in regards to your blood pressure which is elevated above threshold for referral. Blood pressure above 120/80 may indicate pre- hypertension. Minimal elevation 123/76 Patient Language: Turkmen Prescriptions: New metronidazole 500 mg tablet 500 mg PO Q12H Qty: 14 0RF Rx Instructions: take with food absolutely no alcohol while taking Follow-up/Referrals: PHYSICIAN,SPIRAL WINDING MACHINE HELPER [Primary Care Provider, Internal Medicine] Time of Disposition: 11:48 Quality [place] Coma Scale Eyes: Open Verbal: Oriented and Alert Motor: Follows Commands Coreen Coma Total Score: 15
[2025-05-30 11:27] LABS: EDUAAPPEAR Clear; EDUABILI 1+ (Negative); EDUABLOOD Negative (Negative); EDUACOLOR1 Dark; EDUAGLUCOSE Negative (Negative); EDUAKETONE 4+ (Negative); EDUALEUKO Negative (Negative); EDUANITRATE Negative (Negative); EDUAPH 6.0; EDUAPROTEIN 1+ (Negative); EDUASPGRAVITY 1.030; EDUAUROBILI 1.0
[2025-05-30 11:30] LABS: BEDSIDEPREGUCG Negative (Negative)
[2025-05-30 18:34] LABS: Trichomonas Vag PCR DETECTED (NOT DETECTE)
== END 2025-05-30 12:00 | disposition home or self-care (01) ==
PROVIDERS: Emergency Provider Registered Nurse
DX: N76.0 Acute vaginitis (principal); Z20.2 Contact with and (suspected) exposure to infections with a predominantly sexual mode of transmission; F17.210 Nicotine dependence, cigarettes, uncomplicated
CPT/HCPCS: 81003; 81025; 87491; 87591; 87661; 87798; 99213; G0463

== ENCOUNTER 2025-07-27 16:04 | Emergency (ER) | payer OTHER, SELFPAY ==
[2025-07-27 16:13] VITALS: BP 132/80; PULSE 86; RESP 16; TEMP 36.9; O2SAT 100
--- NOTE | 2025-07-27 16:23 | ED.FEMALEGU ---
HPI - Female Genitourinary General Chief complaint: Urogenital-Female Stated complaint: STD Time Seen by Provider: 07/27/25 16:21 Source: patient and RN notes reviewed Mode of arrival: ambulatory Limitations: no limitations History of Present Illness HPI Narrative: 20-year-old female presents with concern for exposure to trich. She reports she has been having vaginal discharge that has a foul odor. She reports she was treated for Trichomonas in May of this year, she reports she thinks she was exposed to it again and she has the same symptoms. She denies abdominal pain, vomiting, nausea, body aches, dysuria, frequency. MD elicited complaint: UTI Related Data Allergies Allergy/AdvReac Type Severity Reaction Status Date / Time No Known Allergies Allergy Verified 07/27/25 16:07 Review of Systems Review of Systems: CONSTITUTIONAL: Denies malaise, chills, sweats, or fever. CARDIOVASCULAR: Denies chest pain, palpitations, or edema. RESPIRATORY: Denies cough or dyspnea. GASTROINTESTINAL: Denies abdominal pain, nausea, vomiting, diarrhea GENITOURINARY: Reports foul-smelling vaginal discharge. Denies dysuria, frequency, urgency, suprapubic pressure. Denies flank pain or hematuria. SKIN: Denies rash or itching. MUSCULOSKELETAL: Denies back pain or myalgia. All systems reviewed & are unremarkable except as noted in HPI and below PMFSH Past Medical History Medical History Acute hemorrhoid Uterine cervical insufficiency during delivered twins at 22 weeks babies did not survive No active medical problems Social History Social History Smoking status: Current every day smoker Tobacco type: cigarettes Alcohol intake: unknown Substance use: unknown Gender identity (if verbalized by the patient): Female Comments At time of signature, agree with nursing past medical, surgical, social and family history. There is no relevant family history pertinent to the presenting complaint Exam Narrative: GENERAL: Well-appearing, well-nourished, and in no acute distress. HEAD: Normocephalic. EYES: PERRLA, conjunctivae clear. NECK: Supple. No lymphadenopathy CHEST: Clear to auscultation. No respiratory distress. HEART: Regular rate and rhythm. ABDOMEN: Soft, nontender upon palpation, nondistended, no palpable or pulsatile masses, no guarding. No CVA tenderness SKIN: Warm, dry, no rash. NEURO: Alert and oriented x3. PSYCH: Normal mood and affect Course Course Emergency Course: Patient is aware of diagnosis, understands and agrees to treatment plan. Anticipatory guidance given. Patient agrees to follow-up as directed and is aware of reasons to seek care at the emergency department. Portions of this record may have been created with voice recognition software Level of Care: Express Care Visit Vital Signs Vital signs: Vital Signs Temperature 98.4 F 07/27/25 16:13 Pulse Rate 86 07/27/25 16:13 Respiratory Rate 16 07/27/25 16:13 Blood Pressure 132/80 07/27/25 16:13 Pulse Oximetry 100 07/27/25 16:13 Oxygen Delivery Room Air 07/27/25 16:13 Temperature 98.4 F 07/27/25 16:13 Pulse Rate 86 07/27/25 16:13 Respiratory Rate 16 07/27/25 16:13 Blood Pressure 132/80 07/27/25 16:13 Pulse Oximetry 100 07/27/25 16:13 Oxygen Delivery Room Air 07/27/25 16:13 Reviewed. MDM - Female Genitourinary MDM Narrative Medical decision making narrative: Exam findings and UA show no acute concerns or changes; patient is non-toxic appearing and is in no distress. Patient is appropriate for outpatient treatment and follow-up. Differential Diagnosis Differential diagnosis: Likely urinary tract infection and cystitis Critical Care Time Critical Care Time Critical Care Time: No Discharge Plan Discharge Clinical Impression: Possible exposure to STD Patient Disposition: Home Condition: Stable Instructions: Antibiotic Form, Safe Sex Practices (ED) Additional Instructions: You have been tested for potential gonorrhea, chlamydia, and trichomoniasis today. You have received antibiotics to treat gonorrhea today, a prescription has been called into your pharmacy to treat chlamydia and trichomoniasis. You will receive a phone call in 2-3 days with the results of today's testing. It is very important that you avoid unprotected intercourse during treatment and for 7 days AFTER TREATMENT is complete and until your partner(s) have been treated. Please encourage your partner(s) to seek testing and treatment. When you have been exposed to sexually transmitted infections, it is important that you seek comprehensive testing, since we do not provide testing for all sexually transmitted infections. Some infections can have no symptoms, but cause serious health problems. Contact your health care provider or report to the emergency department if: You have genital swelling or pain, or unusual bleeding. You have joint pain, rash, swollen lymph nodes or night sweats. You are severe abdominal pain. You have a fever. Symptoms do not go away or they get worse even after treatment. You have bleeding or pain during sex. Patient Language: [place] Island[place] Prescriptions: New metronidazole 500 mg tablet 500 mg PO BID 7 Days Qty: 14 0RF doxycycline monohydrate 100 mg tablet 100 mg PO BID 7 Days Qty: 14 0RF Follow-up/Referrals: PHYSICIAN,ASSESSMENT RN [Primary Care Provider, Internal Medicine] Time of Disposition: 16:30
[2025-07-27 16:28] LABS: EDUAAPPEAR Cloudy; EDUABILI 1+ (Negative); EDUABLOOD Negative (Negative); EDUACOLOR1 Dark; EDUAGLUCOSE Negative (Negative); EDUAKETONE Trace (Negative); EDUALEUKO Negative (Negative); EDUANITRATE Negative (Negative); EDUAPH 7.0; EDUAPROTEIN 1+ (Negative); EDUASPGRAVITY 1.025; EDUAUROBILI 2.0
[2025-07-27] MEDS: cefTRIAXone 500 MG, LIDOCAINE 1% LOCAL INJ 1 ML IM (16:37)
[2025-07-27 21:00] LABS: Trichomonas Vag PCR NOT DETECTED (NOT DETECTE)
== END 2025-07-27 16:50 | disposition home or self-care (01) ==
PROVIDERS: Emergency Provider Nurse Practitioner
DX: Z20.2 Contact with and (suspected) exposure to infections with a predominantly sexual mode of transmission (principal); F17.210 Nicotine dependence, cigarettes, uncomplicated
CPT/HCPCS: 81003; 87086; 87491; 87591; 87661; 96372; 99213; G0463; J0696; J2003